=== PATIENT | female | born 1935 | race Caucasian/White ===

== ENCOUNTER 2020-01-27 18:25 | Inpatient (IN) ==
[2020-01-27] MEDS ORDERED: dilTIAZem HCl 5 MG/ML 5 ML VIAL IV STA (20:19)
[2020-01-27] MEDS ORDERED: STAT IV Infusion **Titration per Protocol STA (20:19)
[2020-01-27] MEDS ORDERED: dilTIAZem HCL 125 MG in DEXTROSE 5% 100 ML IV SCH (20:30)
[2020-01-27 20:31] LABS: Basophils # (auto) 0.01 K/uL (0-0.2); Basophils % (auto) 0.1 %; Eosinophils # (auto) 0.02 K/uL (0-0.5); Eosinophils % (auto) 0.2 %; Hematocrit (blood only) 40.7 % (37-47); Hemoglobin 13.1 g/dL (12.0-16.0); Immature Granulocytes # (auto) 0.01 K/uL (0.00-0.02); Immature Granulocytes % (auto) 0.1 %; Lymphocytes # (auto) 1.21 K/uL (1.2-3.4); Mean Corpuscular Hemoglobin 29.3 pg (25-34); Mean Corpuscular Hgb Conc 32.2 g/dL (32-36); Mean Corpuscular Volume 91.1 fL (80-100); Mean Platelet Volume 10.1 fL (7.4-10.4); Monocytes # (auto) 0.87 K/uL (0.11-0.59); Monocytes % (auto) 9.4 %; Neutrophils # (auto) 7.17 K/uL (1.4-6.5); Neutrophils % (auto) 77.2 %; Platelet Count 210 K/uL (130-400); RDW Coefficient of Variation 14.4 % (11.5-14.5); RDW Standard Deviation 47.4 fL (36.4-46.3); Red Blood Count 4.47 M/uL (4.2-5.4); White Blood Count 9.29 K/uL (4.8-10.8)
--- NOTE | 2020-01-27 20:38 | Emergency Department Note ---
History of Present Illness General Chief complaint: Illness Stated complaint: CHF, KIDNEY FAILURE, SOB Time Seen by Provider: 01/27/20 20:10 Source: patient Mode of arrival: ambulatory Limitations: no limitations History of Present Illness Provider complaint: Weakness Zentz to the ED with a chief complaint of generalized weakness. The patient also reports some shortness of breath. Her shortness of breath and symptoms are worse with exertion. She states that her symptoms started on Thursday with some chest pressure as well. She used 2 nitroglycerin sublingual's and this resolved. She saw her doctor this week and had some blood work performed. She was actually in to see her PCP yesterday as well. They told her that she should come in for evaluation to the emergency department. No additional complaints at this time. No recent fever or illness. Home Medications Medication Instructions Recorded Confirmed Type acetaminophen [Tylenol Arthritis 650 mg PO BID PRN 11/17/17 01/27/20 History Pain] albuterol sulfate 2.5 mg INHALATION Q4 PRN 11/17/17 01/27/20 History allopurinol 100 mg PO BID 11/17/17 01/27/20 History atorvastatin 10 mg PO QPM 11/17/17 01/27/20 History glucosamine-chondroitin [Osteo 1 tab PO DAILY 11/17/17 01/27/20 History Bi-Flex] metformin 500 mg PO BID 11/17/17 01/27/20 History nitroglycerin [Nitrostat] 0.4 mg SUBLINGUAL DIRECTED PRN 11/17/17 01/27/20 History Oxygen Home #1 ea 01/04/19 11/21/19 History albuterol sulfate 90 mcg/actuation 90 mcg INHALATION .INHALE 2 PUFFS 01/04/19 01/27/20 History aerosol inhaler EVERY #1 gm amlodipine 2.5 mg tablet 7.5 mg PO QAM #90 tab 08/24/19 01/27/20 Rx glipizide 5 mg tablet 2.5 mg PO BID tab 11/21/19 01/27/20 History sildenafil (pulm.hypertension) 20 See Rx Instructions .ROUTE 01/02/20 01/27/20 Rx mg tablet .COMPLEX #90 tablet aspirin [Aspirin Low Dose] 81 mg PO DAILY 01/27/20 01/27/20 History furosemide 40 mg PO UD 01/27/20 01/27/20 History warfarin [Jantoven] 7.5 mg PO UD 01/27/20 01/27/20 History Allergies Allergy/AdvReac Type Severity Reaction Status Date / Time Sulfa (Sulfonamide Allergy Unknown Unknown Verified 01/27/20 21:43 Antibiotics) Past Med/Surg History Medical History (Updated 01/27/20 @ 22:28 by Manpreet Keating DO) Atrial fibrillation Carotid artery disease S/P ENDARTERECTOMY (R) 8-10YRS AGO Chronic back pain CKD (chronic kidney disease) stage 3, GFR 30-59 ml/min Congestive heart failure DIASTOLIC Diabetes mellitus, type 2 Gout Hyperlipidemia Hypertension Kidney stones On home oxygen therapy 4L DAYTIME 5 L HS NASAL CANNULA JASMIN (obstructive sleep apnea) Osteoarthritis Pulmonary embolism SPONTANEOUS, 7 YRS YRS AGO-ON COUMADIN-NO ISSUES SINCE Pulmonary hypertension SEVERE, COR PULMONALE Respiratory failure SOB (shortness of breath) Surgical History H/O carotid endarterectomy RIGHT H/O colonoscopy H/O cystoscopy 11/2017 History of appendectomy History of cystoscopy STENT INSERTION History of dental surgery Family History Other ESRD (end stage renal disease) Social History Smoking Status: Never smoker Second Hand Exposure: No; Hx Alcohol Use: No Hx Substance Use: No Preferred Language: Slovenian Communication Ability: Effective Visual Impairment: No Limitations Stockroom Helper Required: No Beliefs That Will Affect Care: None marital status: / Current Living Situation: Alone Current Living Situation Comment: FAMILY IN AND OUT Feels Safe at Home: Yes Assistive Devices: Cane, Denture - Upper, Denture - Lower, Glasses and Oxygen - Continuous Review of Systems A total of 10 systems reviewed and were otherwise negative Physical Exam Vital Signs Vital Signs - 24 hr 01/27/20 18:51 01/27/20 18:56 01/27/20 20:40 Temperature 36.5 C Temperature Source Oral Pulse Rate 111 H 150 H Pulse Rate from SpO2 Sensor Respiratory Rate 18 20 Blood Pressure 131/76 Blood Pressure Mean 94 Pulse Oximetry 87 L 93 88 L Oxygen Delivery Method Nasal Cannula Nasal Cannula Nasal Cannula Oxygen Flow Rate 4 6 4 Sepsis Recent Fever Within 48 Hours No Sepsis New/Unexplained Change in Mental Status N/A Sepsis Action Taken by Nursing No Action Required Oxygen Flow Rate - Titration Pulse Oximetry Post Tiitration 01/27/20 20:41 01/27/20 21:00 01/27/20 21:09 Temperature Temperature Source Pulse Rate 104 H 103 H Pulse Rate from SpO2 Sensor 105 H 105 H Respiratory Rate 20 20 Blood Pressure 111/79 Blood Pressure Mean 89 Pulse Oximetry 88 L 94 93 Oxygen Delivery Method Nasal Cannula Oxymask Oxymask Oxygen Flow Rate 4 10 10 Sepsis Recent Fever Within 48 Hours Sepsis New/Unexplained Change in Mental Status Sepsis Action Taken by Nursing Oxygen Flow Rate - Titration 10 Pulse Oximetry Post Tiitration 94 01/27/20 21:15 01/27/20 21:30 01/27/20 21:45 Temperature Temperature Source Pulse Rate 103 H 104 H 109 H Pulse Rate from SpO2 Sensor 109 H 103 H 111 H Respiratory Rate 23 24 21 Blood Pressure 105/74 Blood Pressure Mean 77 Pulse Oximetry 90 93 92 Oxygen Delivery Method Oxymask Oxymask Oxymask Oxygen Flow Rate 10 10 10 Sepsis Recent Fever Within 48 Hours Sepsis New/Unexplained Change in Mental Status Sepsis Action Taken by Nursing Oxygen Flow Rate - Titration Pulse Oximetry Post Tiitration 01/27/20 22:00 01/27/20 22:15 01/27/20 22:30 Temperature Temperature Source Pulse Rate 117 H 112 H 117 H Pulse Rate from SpO2 Sensor 118 H 106 H 122 H Respiratory Rate 18 23 16 Blood Pressure 108/73 Blood Pressure Mean 80 Pulse Oximetry 93 91 92 Oxygen Delivery Method Oxymask Oxymask Oxymask Oxygen Flow Rate 10 10 10 Sepsis Recent Fever Within 48 Hours Sepsis New/Unexplained Change in Mental Status Sepsis Action Taken by Nursing Oxygen Flow Rate - Titration Pulse Oximetry Post Tiitration 01/27/20 22:45 01/27/20 23:04 Temperature Temperature Source Pulse Rate 108 H 110 H Pulse Rate from SpO2 Sensor 114 H Respiratory Rate 23 Blood Pressure Blood Pressure Mean Pulse Oximetry 90 Oxygen Delivery Method Oxymask Oxygen Flow Rate 10 Sepsis Recent Fever Within 48 Hours Sepsis New/Unexplained Change in Mental Status Sepsis Action Taken by Nursing Oxygen Flow Rate - Titration Pulse Oximetry Post Tiitration CONSTITUTIONAL/VITAL SIGNS: Reviewed / noted above. GENERAL: Non-toxic in appearance. INTEGUMENTARY: Warm, dry, and [place]. HEAD: Normocephalic. EYES: without scleral icterus or trauma. ENT/OROPHARYNX: clear and moist. LYMPHADENOPATHY/NECK: Is supple without lymphadenopathy or meningismus. RESPIRATORY: Lungs reveal some basilar crackles. No increased work of breathing. CARDIOVASCULAR: Tachycardic rate and irregular rhythm. GI/ABDOMEN: Soft and nontender. No organomegaly or pulsatile mass. No rebound or guarding. Normal bowel sounds. EXTREMITIES: Warm and well perfused. BACK: No CVA tenderness. NEUROLOGICAL: Intact without focal deficits. PSYCHIATRIC: normal affect. MUSCULOSKELETAL: Normally developed with good muscle tone. TRIAGE NURSING DOCUMENTATION REVIEWED. Course Administered Medications Diltiazem HCl 125 mg/ Dextrose 125 mls @ 10 mls/hr IV .[id number] [facility]; Protocol Stop: 02/26/20 20:29 Last Titration: 01/27/20 22:53 Dose: 15 mg/hr, 15 mls/hr Documented by: [id number] Cosigned by: [id number] Titration: 01/27/20 22:19 Dose: 10 mg/hr, 10 mls/hr Documented by: [id number] Cosigned by: [id number] Admin: 01/27/20 21:22 Dose: 5 mg/hr, 5 mls/hr Documented by: [id number] Cosigned by: [id number] Discontinued Medications Diltiazem HCl (Diltiazem Hcl 5 Mg/Ml 5 Ml Vial) 20 mg IV NOW STA Stop: 01/27/20 20:20 Last Admin: 01/27/20 20:33 Dose: 20 mg Documented by: [id number] Cosigned by: [id number] Digoxin 250 mcg/ Syringe 10 mls @ 2 mls/min IV NOW STA Stop: 01/27/20 22:42 Last Admin: 01/27/20 23:04 Dose: 2 mls/min Documented by: [id number] Miscellaneous (Stat Iv Infusion Titration Per Protocol) 1 ea N/A NOW STA Stop: 01/27/20 20:20 Last Admin: 01/27/20 21:22 Dose: 1 ea Documented by: [id number] Critical Care Time Critical Care Time: Yes Total Critical Care Time: 35 I have personally spent 35 minutes of critical care time in the direct managem ent of this patient. This includes bedside care, interpretation of diagnostic studies, and testing, discussion with consultants, patient, and family members, and other required patient management activities. This 35 minutes is in excess of all separately billable procedures. Medical Decision Making Differential Diagnosis The differential that was considered includes acute myocardial infarction, acute coronary syndrome, myocarditis, pericarditis, pericardial effusions /tamponade, esophageal perforation, thoracic aortic dissection, pulmonary embolism, pneumonia, pneumothorax, pancreatitis, shingles, acute cholecystitis, perforated abdominal viscus. Medical Records Attestation: I reviewed the patient's medical records. Home Medications Current Medication List: was personally reviewed by me Laboratory Data Attestation: I reviewed the patient's lab results. Result diagrams: 01/27/20 20:14 01/27/20 20:14 Lab Results 01/27/20 01/27/20 01/27/20 Range/Units 20:14 20:14 20:14 WBC 9.29 (4.8-10.8) K/uL RBC 4.47 (4.2-5.4) M/uL Hgb 13.1 (12.0-16.0) g/dL Hct 40.7 (37-47) % MCV 91.1 (80-100) fL MCH 29.3 (25-34) pg MCHC 32.2 (32-36) g/dL RDW Std Deviation 47.4 H (36.4-46.3) fL RDW Coeff of Bravo 14.4 (11.5-14.5) % Plt Count 210 (130-400) K/uL MPV 10.1 (7.4-10.4) fL Immature Gran % (Auto) 0.1 % Neut % (Auto) 77.2 % Lymph % (Auto) 13.0 % [place] % (Auto) 9.4 % Eos % (Auto) 0.2 % Baso % (Auto) 0.1 % Neut # (Auto) 7.17 H (1.4-6.5) K/uL Lymph # (Auto) 1.21 (1.2-3.4) K/uL [place] # (Auto) 0.87 H (0.11-0.59) K/uL Eos # (Auto) 0.02 (0-0.5) K/uL Baso # (Auto) 0.01 (0-0.2) K/uL Immature Gran # (Auto) 0.01 (0.00-0.02) K/uL PT 41.8 H (9.0-12.0) Seconds INR 4.3 H (0.9-1.1) APTT 35.1 H (21.0-31.0) Seconds PTT Ratio 1.3 ABG pH (7.35-7.45) ABG pCO2 (35-46) mmHg ABG pO2 (80-95) mmHg ABG HCO3 (19-24) mmol/L ABG O2 Saturation (90-95) % ABG Base Excess (-9-1.8) mEq/L Remy Test (Pos) Barometric Pressure mm/Hg Oxygen Given Sodium 137 (136-145) mmol/L Potassium 5.0 (3.5-5.1) mmol/L Chloride 106 (98-107) mmol/L Carbon Dioxide 24 (21-32) mmol/L Anion Gap 7.0 (3-11) BUN 70 H (7-18) mg/dl Creatinine 2.22 H (0.6-1.2) mg/dl Est Cr Clr Drug Dosing 15.4 ml/min Est GFR ( Amer) 22.4 Est GFR (Non-Af Amer) 19.3 BUN/Creatinine Ratio 31.7 H (10-20) Glucose 157 H (70-99) mg/dl Calcium 9.6 (8.5-10.1) mg/dl Magnesium 2.3 (1.8-2.4) mg/dl Total Bilirubin 0.8 (0.2-1) mg/dl AST 29 (15-37) U/L ALT 23 (12-78) U/L Alkaline Phosphatase 98 (45-117) U/L Total Creatine Kinase 87 (26-192) U/L Troponin I 2.230 H* (0-0.045) ng/ml Total Protein 7.6 (6.4-8.2) gm/dl Albumin 3.6 (3.4-5.0) gm/dl Globulin 4.0 (2.5-4.0) gm/dl Albumin/Globulin Ratio 0.9 (0.9-2) Lipase 283 (73-393) U/L TSH (0.300-4.500) uIu/ml SARS-CoV-2 Ag (Rapid) (Negative) 01/27/20 01/27/20 01/27/20 Range/Units 20:14 22:55 Unknown WBC (4.8-10.8) K/uL RBC (4.2-5.4) M/uL Hgb (12.0-16.0) g/dL Hct (37-47) % MCV (80-100) fL MCH (25-34) pg MCHC (32-36) g/dL RDW Std Deviation (36.4-46.3) fL RDW Coeff of Bravo (11.5-14.5) % Plt Count (130-400) K/uL MPV (7.4-10.4) fL Immature Gran % (Auto) % Neut % (Auto) % Lymph % (Auto) % [place] % (Auto) % Eos % (Auto) % Baso % (Auto) % Neut # (Auto) (1.4-6.5) K/uL Lymph # (Auto) (1.2-3.4) K/uL [place] # (Auto) (0.11-0.59) K/uL Eos # (Auto) (0-0.5) K/uL Baso # (Auto) (0-0.2) K/uL Immature Gran # (Auto) (0.00-0.02) K/uL PT (9.0-12.0) Seconds INR (0.9-1.1) APTT (21.0-31.0) Seconds PTT Ratio ABG pH 7.46 H (7.35-7.45) ABG pCO2 33 L (35-46) mmHg ABG pO2 60 L (80-95) mmHg ABG HCO3 23 (19-24) mmol/L ABG O2 Saturation 90.7 (90-95) % ABG Base Excess -0.4 (-9-1.8) mEq/L Remy Test POS (Pos) Barometric Pressure 742.2 mm/Hg Oxygen Given 10 L Sodium (136-145) mmol/L Potassium (3.5-5.1) mmol/L Chloride (98-107) mmol/L Carbon Dioxide (21-32) mmol/L Anion Gap (3-11) BUN (7-18) mg/dl Creatinine (0.6-1.2) mg/dl Est Cr Clr Drug Dosing ml/min Est GFR ( Amer) Est GFR (Non-Af Amer) BUN/Creatinine Ratio (10-20) Glucose (70-99) mg/dl Calcium (8.5-10.1) mg/dl Magnesium (1.8-2.4) mg/dl Total Bilirubin (0.2-1) mg/dl AST (15-37) U/L ALT (12-78) U/L Alkaline Phosphatase (45-117) U/L Total Creatine Kinase (26-192) U/L Troponin I (0-0.045) ng/ml Total Protein (6.4-8.2) gm/dl Albumin (3.4-5.0) gm/dl Globulin (2.5-4.0) gm/dl Albumin/Globulin Ratio (0.9-2) Lipase (73-393) U/L TSH 8.030 H (0.300-4.500) uIu/ml SARS-CoV-2 Ag (Rapid) Negative (Negative) Imaging Data Radiologist's Impression: SINGLE VIEW CHEST CLINICAL HISTORY: Atypical chest pain. FINDINGS: An AP, portable, upright chest radiograph is compared to study dated 11/30/2017. Correlation is made with chest CT dated 10/21/2011. The heart is markedly enlarged noting atherosclerotic calcification of the thoracic aorta. There is pulmonary vascular congestion. Small pleural effusions are noted with bibasilar atelectasis. Hazy airspace opacities are seen bilaterally. No pneumothorax is seen. The skeletal structures are osteopenic. The bony thorax is grossly intact. IMPRESSION: 1. Cardiomegaly with evidence of congestive failure. 2. Small pleural effusions. 3. Hazy bilateral airspace opacities likely represent interstitial edema. Correlate clinically for evidence of a superimposed infectious/inflammatory pneumonitis. ECG Data Attestation: I personally reviewed and interpreted this ECG as follows: Indication: + SOB/dyspnea Rate (beats per minute): 145 Rhythm: + atrial flutter ECG ST segments: no ST elevation ECG Findings: no PVCs MDM Narrative This is an 85-year-old female who presents to the ED with a chief complaint of some chest pressure, weakness and shortness of breath as detailed above. Patient exam reveals a flutter with RVR with a heart rate of 145. She does have a history of PE and is chronically on Coumadin. She had some blood work yesterday that showed a BUN of 60 and a creatinine of 2.0. The patient's BUN today is 70 and creatinine is 2.2. Glucose is 157. Troponin is elevated at 2.2. Chest x-ray is suggestive of congestive heart failure. The patient's INR is 4.3. The patient was treated with IV Cardizem bolus and drip. She was not given diuretics as her blood pressure was low normal and she needed titration room for the Cardizem drip. I spoke with the hospitalist. He will see the patient for further evaluation and care. The heart rate did improve some during her stay. Impression & Plan Atrial flutter with rapid ventricular response Discharge Plan Visit Data Chief Complaint: Illness Stated Complaint: CHF, KIDNEY FAILURE, SOB ED Provider: Manpreet Keating Discharge Problem: Atrial flutter with rapid ventricular response Patient Disposition: Being Evaluated by Hospitalist Forms Stand Alone Forms: [facility] Prescriptions Prescriptions: No Action amlodipine 2.5 mg tablet 7.5 mg PO QAM Qty: 90 RF: 5 sildenafil (pulm.hypertension) 20 mg tablet See Rx Instructions .ROUTE .COMPLEX Qty: 90 RF: 1 albuterol sulfate 90 mcg/actuation HFA aerosol inhaler 90 mcg inhalation .INHALE 2 PUFFS EVERY Qty: 1 RF: 0 (DME) Oxygen Home Liters Per Minute See Dose Instructions .ROUTE .MEDSUPPLY Qty: 1 RF: 0 glipizide 5 mg tablet 2.5 mg PO BID RF: 0 metformin 500 mg Tablet 500 mg PO BID RF: 0 albuterol sulfate 2.5 mg /3 mL (0.083 %) Solution For Nebulization 2.5 mg INHALATION Q4 PRN (Reason: Shortness Of Breath) RF: 0 atorvastatin 10 mg Tablet 10 mg PO QPM RF: 0 allopurinol 100 mg Tablet 100 mg PO BID RF: 0 acetaminophen [Tylenol Arthritis Pain] 650 mg Tablet Extended Release 650 mg PO BID PRN (Reason: Pain) RF: 0 nitroglycerin [Nitrostat] 0.4 mg Tablet, Sublingual 0.4 mg Sublingual DIRECTED PRN (Reason: Chest Pain) RF: 0 glucosamine-chondroitin [Osteo Bi-Flex] 250-200 mg Tablet 1 tab PO DAILY RF: 0 furosemide 40 mg tablet 40 mg PO UD RF: 0 aspirin [Aspirin Low Dose] 81 mg Tablet,Delayed Release (Dr/Ec) 81 mg PO DAILY RF: 0 warfarin [Jantoven] 7.5 mg tablet 7.5 mg PO UD RF: 0 Referrals Referrals: Peter Lester MD [Primary Care Provider] -
[2020-01-27 20:42] LABS: Albumin Level 3.6 gm/dl (3.4-5.0); BUN Creatinine Ratio 31.7 (10-20); Calcium 9.6 mg/dl (8.5-10.1); Creatinine Clr Calc Pharmacy 15.4 ml/min; Est GFR (African American) 22.4; Est GFR (Non-African American) 19.3
[2020-01-27 20:51] LABS: Albumin Globulin Ratio 0.9 (0.9-2); Bilirubin,Total 0.8 mg/dl (0.2-1); INR 4.3 (0.9-1.1); Partial Thromboplastin Ratio 1.3; Partial Thromboplastin Time 35.1 Seconds (21.0-31.0); Prothrombin Time 41.8 Seconds (9.0-12.0); Total Protein 7.6 gm/dl (6.4-8.2); Troponin I 2.23 ng/ml (0-0.045)
--- NOTE | 2020-01-27 21:11 | XRay Report ---
SINGLE VIEW CHEST CLINICAL HISTORY: Atypical chest pain. FINDINGS: An AP, portable, upright chest radiograph is compared to study dated 11/30/2017. Correlation is made with chest CT dated 10/21/2011. The heart is markedly enlarged noting atherosclerotic calcifi cation of the thoracic aorta. There is pulmonary vascular congestion. Small pleural effusions are not ed with bibasilar atelectasis. Hazy airspace opacities are seen bilaterally. No pneumothorax is seen. The skeletal structures are osteopenic. The bony thorax is grossly intact. IMPRESSION: 1. Cardiomegaly with evidence of congestive failure. 2. Small pleural effusions. 3. Hazy bilateral airspace opacities likely represent interstitial edema. Correlate clinically for ev idence of a superimposed infectious/inflammatory pneumonitis. ACT 112: Negative or not required by law. Electronically signed by: Rohit Olmedo M.D. 01/27/2020 9:09 PM
[2020-01-27] MEDS ORDERED: FUROSEMIDE 40 MG/4 ML VIAL IV STA (22:38)
[2020-01-27] MEDS ORDERED: DIGOXIN 250 MCG in SYRINGE 9 ML IV STA (22:38)
[2020-01-27] MEDS ORDERED: METOPROLOL TARTRATE 50 MG TAB PO STA (22:40)
[2020-01-27] MEDS ORDERED: ALBUMIN 25% 12.5 GM/50 ML VIAL IV STA (22:51)
[2020-01-27 22:54] LABS: Magnesium 2.3 mg/dl (1.8-2.4)
[2020-01-27 23:20] LABS: Allen Test POS (Pos); Base Excess ABG -0.4 mEq/L (-9-1.8); HCO3 ABG 23 mmol/L (19-24); Oxygen Saturation ABG 90.7 % (90-95); PCO2 ABG 33 mmHg (35-46); PO2 ABG 60 mmHg (80-95); pH ABG 7.46 (7.35-7.45)
[2020-01-28] MEDS ORDERED: IPRATROPIUM BROMIDE NEB SOLN 0.02% 2.5 ML VIAL INH SCH (00:06)
[2020-01-28] MEDS ORDERED: LEVALBUTEROL 1.25MG/0.5ML NEB INH SCH (00:06)
[2020-01-28 00:42] LABS: Appearance Urine Clear (Clear); Bacteria Urine Automated 1+ (Negative); Bilirubin Urine Negative (Negative); Blood Urine Negative (Negative); Color Urine Yellow; Epithelial Cell Urine Auto >30 /lpf (0-5); Glucose Urine UA Negative (Negative); Ketones Urine Negative (Negative); Leukocyte Esterase Urine Trace (Negative); Nitrite Urine Negative (Negative); Protein Urine Trace (Negative); RBC Urine Automated 0-4 /hpf (0-4); Specific Gravity Urine 1.022 (1.000-1.030); Urobilinogen Urine Negative (Negative)
--- NOTE | 2020-01-28 00:43 | History & Physical Report ---
Date of Service January 27, 2020 (LATE ENTRY) Assessment & Plan (1) Respiratory failure, acute and chronic: Acute on chronic History of chronic respiratory failure secondary to pulmonary hypertension/nocturnal hypoxemia on home O2 as per records Secondary to decompensated heart failure Multifactorial : NSTEMI Rapid atrial flutter, hx PAF as per records ? Cardiorenal syndrome (ARF on CKD) Hypertension, BP on the lower side hx PE on Coumadin, INR supratherapeutic PVD sp surgery DM 2 on oral meds, well controlled as of recent outpatient hemoglobin A1c of 6.6, September 2019 PCU Supplemental O2 Lasix albumin Follow renal function Initiate beta-jayson Rx for ACS, CHF, atrial flutter, hx AF Wean off Cardizem infusion Trend troponin Continue home aspirin for CAD prevention TTE, Cardiology consult RE ACS, recurrent AF, decompensated CHF Nephrology consult Re: ARF on CKD ISS BG goal 140-180, update hemoglobin A1c DVT prophylaxis. Coumadin INR goal between 2 and 3 Full code Patient's daughters requesting updates from providers. Ms. Ynes Ramon thru [phone]. Ms. Iemlda Kinney thru [phone]. Total critical time was 45 minutes. Text document was generated using [employer] voice recognition software. It may contain grammatical or spelling errors. Kindly contact undersigned for clarification of any documentation item in question. History of Present Illness Chief Complaint: Shortness of breath Primary Care Provider: Peter Lester MD History obtained from patient, family, and records. Medical history significant for chronic respiratory failure secondary to pulmonary hypertension secondary to nocturnal hypoxemia on home O2, chronic diastolic heart failure EF of 65-69% (TTE 2016), PAF, HTN, PVD status post surgery, history PE on Coumadin, DM2 on oral meds, CRI (baseline creatinine 1.3) Last confinement November 2017 for respiratory failure secondary to possible aspiration. Last week, patient noted achy substernal chest heaviness without radiation and shortness of breath at home during exertion. No unusual cough symptoms. Chest discomfort relieved by nitroglycerin intake at home. Patient did not want to go to the ER for evaluation as per family. Worsening shortness of breath on exertion the next few days along with fluid retention as per patient. Minimal abdominal discomfort, patient worried about "silent" kidney stones. Denies OTC NSAID intake or dietary indiscretion. Patient seen at PCP's office yesterday. Blood pressure noted to be low, patient noted to be tachycardic but regular as per outpatient documentation. ER evaluation recommended by PCP due to concerns about possible heart failure. Chest x-ray showed congestion as per PCP note. Outpatient serum creatinine noted to be 2. Patient eventually heeded PCP's advice and family's urging to go to the ER to get evaluated. Patient noted to be in rapid A. fib, cardiac rate 150s at the highest upon arrival at the ER. IV Cardizem infusion initiated at the ER. Medical History as above Surgical History : Carotid endarterectomy, cystoscopy Family History : ESRD Personal/Social history : Non-smoker, no EtOH intake, lives by herself Allergies Allergy/AdvReac Type Severity Reaction Status Date / Time Sulfa (Sulfonamide Allergy Unknown Unknown Verified 01/27/20 21:43 Antibiotics) Home Medications Medication Instructions Recorded Confirmed Type acetaminophen [Tylenol Arthritis 650 mg PO BID PRN 11/17/17 01/27/20 History Pain] albuterol sulfate 2.5 mg INHALATION Q4 PRN 11/17/17 01/27/20 History allopurinol 100 mg PO BID 11/17/17 01/27/20 History atorvastatin 10 mg PO QPM 11/17/17 01/27/20 History glucosamine-chondroitin [Osteo 1 tab PO DAILY 11/17/17 01/27/20 History Bi-Flex] metformin 500 mg PO BID 11/17/17 01/27/20 History nitroglycerin [Nitrostat] 0.4 mg SUBLINGUAL DIRECTED PRN 11/17/17 01/27/20 History Oxygen Home #1 ea 01/04/19 11/21/19 History albuterol sulfate 90 mcg/actuation 90 mcg INHALATION .INHALE 2 PUFFS 01/04/19 01/27/20 History aerosol inhaler EVERY #1 gm amlodipine 2.5 mg tablet 7.5 mg PO QAM #90 tab 08/24/19 01/27/20 Rx glipizide 5 mg tablet 2.5 mg PO BID tab 11/21/19 01/27/20 History sildenafil (pulm.hypertension) 20 See Rx Instructions .ROUTE 01/02/20 01/27/20 Rx mg tablet .COMPLEX #90 tablet aspirin [Aspirin Low Dose] 81 mg PO DAILY 01/27/20 01/27/20 History furosemide 40 mg PO UD 01/27/20 01/27/20 History warfarin [Jantoven] 7.5 mg PO UD 01/27/20 01/27/20 History Past Med/Surg History Medical History (Updated 01/28/20 @ 08:34 by Favian Odom MD) Atrial fibrillation Carotid artery disease S/P ENDARTERECTOMY (R) 8-10YRS AGO Chronic back pain CKD (chronic kidney disease) stage 3, GFR 30-59 ml/min Congestive heart failure DIASTOLIC Diabetes mellitus, type 2 Gout Hyperlipidemia Hypertension Kidney stones On home oxygen therapy 4L DAYTIME 5 L HS NASAL CANNULA JASMIN (obstructive sleep apnea) Osteoarthritis Pulmonary embolism SPONTANEOUS, 7 YRS YRS AGO-ON COUMADIN-NO ISSUES SINCE Pulmonary hypertension SEVERE, COR PULMONALE Respiratory failure SOB (shortness of breath) Surgical History H/O carotid endarterectomy RIGHT H/O colonoscopy H/O cystoscopy 11/2017 History of appendectomy History of cystoscopy STENT INSERTION History of dental surgery Family History Other ESRD (end stage renal disease) Social History Smoking Status: Never smoker Second Hand Exposure: No; Hx Alcohol Use: No Hx Substance Use: No Preferred Language: Bhutanese Communication Ability: Effective Visual Impairment: No Limitations Quantitative Analyst [employer] Required: No Beliefs That Will Affect Care: None marital status: / Current Living Situation: Alone Feels Safe at Home: Yes Assistive Devices: Glasses Review of Systems Review of Systems: As per HPI, all 10 systems reviewed, all other ROS negative Physical Exam Physical Exam: GENERAL: Comfortable, pleasant, minimal respiratory distress SKIN: Normal color , warm HEENT: [place] palpebral conjunctivae, no ptosis, dry buccal mucosa, O2 mask in place NECK : Supple, no tenderness CHEST : Decreased breath sounds, occasional expiratory wheezes, no tenderness HEART : Irregular, tachycardic, no obvious murmurs ABDOMEN: Some distention, nontender EXTREMITIES : Minimal LE swelling, no LE tenderness, no other conspicuous deformities noted NEUROLOGIC : Coherent, no facial asymmetry, mild hearing impairment, no other gross focality Results & Data Results & Data ([facility]) Vital Signs (Past 12 Hours) Vital Signs Temp Pulse Resp BP Pulse Ox 01/27/20 23:04 110 H 01/27/20 22:45 108 H 23 90 01/27/20 22:30 117 H 16 92 01/27/20 22:15 112 H 23 91 01/27/20 22:00 117 H 18 108/73 93 01/27/20 21:45 109 H 21 92 01/27/20 21:30 104 H 24 105/74 93 01/27/20 21:15 103 H 23 90 01/27/20 21:09 103 H 20 93 01/27/20 21:00 104 H 20 111/79 94 01/27/20 20:41 88 L 01/27/20 20:40 150 H 20 88 L 01/27/20 18:56 93 01/27/20 18:51 36.5 C 111 H 18 131/76 87 L Laboratory Results Laboratory Results WBC 9.29 K/uL (4.8-10.8) 01/27/20 20:14 RBC 4.47 M/uL (4.2-5.4) 01/27/20 20:14 Hgb 13.1 g/dL (12.0-16.0) 01/27/20 20:14 Hct 40.7 % (37-47) 01/27/20 20:14 MCV 91.1 fL (80-100) 01/27/20 20:14 MCH 29.3 pg (25-34) 01/27/20 20:14 MCHC 32.2 g/dL (32-36) 01/27/20 20:14 RDW Std Deviation 47.4 fL (36.4-46.3) H 01/27/20 20:14 RDW Coeff of Bravo 14.4 % (11.5-14.5) 01/27/20 20:14 Plt Count 210 K/uL (130-400) 01/27/20 20:14 MPV 10.1 fL (7.4-10.4) 01/27/20 20:14 Immature Gran % (Auto) 0.1 % 01/27/20 20:14 Neut % (Auto) 77.2 % 01/27/20 20:14 Lymph % (Auto) 13.0 % 01/27/20 20:14 [place] % (Auto) 9.4 % 01/27/20 20:14 Eos % (Auto) 0.2 % 01/27/20 20:14 Baso % (Auto) 0.1 % 01/27/20 20:14 Neut # (Auto) 7.17 K/uL (1.4-6.5) H 01/27/20 20:14 Lymph # (Auto) 1.21 K/uL (1.2-3.4) 01/27/20 20:14 [place] # (Auto) 0.87 K/uL (0.11-0.59) H 01/27/20 20:14 Eos # (Auto) 0.02 K/uL (0-0.5) 01/27/20 20:14 Baso # (Auto) 0.01 K/uL (0-0.2) 01/27/20 20:14 Immature Gran # (Auto) 0.01 K/uL (0.00-0.02) 01/27/20 20:14 PT 41.8 Seconds (9.0-12.0) H 01/27/20 20:14 INR 4.3 (0.9-1.1) H 01/27/20 20:14 APTT 35.1 Seconds (21.0-31.0) H 01/27/20 20:14 PTT Ratio 1.3 01/27/20 20:14 ABG pH 7.46 (7.35-7.45) H 01/27/20 22:55 ABG pCO2 33 mmHg (35-46) L 01/27/20 22:55 ABG pO2 60 mmHg (80-95) L 01/27/20 22:55 ABG HCO3 23 mmol/L (19-24) 01/27/20 22:55 ABG O2 Saturation 90.7 % (90-95) 01/27/20 22:55 ABG Base Excess -0.4 mEq/L (-9-1.8) 01/27/20 22:55 Remy Test POS (Pos) 01/27/20 22:55 Barometric Pressure 742.2 mm/Hg 01/27/20 22:55 Oxygen Given 10 L 01/27/20 22:55 Sodium 137 mmol/L (136-145) 01/27/20 20:14 Potassium 5.0 mmol/L (3.5-5.1) 11/20/20 20:14 Chloride 106 mmol/L (98-107) 01/27/20 20:14 Carbon Dioxide 24 mmol/L (21-32) 01/27/20 20:14 Anion Gap 7.0 (3-11) 01/27/20 20:14 BUN 70 mg/dl (7-18) H 01/27/20 20:14 Creatinine 2.22 mg/dl (0.6-1.2) H 01/27/20 20:14 Est Cr Clr Drug Dosing 15.4 ml/min 01/27/20 20:14 Est GFR ( Amer) 22.4 01/27/20 20:14 Est GFR (Non-Af Amer) 19.3 01/27/20 20:14 BUN/Creatinine Ratio 31.7 (10-20) H 01/27/20 20:14 Glucose 157 mg/dl (70-99) H 01/27/20 20:14 Calcium 9.6 mg/dl (8.5-10.1) 01/27/20 20:14 Magnesium 2.3 mg/dl (1.8-2.4) 01/27/20 20:14 Total Bilirubin 0.8 mg/dl (0.2-1) 01/27/20 20:14 AST 29 U/L (15-37) 01/27/20 20:14 ALT 23 U/L (12-78) 01/27/20 20:14 Alkaline Phosphatase 98 U/L (45-117) 01/27/20 20:14 Total Creatine Kinase 87 U/L (26-192) 01/27/20 20:14 Troponin I 2.230 ng/ml (0-0.045) H* 01/27/20 20:14 Total Protein 7.6 gm/dl (6.4-8.2) 01/27/20 20:14 Albumin 3.6 gm/dl (3.4-5.0) 01/27/20 20:14 Globulin 4.0 gm/dl (2.5-4.0) 01/27/20 20:14 Albumin/Globulin Ratio 0.9 (0.9-2) 01/27/20 20:14 Lipase 283 U/L (73-393) 01/27/20 20:14 TSH 8.030 uIu/ml (0.300-4.500) H 01/27/20 20:14 SARS-CoV-2 Ag (Rapid) Negative (Negative) 01/27/20 Unknown Diagnostic Findings Chest x-ray : 1. Cardiomegaly with evidence of congestive failure. 2. Small pleural effusions. 3. Hazy bilateral airspace opacities likely represent interstitial edema. Correlate clinically for evidence of a superimposed infectious/inflammatory pneumonitis. EKG as per my interpretation : Rate 145, atrial flutter, RAD, LP FB, anteroseptal infarct T wave abnormalities inferior leads, ST depression lateral leads Code Status & VTE Plan VTE Prophylaxis Plan VTE Prophylaxis will be ordered: Yes
[2020-01-28] MEDS ORDERED: XOPENEX/ATROVENT 1.25mg/0.5MG NEB COMBO NEB STA ×2 (01:07→06:18)
[2020-01-28] MEDS ORDERED: ACETAMINOPHEN 325 MG TAB PO PRN (01:07)
[2020-01-28] MEDS ORDERED: PROMETHAZINE HCL 6.25 MG in SODIUM CHLORIDE 0.9% 50 ML IV PRN (01:07)
[2020-01-28] MEDS ORDERED: GLUCOSE 40% GEL 15 GM TUBE PO PRN (01:07)
[2020-01-28] MEDS ORDERED: DEXTROSE 50% 50 ML SYRINGE IV PRN (01:07)
[2020-01-28] MEDS ORDERED: traMADol HCL 50 MG TABLET PO PRN (01:07)
[2020-01-28] MEDS ORDERED: NITROGLYCERIN SL 0.4 MG/TAB TAB SL PRN (01:07)
[2020-01-28] MEDS ORDERED: GLUCOSE 10 TABS/TUBE PO PRN (01:07)
[2020-01-28] MEDS ORDERED: GLUCAGON FOR INJ 1 MG VIAL SQ PRN (01:07)
[2020-01-28] MEDS ORDERED: CARBOHYDRATES FOR HYPOGLYCEMIA PO PRN (01:07)
[2020-01-28] MEDS ORDERED: IPRATROPIUM BROMIDE NEB SOLN 0.02% 2.5 ML VIAL INH STA ×2 (01:25→06:24)
[2020-01-28] MEDS ORDERED: LEVALBUTEROL 1.25MG/0.5ML NEB INH STA ×2 (01:25→06:24)
[2020-01-28] MEDS ORDERED: ALBUMIN 25% 12.5 GM/50 ML VIAL IV STA (01:37)
[2020-01-28] MEDS ORDERED: METOPROLOL TARTRATE 25 MG TAB PO STA (01:53)
[2020-01-28] MEDS: INSULIN ASPART 100 UNITS/ML 3 ML PEN SC SCH ×5 (02:14→20:34)
[2020-01-28 04:12] LABS: Basophils # (auto) 0.01 K/uL (0-0.2); Basophils % (auto) 0.1 %; Eosinophils # (auto) 0.03 K/uL (0-0.5); Eosinophils % (auto) 0.4 %; Hematocrit (blood only) 37.2 % (37-47); Hemoglobin 11.9 g/dL (12.0-16.0); Immature Granulocytes # (auto) 0.02 K/uL (0.00-0.02); Immature Granulocytes % (auto) 0.2 %; Lymphocytes # (auto) 1.09 K/uL (1.2-3.4); Lymphocytes % (auto) 13.4 %; Mean Corpuscular Hemoglobin 29.1 pg (25-34); Mean Platelet Volume 9.6 fL (7.4-10.4); Monocytes # (auto) 0.55 K/uL (0.11-0.59); Monocytes % (auto) 6.7 %; Neutrophils # (auto) 6.46 K/uL (1.4-6.5); Neutrophils % (auto) 79.2 %; Platelet Count 177 K/uL (130-400); RDW Coefficient of Variation 14.3 % (11.5-14.5); Red Blood Count 4.09 M/uL (4.2-5.4); White Blood Count 8.16 K/uL (4.8-10.8)
[2020-01-28 04:30] LABS: INR 4.2 (0.9-1.1)
[2020-01-28 04:32] LABS: Calcium 8.9 mg/dl (8.5-10.1); Creatinine Clr Calc Pharmacy 18.9 ml/min; Est GFR (African American) 25.4; Est GFR (Non-African American) 21.9; Potassium 4.2 mmol/L (3.5-5.1)
[2020-01-28 04:38] LABS: Troponin I 2.54 ng/ml (0-0.045)
[2020-01-28] MEDS: dilTIAZem HCL 125 MG in DEXTROSE 5% 100 ML IV SCH ×4 (05:36→22:09)
[2020-01-28] MEDS ORDERED: ALBUMIN 25% 12.5 GM/50 ML VIAL IV SCH ×2 (06:20→09:00)
[2020-01-28] MEDS ORDERED: FUROSEMIDE 40 MG/4 ML VIAL IV SCH ×2 (06:30→09:00)
[2020-01-28] MEDS: allopurinoL 100 MG TAB PO SCH ×2 (07:54→20:42)
[2020-01-28] MEDS: ASPIRIN 81 MG ECTAB PO SCH (07:54)
[2020-01-28] MEDS: METOPROLOL TARTRATE 25 MG TAB PO SCH ×2 (07:55→20:44)
--- NOTE | 2020-01-28 08:52 | CT Scan Report ---
CT SCAN OF THE ABDOMEN AND PELVIS WITHOUT CONTRAST CLINICAL HISTORY: Abdominal pain, history of a kidney stone. Renal failure. COMPARISON STUDY: 11/17/2017 TECHNIQUE: CT scan of the abdomen and pelvis was performed from the lung bases to the proximal femurs . Images are reviewed in the axial, sagittal, and coronal planes. IV contrast was not administered fo r this examination. A dose lowering technique was utilized adhering to the principles of ALARA. CT DOSE: 896.89 mGycm FINDINGS: Lower chest: The heart is enlarged. There is a small pericardial effusion. There are small bilateral pleural effusions. There are dependent basilar opacities, likely atelectatic although an infectious/i nflammatory processes could appear similar. There is a small hiatal hernia Liver: The unenhanced liver is normal in size, contour, and attenuation. There is no intrahepatic marlyn iary ductal dilatation. Gallbladder: Cholelithiasis Spleen: Normal in size and attenuation. Pancreas: Unremarkable. Adrenal glands: There is mild bilateral adrenal gland thickening. Kidneys: There is bilateral renal atrophy. There is a 13 mm left renal cyst. No ureteral or bladder c alculi are visualized. Bowel: There are no transition zones indicate bowel obstruction. There is colonic diverticulosis. The re is no evidence of acute diverticulitis. There is mild nonspecific duodenal wall thickening. There is minimal cecal wall thickening. By history the patient is status post a prior appendectomy. Peritoneum: There is trace fluid within the paracolic gutters. There is no free intraperitoneal air. There is suspected anasarca. Vasculature: There is no evidence of abdominal aortic aneurysm. There are atherosclerotic arterial ca lcifications. Adenopathy: Para-aortic lymph nodes are the upper limits of normal in size. Pelvic viscera: There are no pathologic adnexal masses. There is mild presacral edema. This remain si milar to the prior study. Skeletal structures: There is generalized body wall edema. IMPRESSION: 1. No evidence of bowel obstruction. No evidence of free air 2. Cholelithiasis 3. Diverticulosis. No evidence of acute diverticulitis 4. Nonspecific duodenal wall thickening, and borderline cecal wall thickening 5. Small bilateral pleural effusions and basilar opacity statistically atelectatic 6. Anasarca. ACT 112: Negative or not required by law. Electronically signed by: Garrett Epstein M.D. 01/28/2020 8:51 AM
[2020-01-28] MEDS ORDERED: amLODIPine BESYLATE 5 MG TAB PO SCH (09:00)
[2020-01-28 09:32] LABS: Estimated Average Glucose 140 mg/dl; Hemoglobin A1C 6.5 % (4.5-5.6)
--- NOTE | 2020-01-28 10:57 | XRay Report ---
XR chest 1V portable HISTORY: Hypoxia. Follow-up. COMPARISON: Chest 01/27/2020. FINDINGS: No pneumothorax. Trace bilateral pleural effusions, perihilar interstitial thickening, and perihilar hazy airspace opacities have improved. The heart remains enlarged. This favors resolving pu lmonary edema. IMPRESSION: Slight improvement in the perihilar hazy airspace opacities and trace bilateral pleural effusions. Th is favors resolving pulmonary edema. ACT 112: Negative or not required by law. Electronically signed by: Yogi Kahn M.D. 01/28/2020 10:56 AM
--- NOTE | 2020-01-28 14:50 | Cardiology Consultation ---
Date of Consultation January 28, 2020 Assessment & Plan (1) Respiratory failure, acute and chronic: (2) Atrial fibrillation: Patient with longstanding history of multifactorial lung disease including COPD, and cor pulmonale physiology presumed to be due to remote motor embolism. INR is 4 and therefore Coumadin is on hold. Creatinine is 2, compared to prior baseline in the range of 1.4-1.7. Troponin I presentation was 2.23, and 2.54, and most recently 2.47. Newly recognized atrial fibrillation with rapid ventricular response is present, the patient was documented to have an episode of narrow complex tachycardia felt to be due to either SVT or atrial flutter in 2018. Her proBNP screen is elevated at 32,287. Echocardiogram reveals right ventricular pressure/volume overload pattern, relatively unchanged compared to 2017. Patient is likely had a non-ST segment elevation myocardial infarction, perhaps due to underlying coronary heart disease, or just due to supply demand mismatch in the setting of worsening respiratory failure and atrial fibrillation with rapid ventricular response. Continue supportive care with oxygen. Hold anticoagulation given INR of [address] of the abdomen and pelvis and the chest x-ray results this admission, interstitial edema has been present, and I agree with the plan to proceed with diuretic therapy. Continue diltiazem for rate control. No plans for emergent cardiac catheterization at present. History of Present Illness Attending Physician: Srinath Gregory MD History of Present Illness Kim Awad is an 85-year-old female seen in cardiology consultation per the request of Dr. Odom for the evaluation of respiratory insufficiency, elevated troponin, and new onset atrial fibrillation with rapid ventricular response. The patient typically follows with Dr. Perez of our practice as an outpatient, and she follows with [facility] pulmonary medicine. Review of her chart reveals longstanding history of past pulmonary emboli, described in outpatient notes as being "saddle pulmonary embolism "for which she is on chronic Coumadin. Cor pulmonale physiology is described in her outpatient notes with an echocardiogram having been performed in 2017 revealing severe right ventricular chamber size and systolic dysfunction with right ventricular pressure/volume overload physiology noted at that time. She is on chronic supplementary oxygen 24 hours a day, and has a history of diastolic dysfunction. Her recent symptoms include chest discomfort that occurred briefly last week, and then worsening shortness of breath. On presentation, she was found to have atrial fibrillation with rapid ventricular response, with presenting EKG revealing ventricular rate of 145 bpm last evening. Age-indeterminate inferior and anterior infarct pattern noted on EKG, as well as incomplete right bundle branch block. EKG performed as an outpatient 01/26/2020 at 1303 revealed atrial fibrillation with rapid ventricular response in the 140s, and right bundle branch block morphology. Prior outpatient EKG dated 09/28/2018 revealed normal sinus rhythm with inferior and lateral T wave inversions. The patient has had a [id number] COVID-19 screen which was negative. She is received high flow oxygen and is currently on BiPAP, with improvement in her respiratory status. Intravenous diltiazem has been initiated with improvement in her ventricular rate down to 90 bpm. She denies any current chest discomfort. And she looks very comfortable. Allergies Allergy/AdvReac Type Severity Reaction Status Date / Time Sulfa (Sulfonamide Allergy Unknown Unknown Verified 01/27/20 21:43 Antibiotics) Home Medications Medication Instructions Recorded Confirmed Type acetaminophen [Tylenol Arthritis 650 mg PO BID PRN 11/17/17 01/27/20 History Pain] albuterol sulfate 2.5 mg INHALATION Q4 PRN 11/17/17 01/27/20 History allopurinol 100 mg PO BID 11/17/17 01/27/20 History atorvastatin 10 mg PO QPM 11/17/17 01/27/20 History glucosamine-chondroitin [Osteo 1 tab PO DAILY 11/17/17 01/27/20 History Bi-Flex] metformin 500 mg PO BID 11/17/17 01/27/20 History nitroglycerin [Nitrostat] 0.4 mg SUBLINGUAL DIRECTED PRN 11/17/17 01/27/20 History Oxygen Home #1 ea 01/04/19 11/21/19 History albuterol sulfate 90 mcg/actuation 90 mcg INHALATION .INHALE 2 PUFFS 01/04/19 01/27/20 History aerosol inhaler EVERY #1 gm amlodipine 2.5 mg tablet 7.5 mg PO QAM #90 tab 08/24/19 01/27/20 Rx glipizide 5 mg tablet 2.5 mg PO BID tab 11/21/19 01/27/20 History sildenafil (pulm.hypertension) 20 See Rx Instructions .ROUTE 01/02/20 01/27/20 Rx mg tablet .COMPLEX #90 tablet aspirin [Aspirin Low Dose] 81 mg PO DAILY 01/27/20 01/27/20 History furosemide 40 mg PO UD 01/27/20 01/27/20 History warfarin [Jantoven] 7.5 mg PO UD 01/27/20 01/27/20 History Patient History Medical History (Updated 01/28/20 @ 08:34 by Favian Odom MD) Atrial fibrillation Carotid artery disease S/P ENDARTERECTOMY (R) 8-10YRS AGO Chronic back pain CKD (chronic kidney disease) stage 3, GFR 30-59 ml/min Congestive heart failure DIASTOLIC Diabetes mellitus, type 2 Gout Hyperlipidemia Hypertension Kidney stones On home oxygen therapy 4L DAYTIME 5 L HS NASAL CANNULA JASMIN (obstructive sleep apnea) Osteoarthritis Pulmonary embolism SPONTANEOUS, 7 YRS YRS AGO-ON COUMADIN-NO ISSUES SINCE Pulmonary hypertension SEVERE, COR PULMONALE Respiratory failure SOB (shortness of breath) Surgical History H/O carotid endarterectomy RIGHT H/O colonoscopy H/O cystoscopy 11/2017 History of appendectomy History of cystoscopy STENT INSERTION History of dental surgery Family History Other ESRD (end stage renal disease) Social History Smoking Status: Never smoker Second Hand Exposure: No; Hx Alcohol Use: No Hx Substance Use: No Preferred Language: Romansh Communication Ability: Effective Visual Impairment: No Limitations Rug Hooker Required: No Beliefs That Will Affect Care: None marital status: / Current Living Situation: Alone Feels Safe at Home: Yes Assistive Devices: BiPap Review of Systems Review of Systems: All systems reviewed & are unremarkable except as noted in HPI & below Physical Exam Physical Exam: Temp Pulse Resp BP Pulse Ox 36.6 C 90 17 112/72 91 01/28/20 11:31 01/28/20 11:56 01/28/20 11:44 01/28/20 11:31 01/28/20 11:56 Constitutional: WD/WN, vitals as above Respiratory: Coarse breath sounds bilaterally at the bases and midlung garcia Cardiovascular: Rate/Rhythm: + tachycardic and + irregularly irregular Heart Sounds: no murmur Gastrointestinal (Abdomen): normal bowel sounds, soft, nontender, no hepatosplenomegaly Neurologic: PERRL, EOMI, accommodation nl, no face palsy, no dysarthria Results & Data ([facility]) Vital Signs (Past 12 Hours) Vital Signs Temp Pulse Pulse Resp BP BP Pulse Ox 01/28/20 11:56 90 01/28/20 11:44 99 H 17 94 01/28/20 11:31 36.6 C 91 H 26 H 112/72 87 L 01/28/20 11:00 01/28/20 09:00 110 H 23 90 01/28/20 08:23 102 H 27 H 113/67 90 01/28/20 08:00 102 H 20 92 01/28/20 07:23 102 H 16 119/68 87 L 01/28/20 07:00 102 H 19 88 L 01/28/20 06:45 101 H 18 87 L 01/28/20 06:23 101 H 18 108/67 86 L 01/28/20 06:00 101 H 101 H 20 88 L 01/28/20 05:23 101 H 19 122/72 88 L 01/28/20 05:00 101 H 19 88 L 01/28/20 04:23 101 H 21 106/75 89 L 01/28/20 04:00 36.6 C 101 H 19 90 01/28/20 03:23 102 H 18 115/75 90 01/28/20 03:00 102 H 17 90 Pulse Ox Pulse Ox 01/28/20 11:56 91 01/28/20 11:44 01/28/20 11:31 01/28/20 11:00 78 L 93 01/28/20 09:00 01/28/20 08:23 01/28/20 08:00 01/28/20 07:23 01/28/20 07:00 01/28/20 06:45 01/28/20 06:23 01/28/20 06:00 01/28/20 05:23 01/28/20 05:00 01/28/20 04:23 01/28/20 04:00 01/28/20 03:23 01/28/20 03:00 Laboratory Results Cardiac Enzymes 01/27/20 01/28/20 01/28/20 Range/Units 20:14 04:06 08:02 AST 29 (15-37) U/L Troponin I 2.230 H* 2.540 H* 2.470 H* (0-0.045) ng/ml Coagulation 01/27/20 01/28/20 Range/Units 20:14 04:06 PT 41.8 H 41.0 H (9.0-12.0) Seconds APTT 35.1 H (21.0-31.0) Seconds CBC 01/27/20 01/28/20 Range/Units 20:14 04:06 WBC 9.29 8.16 (4.8-10.8) K/uL RBC 4.47 4.09 L (4.2-5.4) M/uL Hgb 13.1 11.9 L (12.0-16.0) g/dL Hct 40.7 37.2 (37-47) % Plt Count 210 177 (130-400) K/uL Neut # (Auto) 7.17 H 6.46 (1.4-6.5) K/uL Lymph # (Auto) 1.21 1.09 L (1.2-3.4) K/uL [place] # (Auto) 0.87 H 0.55 (0.11-0.59) K/uL Eos # (Auto) 0.02 0.03 (0-0.5) K/uL Baso # (Auto) 0.01 0.01 (0-0.2) K/uL Comprehensive Metabolic Panel 01/27/20 01/28/20 Range/Units 20:14 04:06 Sodium 137 139 (136-145) mmol/L Potassium 5.0 4.2 D (3.5-5.1) mmol/L Chloride 106 108 H (98-107) mmol/L Carbon Dioxide 24 25 (21-32) mmol/L BUN 70 H 70 H (7-18) mg/dl Creatinine 2.22 H 2.00 H (0.6-1.2) mg/dl Glucose 157 H 154 H (70-99) mg/dl Calcium 9.6 8.9 (8.5-10.1) mg/dl AST 29 (15-37) U/L ALT 23 (12-78) U/L Alkaline Phosphatase 98 (45-117) U/L Total Protein 7.6 (6.4-8.2) gm/dl Albumin 3.6 (3.4-5.0) gm/dl Intake and Output 01/27/20 01/28/20 01/28/20 22:59 06:59 14:59 Intake Total 10.417 / 153.917 143.5 / 153.917 789.000 / 789.000 Output Total 1000 / 1000 Balance 10.417 / -846.083 143.5 / -846.083 -211.000 / -211.000 Intake: IV 10.417 / 153.917 143.5 / 153.917 149.000 / 149.000 ALBUMIN 25% 12.5 gm In 50 ml @ 100 / 100 44.167 / 44.167 50 mls/hr IV BID SALLY Rx#: [id number] Cardizem 125 mg In D5 100 ml @ 10.417 / 53.917 43.5 / 53.917 104.833 / 104.833 10 MG/HR 10 mls/hr IV .[id number] SALLY Rx#:[id number] Oral 640 / 640 Output: Urine Amount (Catheter) 1000 / 1000 Lopez/Indwelling 1000 / 1000 # Bowel Movements 0 / 0 Other: Weight 65 kg 68.7 kg Weight Measurement Method Estimated by Patient Built in [facility]
[2020-01-28] MEDS ORDERED: metOLazone 5 MG TABLET PO ONE (16:37)
--- NOTE | 2020-01-28 17:05 | Communication Note ---
Date of Service: January 28, 2020 Given COVID-19 visitation restrictions, I attempted to reach patient's daughter , Imelda Marino by phone , but could not reach her. I was able to reach her second contact, her daughter, Ynes, and provided updates by phone.
--- NOTE | 2020-01-28 17:45 | Hospitalist Progress Note ---
Date of Service January 28, 2020 Assessment & Plan (1) Respiratory failure, acute and chronic: Acute on chronic hypoxic respiratory failure Acute exacerbation of chronic right ventricular failure Pulmonary hypertension --Echocardiogram noted, revealing severely dilated right ventricle, severely reduced function of the right ventricla --Started on BiPAP --Farm Management Teacher consulted Lasix increased to 80 mg every 8 hours Monitor renal function with diuresis --Fancy Wire Drawer also consulted Manager Of Merchandising consulted Possible NSTEMI Type II demand ischemia --Troponin levels 2.2, 2.5, 2.4 Rapid atrial flutter, hx PAF as per records --Continue Cardizem drip Acute renal failure on CKD stage IV Stable cardiorenal syndrome --Creatinine 1.5 now 2.0 --Continue to monitor while on Lasix Hypertension, BP on the lower side --Hold amlodipine hx PE on Coumadin --INR 4.2 Hold Coumadin PVD sp surgery DM 2 on oral meds, well controlled as of recent outpatient hemoglobin A1c of 6.6, September 2019 DVT prophylaxis. Coumadin INR goal between 2 and 3 Full code Disposition Pending Admission and Anticipated Discharge Date Admission Date: January 27, 2020 Subjective Follow-up for acute on chronic hypoxic respiratory failure, CHF exacerbation, pulmonary hypertension Seen resting in bed, on 15 L of nonrebreather, saturating 87%, occasionally 82% States that her breathing is slightly worse compared to yesterday Speaks in sentences, with mild tachypnea, mild accessory muscle use Denies chest pain, palpitations, dizziness No abdominal pain, nausea vomiting, fevers or chills No other symptoms Review of Systems Review of Systems: All systems reviewed & are unremarkable except as noted in Subjective Physical Exam Physical Exam: General- oriented x 3, not in distress, speaks in sentences with minimal effort and accessory muscle use Head- atraumatic Eyes- PERRL, EOMI, anicteric ENT- oropharynx clear Neck- supple, positive JVD, no adenopathy, no thyromegaly; carotids +2/2, no bruits appreciated Lungs-positive crackles bilateral mid to base No wheezing, good air entry bilaterally Heart-mild tachycardia, irregularly irregular rhythm; no murmur, no gallop, no rub appreciated Abdomen- normal bowel sounds, nondistended, soft, nontender, no masses or hepatosplenomegaly Extremities-mild lower leg edema, no calf tenderness; peripheral pulses intact Neuro- alert, oriented x 3; CN 2-12 grossly intact; motor 5/5 bilaterally;sensation 100% on all extremities; no other gross focal neurologic deficits Skin- warm & dry Results & Data Results & Data ([facility]) Vital Signs (Past 12 Hours) Vital Signs Temp Pulse Pulse Resp BP BP Pulse Ox 01/28/20 16:30 94 H 01/28/20 16:00 01/28/20 15:52 36.9 C 102 H 18 110/73 92 01/28/20 15:21 102 H 20 93 01/28/20 11:56 90 01/28/20 11:44 99 H 17 94 01/28/20 11:31 36.6 C 91 H 26 H 112/72 87 L 01/28/20 11:00 01/28/20 09:00 110 H 23 90 01/28/20 08:23 102 H 27 H 113/67 90 01/28/20 08:00 102 H 20 92 01/28/20 07:23 102 H 16 119/68 87 L 01/28/20 07:00 102 H 19 88 L 01/28/20 06:45 101 H 18 87 L 01/28/20 06:23 101 H 18 108/67 86 L 01/28/20 06:00 101 H 101 H 20 88 L Pulse Ox Pulse Ox 01/28/20 16:30 01/28/20 16:00 90 01/28/20 15:52 01/28/20 15:21 01/28/20 11:56 91 01/28/20 11:44 01/28/20 11:31 01/28/20 11:00 78 L 93 01/28/20 09:00 01/28/20 08:23 01/28/20 08:00 01/28/20 07:23 01/28/20 07:00 01/28/20 06:45 01/28/20 06:23 01/28/20 06:00
[2020-01-28] MEDS: FUROSEMIDE 80 MG in SYRINGE 0 ML IV SCH (17:51)
--- NOTE | 2020-01-28 17:56 | Consultation Report ---
DATE OF CONSULTATION: 01/28/2020 NEPHROLOGY CONSULTATION NOTE REASON FOR CONSULT: Acute renal failure on background CKD. HISTORY OF PRESENT ILLNESS: The patient is an 85-year-old female who has chronic history of respiratory failure secondary to pulmonary hypertension secondary to nocturnal hypoxemia -- on home O2, chronic diastolic congestive heart failure with preserved ejection fraction, atrial fibrillation, hypertension, peripheral vascular disease, history of PE -- on Coumadin, diabetes -- on oral medication, chronic kidney disease with a baseline creatinine of around 1.3, presented to the hospital with worsening shortness of breath as well as chest heaviness. She was found to have acute AK with AFib with rapid ventricular response. Her blood pressure was also noted to be low initially with significant tachycardia. At this time, she also has acute renal failure with a creatinine, which is higher than baseline at 2.0. She appears to be in congestive heart failure. She has received Lasix 60 mg IV twice daily, but her urine output has not been very brisk, in fact she has only had 1000 mL of urine so far. She has a Lopez catheter. The patient was able to give me a detailed account of her problem and in fact she recognizes me from our prior visit in the clinic. PAST MEDICAL HISTORY: As detailed in the HPI. PAST SURGICAL HISTORY: Carotid endarterectomy, cystoscopy. FAMILY HISTORY: Significant for ESRD. PERSONAL AND SOCIAL HISTORY: Nonsmoker, no alcohol. Lives by herself. ALLERGIES: Reviewed. HOME MEDICATIONS: List was reviewed in detail and is as per the reconciliation list. She does take Lasix, furosemide daily as well as multiple other medications. SOCIAL HISTORY: No smoking. She is a , lives alone. She has good support from her daughter. REVIEW OF SYSTEMS: As detailed in HPI. Positive review of system includes shortness of breath, feeling of fluid retention, chest heaviness, palpitation, poor appetite. Otherwise, 12 systems reviewed and negative. PHYSICAL EXAMINATION: GENERAL: Elderly white female who appears to be in [id number] respiratory distress. She was able to speak softly half sentences. She was awake, alert and oriented and even recognized me from our prior visits in the clinic. She is on BiPAP currently. HEENT: Mucous membranes moist. NECK: Supple. No jugular venous distention appreciated because of positioning. CHEST: Decreased breath sounds, basal crackles. CARDIOVASCULAR: Irregular, tachycardic, soft systolic murmur heard. ABDOMEN: Soft, nontender. EXTREMITIES: Show trace edema. NEUROLOGIC: Awake, alert, oriented, moving all 4 extremities. LABORATORY TESTS: Very elevated BNP of 32,000. BUN 70, creatinine 2. Sodium 139, potassium 4.2. Troponin is clearly positive at 2.54. Hemoglobin 11.9. CT abdomen and pelvis showed no evidence of bowel obstruction. Kidneys showed bilateral renal atrophy with a large renal cyst, bilateral pleural effusion, anasarca. Chest x-ray shows bilateral pleural effusion as well as pulmonary edema. ASSESSMENT AND PLAN: An 85-year-old female with significant comorbid disease including cardiac as well as pulmonary and now admitted with acute myocardial infarction and respiratory failure and was found to have acute renal failure on background chronic kidney disease. Acute renal failure: This is in the setting of significant illnesses at this time with respiratory failure, acute myocardial infarction. She is in congestive heart failure and needs to be diuresed as much as possible. Her current dose of Lasix is not causing enough diuresis. Given this, I do want to increase the dose to 80 IV q.8. It is totally possible and acceptable to have some rise in creatinine given the current situation of respiratory failure and acute myocardial infarction. Also add metolazone 5 mg now. Her renal prognosis is tied to her overall situation. No further workup is needed for acute renal failure. Obstructive uropathy has already been ruled out. Continue to monitor input and output and avoid nephrotoxic agents. MTDD
--- NOTE | 2020-01-28 19:54 | Pulmonary Consultation ---
Date of Consultation January 28, 2020 Assessment & Plan (1) Atrial flutter with rapid ventricular response: (2) Acute and chronic respiratory failure with hypoxia: Chest x-ray 01/28/2020 personally reviewed: Increased cardiac silhouette, bilateral hilar vascular congestion. Slight improvement compared to x-ray done before. --Acute on chronic hypoxic respiratory failure Multifactorial Patient has underlying pulmonary hypertension unsure if it is primary pulmonary hypertension or secondary Patient also came in with A. fib and RVR, chest x-ray shows bilateral haziness which is improved compared to presentation after diuresis Recommend continuing aggressive diuresis to keep negative balance. Continue with O2 supplementation to keep saturation 88-92% BiPAP nightly and as needed shortness of breath --Pulmonary hypertension Severe on the recent echo with right heart strain This has been going on since 2017 Patient never had a cardiac cath done to look at the right-sided pressures She says she is taking 2 heart medications. Medication list from home does show sildenafil 20 mg 3 times daily Plan: Continue with diuresis as tolerated to keep her negative balance. If the patient was taking sildenafil at home would continue with the dose. Although I am unsure if sildenafil is helping her pulmonary hypertension and that is usually used in type I and I am unsure of the type case. Please note the above document was generated using voice recognition software. It may contain grammatical, syntax or spelling errors.Any formal questions or concerns about the content, text or information contained within the body of this dictation should be directly addressed to the provider for clarification. (3) Pulmonary hypertension: History of Present Illness Attending Physician: Srinath Gregory MD History of Present Illness 85-year-old female past medical history of severe pulmonary hypertension on sildenafil 20 mg 3 times daily started by outpatient wink cutter operator. Patient does not have any cath done prior to starting her on sildenafil. Chronic hypoxic respiratory failure on 4-5 L at home. Pulmonary were consulted because of hypoxia. At the time of examination patient was on BiPAP 12/6 50% FiO2 saturating 93%. Not in any acute distress Patient did complain of high pressure went down to IPAP of 10. Patient states that she feels better on BiPAP. Shortness of breath is improved. She is urinating well. Denies any dizziness, no headache, no nausea, no vomiting, no chest pain. No dysuria, no diarrhea. Patient never smoked in her life Allergies Allergy/AdvReac Type Severity Reaction Status Date / Time Sulfa (Sulfonamide Allergy Unknown Unknown Verified 01/27/20 21:43 Antibiotics) Home Medications Medication Instructions Recorded Confirmed Type acetaminophen [Tylenol Arthritis 650 mg PO BID PRN 11/17/17 01/27/20 History Pain] albuterol sulfate 2.5 mg INHALATION Q4 PRN 11/17/17 01/27/20 History allopurinol 100 mg PO BID 11/17/17 01/27/20 History atorvastatin 10 mg PO QPM 11/17/17 01/27/20 History glucosamine-chondroitin [Osteo 1 tab PO DAILY 11/17/17 01/27/20 History Bi-Flex] metformin 500 mg PO BID 11/17/17 01/27/20 History nitroglycerin [Nitrostat] 0.4 mg SUBLINGUAL DIRECTED PRN 11/17/17 01/27/20 History Oxygen Home #1 ea 01/04/19 11/21/19 History albuterol sulfate 90 mcg/actuation 90 mcg INHALATION .INHALE 2 PUFFS 01/04/19 01/27/20 History aerosol inhaler EVERY #1 gm amlodipine 2.5 mg tablet 7.5 mg PO QAM #90 tab 08/24/19 01/27/20 Rx glipizide 5 mg tablet 2.5 mg PO BID tab 11/21/19 01/27/20 History sildenafil (pulm.hypertension) 20 See Rx Instructions .ROUTE 01/02/20 01/27/20 Rx mg tablet .COMPLEX #90 tablet aspirin [Aspirin Low Dose] 81 mg PO DAILY 01/27/20 01/27/20 History furosemide 40 mg PO UD 01/27/20 01/27/20 History warfarin [Jantoven] 7.5 mg PO UD 01/27/20 01/27/20 History Patient History Medical History (Updated 01/28/20 @ 19:49 by Keesha Phipps MD) Atrial fibrillation Carotid artery disease S/P ENDARTERECTOMY (R) 8-10YRS AGO Chronic back pain CKD (chronic kidney disease) stage 3, GFR 30-59 ml/min Congestive heart failure DIASTOLIC Diabetes mellitus, type 2 Gout Hyperlipidemia Hypertension Kidney stones On home oxygen therapy 4L DAYTIME 5 L HS NASAL CANNULA JASMIN (obstructive sleep apnea) Osteoarthritis Pulmonary embolism SPONTANEOUS, 7 YRS YRS AGO-ON COUMADIN-NO ISSUES SINCE Pulmonary hypertension SEVERE, COR PULMONALE Respiratory failure SOB (shortness of breath) Surgical History H/O carotid endarterectomy RIGHT H/O colonoscopy H/O cystoscopy 11/2017 History of appendectomy History of cystoscopy STENT INSERTION History of dental surgery Family History Other ESRD (end stage renal disease) Social History Smoking Status: Never smoker Second Hand Exposure: No; Hx Alcohol Use: No Hx Substance Use: No Preferred Language: Nigerien Communication Ability: Effective Visual Impairment: No Limitations Supervisor Waterworks Required: No Beliefs That Will Affect Care: None marital status: / Current Living Situation: Alone Feels Safe at Home: Yes Assistive Devices: Glasses and Oxygen - Continuous Review of Systems Review of Systems: All systems reviewed & are unremarkable except as noted in HPI & below Physical Exam Physical Exam: Constitutional: No acute distress HEENT: EOMI, PERRLA Respiratory system: Decreased air entry bilaterally, positive crackles bilateral lower lobes, no wheeze, no rhonchi CVS: S1-S2 positive, no murmurs or gallops, accentuated P2 Abdomen: Soft, nontender, nondistended, positive bowel sounds x4 Extremities: +2 pulses bilaterally radialis/ dorsalis pedis, no cyanosis, no edema Neuro: Awake alert oriented x3 Psych: Normal mood and affect G/U: Positive Lopez Skin: no rashes, warm and dry Lymphatic: no cervical or axillary lymphadenopathy Results & Data Results & Data ([facility]) Vital Signs (Past 12 Hours) Vital Signs Temp Pulse Pulse Resp BP BP Pulse Ox 01/28/20 16:30 94 H 01/28/20 16:00 01/28/20 15:52 36.9 C 102 H 18 110/73 92 01/28/20 15:21 102 H 20 93 01/28/20 11:56 90 01/28/20 11:44 99 H 17 94 01/28/20 11:31 36.6 C 91 H 26 H 112/72 87 L 01/28/20 11:00 01/28/20 09:00 110 H 23 90 01/28/20 08:23 102 H 27 H 113/67 90 01/28/20 08:00 102 H 20 92 Pulse Ox Pulse Ox 01/28/20 16:30 01/28/20 16:00 90 01/28/20 15:52 01/28/20 15:21 01/28/20 11:56 91 01/28/20 11:44 01/28/20 11:31 01/28/20 11:00 78 L 93 01/28/20 09:00 01/28/20 08:23 01/28/20 08:00 Laboratory Tests 01/28/20 08:02 NT-Pro-B Natriuret Pep [id number] H 01/28/20 04:06 PG Care Time/CCT Total # of Minutes Spent Total Time Spent with Patient: Total time spent is greater than 50% in coordination of care (as documented) at patient's floor/unit and/or counseling patient: Coding Level of Care Code 86377 Initial Inpt Care Lvl 3 Diagnoses Atrial flutter with rapid ventricular response I48.92 Acute and chronic respiratory failure with hypoxia J96.21 Pulmonary hypertension I27.20
[2020-01-28] MEDS: ATORVASTATIN 10 MG TAB PO SCH (20:43)
[2020-01-29] MEDS: FUROSEMIDE 80 MG in SYRINGE 0 ML IV SCH ×3 (01:14→17:09)
[2020-01-29 06:19] LABS: Basophils # (auto) 0.01 K/uL (0-0.2); Basophils % (auto) 0.1 %; Eosinophils # (auto) 0.07 K/uL (0-0.5); Eosinophils % (auto) 0.8 %; Hematocrit (blood only) 39.8 % (37-47); Hemoglobin 12.9 g/dL (12.0-16.0); Immature Granulocytes # (auto) 0.02 K/uL (0.00-0.02); Immature Granulocytes % (auto) 0.2 %; Lymphocytes # (auto) 1.04 K/uL (1.2-3.4); Lymphocytes % (auto) 12.1 %; Mean Corpuscular Hemoglobin 29.5 pg (25-34); Mean Corpuscular Hgb Conc 32.4 g/dL (32-36); Mean Corpuscular Volume 91.1 fL (80-100); Mean Platelet Volume 9.7 fL (7.4-10.4); Monocytes # (auto) 0.61 K/uL (0.11-0.59); Monocytes % (auto) 7.1 %; Neutrophils # (auto) 6.82 K/uL (1.4-6.5); Neutrophils % (auto) 79.7 %; Platelet Count 193 K/uL (130-400); RDW Coefficient of Variation 14.1 % (11.5-14.5); RDW Standard Deviation 46.6 fL (36.4-46.3); Red Blood Count 4.37 M/uL (4.2-5.4); White Blood Count 8.57 K/uL (4.8-10.8)
--- NOTE | 2020-01-29 06:22 | Electrocardiogram Report ---
Test Reason : Blood Pressure : / mmHG Vent. Rate : 145 BPM Atrial Rate : 208 BPM P-R Int : 000 ms QRS Dur : 098 ms QT Int : 300 ms P-R-T Axes : 000 133 -24 degrees QTc Int : 466 ms Atrial fibrillation with rapid ventricular response Low voltage QRS Left posterior fascicular block Possible Inferior infarct , age undetermined Cannot rule out Anterior infarct (cited on or before 18-NOV-2017) Abnormal ECG When compared with ECG of 19-NOV-2017 06:56, Atrial fibrillation has replaced Supraventricular tachycardia Questionable change in initial forces of Anteroseptal leads ST no longer depressed in Lateral leads Confirmed by Beck Flood ([id number]) on 01/29/2020 6:21:56 AM Referred By: REFERRED SELF Confirmed By:Beck Flood
[2020-01-29 06:42] LABS: INR 4.4 (0.9-1.1)
[2020-01-29 06:52] LABS: BUN Creatinine Ratio 32.2 (10-20); Calcium 9.3 mg/dl (8.5-10.1); Est GFR (African American) 23.9; Est GFR (Non-African American) 20.6; Potassium 3.6 mmol/L (3.5-5.1)
[2020-01-29] MEDS: dilTIAZem HCL 125 MG in DEXTROSE 5% 100 ML IV SCH ×3 (07:05→23:56)
[2020-01-29] MEDS: INSULIN ASPART 100 UNITS/ML 3 ML PEN SC SCH ×4 (07:46→20:56)
[2020-01-29] MEDS: allopurinoL 100 MG TAB PO SCH ×2 (08:16→21:09)
[2020-01-29] MEDS: METOPROLOL TARTRATE 25 MG TAB PO SCH ×2 (08:16→21:10)
[2020-01-29] MEDS: ASPIRIN 81 MG ECTAB PO SCH (08:16)
[2020-01-29] MEDS ORDERED: CONSULT PHARMACY PRN (08:49)
[2020-01-29] MEDS ORDERED: CEFEPIME 1,000 MG in SYRINGE 0 ML IV STA (08:51)
--- NOTE | 2020-01-29 12:59 | Pulmonology Progress Note ---
Date of Service January 29, 2020 Assessment & Plan (1) Atrial flutter with rapid ventricular response: (2) Acute and chronic respiratory failure with hypoxia: Chest x-ray 01/28/2020 personally reviewed: Increased cardiac silhouette, bilateral hilar vascular congestion. Slight improvement compared to x-ray done before. --Acute on chronic hypoxic respiratory failure Multifactorial Patient has underlying pulmonary hypertension unsure if it is primary pulmonary hypertension or secondary Patient also came in with A. fib and RVR, chest x-ray shows bilateral haziness which is improved compared to presentation after diuresis Recommend continuing aggressive diuresis to keep negative balance. Continue with O2 supplementation to keep saturation 88-92% BiPAP nightly and as needed shortness of breath --Pulmonary hypertension Severe on the recent echo with right heart strain This has been going on since 2017 Patient never had a cardiac cath done to look at the right-sided pressures She says she is taking 2 heart medications. Medication list from home does show sildenafil 20 mg 3 times daily Plan: In/out: -1.7 L, urine output 3450 Continue with diuresis as tolerated to keep her negative balance. If the patient was taking sildenafil at home would continue with the dose. Although I am unsure if sildenafil is helping her pulmonary hypertension and that is usually used in type I and I am unsure of the type case. Patient is on Nitropaste as a as needed medication. Usually PDE-5 inhibitor should not be used with nitrates. If there is no indication to use nitrates. I would recommend to restart sildenafil to see if there is any benefit as she was already taking it at home. Importance of using BiPAP when she is in respiratory distress explained to the patient. Please note the above document was generated using voice recognition software. It may contain grammatical, syntax or spelling errors.Any formal questions or concerns about the content, text or information contained within the body of this dictation should be directly addressed to the provider for clarification. (3) Pulmonary hypertension: Admission and Anticipated Discharge Date Admission Date: January 27, 2020 Subjective Patient seen and examined at bedside. Patient was on facemask 13 L at the time of examination Saturating 90%. Not in acute distress. Patient stated that she woke up startled and confused given she was on BiPAP. She denies any headache. States that her shortness of breath is improved. She is worried skeptical skeptical regarding using BiPAP again. Importance of using BiPAP explained to the patient and that it would be a bridge to intubation if she gets worse. Review of Systems Review of Systems: All systems reviewed & are unremarkable except as noted in Subjective Physical Exam Physical Exam: Constitutional: No acute distress HEENT: EOMI, PERRLA Respiratory system: Decreased air entry bilaterally, positive crackles bilateral lower lobes, no wheeze, no rhonchi CVS: S1-S2 positive, no murmurs or gallops, accentuated P2 Abdomen: Soft, nontender, nondistended, positive bowel sounds x4 Extremities: +2 pulses bilaterally radialis/ dorsalis pedis, no cyanosis, no dominick ma Neuro: Awake alert oriented x3 Psych: Normal mood and affect G/U: Positive Lopez Skin: no rashes, warm and dry Lymphatic: no cervical or axillary lymphadenopathy Results & Data Results & Data ([facility]) Vital Signs (Past 12 Hours) Vital Signs Temp Pulse Pulse Resp BP Pulse Ox 01/29/20 11:56 36.8 C 98 H 19 107/66 90 01/29/20 08:09 36.8 C 101 H 18 116/69 90 01/29/20 08:00 100 H 01/29/20 03:10 101 H 19 93 01/29/20 02:44 36.4 C L 102 H 16 118/69 93 Laboratory Tests 01/28/20 08:02 NT-Pro-B Natriuret Pep [id number] H 01/29/20 06:05 01/29/20 06:05 PG Care Time/CCT Total # of Minutes Spent Total Time Spent with Patient: Total time spent is greater than 50% in coordination of care (as documented) at patient's floor/unit and/or counseling patient: Coding Level of Care Code 90466 Subseq Hosp Care Lvl 3 Diagnoses Atrial flutter with rapid ventricular response I48.92 Acute and chronic respiratory failure with hypoxia J96.21 Pulmonary hypertension I27.20
--- NOTE | 2020-01-29 14:04 | Hospitalist Progress Note ---
Date of Service January 29, 2020 Assessment & Plan (1) Respiratory failure, acute and chronic: Acute on chronic hypoxic respiratory failure Acute exacerbation of chronic right ventricular failure Pulmonary hypertension --Echocardiogram noted, revealing severely dilated right ventricle, severely reduced function of the right ventricla --placed on Bipap--> transitioned to Oxymask 5 L --Gelatin Plant Supervisor consulted Lasix increased to 80 mg every 8 hours--> diuresed well, negative 1.7 L so far creatinine stable at 2.1 --Waiter/Waitress Economy Class also consulted Mail Agent consulted Possible NSTEMI Type II demand ischemia --Troponin levels 2.2, 2.5, 2.4 Rapid atrial flutter, hx PAF as per records --rate controlled Continue Cardizem drip Acute renal failure on CKD stage IV Stable cardiorenal syndrome --Creatinine 1.5 now 2.0--> 2.1 --Continue to monitor while on Lasix Hypertension, BP on the lower side --Hold amlodipine hx PE on Coumadin --INR 4.4 Hold Coumadin PVD sp surgery DM 2 on oral meds, well controlled as of recent outpatient hemoglobin A1c of 6.6, September 2019 DVT prophylaxis. INR 4.4 Full code Disposition lives at home will need PT/OT Admission and Anticipated Discharge Date Admission Date: January 27, 2020 Subjective ff up for acute on chronic respiratory failure, acute on chronic CHF exacerbation, pulmonary HTN, etc seen resting in bed, comfortable, sitting up on 5 L oxymask 89% via pulse oximetry states breathing has improved compared to yesterday denies chest pain, palpitations, dizziness no abdominal pain, nausea/vomiting, fever/chills no other symptoms Review of Systems Review of Systems: All systems reviewed & are unremarkable except as noted in Subjective Physical Exam Physical Exam: General- oriented x 3, not in distress, speaks in sentences with no effort or accessory muscle use Eyes- anicteric Neck- no JVD Lungs- mild crackles at the bases, no wheezing Heart- normal rate, irregularly irregular rhythm; no murmurs Abdomen- normal bowel sounds, nondistended, soft, nontender Extremities- trace pretibial edema, no calf tenderness Neuro- alert, oriented x 3; no gross focal neurologic deficits Skin- warm & dry Results & Data Results & Data ([facility]) Vital Signs (Past 12 Hours) Vital Signs Temp Pulse Pulse Resp BP Pulse Ox 01/29/20 11:56 36.8 C 98 H 19 107/66 90 01/29/20 08:09 36.8 C 101 H 18 116/69 90 01/29/20 08:00 100 H 01/29/20 03:10 101 H 19 93 01/29/20 02:44 36.4 C L 102 H 16 118/69 93
--- NOTE | 2020-01-29 14:56 | Cardiology Progress Note ---
Date of Service January 29, 2020 Assessment & Plan (1) Acute and chronic respiratory failure with hypoxia: (2) Atrial fibrillation: (3) Pulmonary hypertension: Patient with longstanding cor pulmonale physiology, baseline COPD on supplementary oxygen, remote saddle pulmonary embolism, RV pressure/volume overload pattern noted on echocardiogram this admission, 01/28/2020, as well as on prior echo dating back to 2017. New onset atrial fibrillation with rapid ventricular response noted. Increase metoprolol from 12.5 mg twice daily to 25 mg twice daily. Continue high-dose IV diltiazem for now. Chronic Coumadin on hold for INR 4.4. Troponin 01/28/2020 2.4, creatinine today 2.1. Continue diuretics. Nephrology input appreciated, furosemide 80 mg every 8 hours. Agree with cefepime. Admission and Anticipated Discharge Date Admission Date: January 27, 2020 Subjective Patient seen in follow-up. She is still requiring high flow supplemental oxygen, 15 L/min by oxime mask, as compared to BiPAP yesterday, but she appears much more comfortable. Telemetry reveals ongoing atrial fibrillation, rate currently 99 bpm, on diltiazem 15 mg/h. Physical Exam Physical Exam: Temp Pulse Resp BP Pulse Ox 36.8 C 98 H 19 107/66 90 01/29/20 11:56 01/29/20 11:56 01/29/20 11:56 01/29/20 11:56 01/29/20 11:56 Constitutional: Frail, chronically ill in appearance, without acute distress Respiratory: Mildly decreased breath sounds bilaterally at the bases Cardiovascular: Rate/Rhythm: + tachycardic and + irregularly irregular Heart Sounds: + murmur (1/6 systolic murmur) Gastrointestinal (Abdomen): normal bowel sounds, soft, nontender, no hepatosplenomegaly Neurologic: PERRL, EOMI, accommodation nl, no face palsy, no dysarthria Results & Data ([facility]) Vital Signs (Past 12 Hours) Vital Signs Temp Pulse Pulse Resp BP Pulse Ox 01/29/20 11:56 36.8 C 98 H 19 107/66 90 01/29/20 08:09 36.8 C 101 H 18 116/69 90 01/29/20 08:00 100 H 01/29/20 03:10 101 H 19 93 Laboratory Results Coagulation 01/29/20 Range/Units 06:05 PT 43.0 H (9.0-12.0) Seconds Lipids 01/29/20 Range/Units 06:05 Triglycerides 81 (0-150) mg/dl Cholesterol 113 (0-200) mg/dl HDL Cholesterol 42 mg/dl Cholesterol/HDL Ratio 3 CBC 01/29/20 Range/Units 06:05 WBC 8.57 (4.8-10.8) K/uL RBC 4.37 (4.2-5.4) M/uL Hgb 12.9 (12.0-16.0) g/dL Hct 39.8 (37-47) % Plt Count 193 (130-400) K/uL Neut # (Auto) 6.82 H (1.4-6.5) K/uL Lymph # (Auto) 1.04 L (1.2-3.4) K/uL [place] # (Auto) 0.61 H (0.11-0.59) K/uL Eos # (Auto) 0.07 (0-0.5) K/uL Baso # (Auto) 0.01 (0-0.2) K/uL Comprehensive Metabolic Panel 01/29/20 Range/Units 06:05 Sodium 139 (136-145) mmol/L Potassium 3.6 (3.5-5.1) mmol/L Chloride 104 (98-107) mmol/L Carbon Dioxide 26 (21-32) mmol/L BUN 68 H (7-18) mg/dl Creatinine 2.10 H (0.6-1.2) mg/dl Glucose 164 H (70-99) mg/dl Calcium 9.3 (8.5-10.1) mg/dl Intake and Output 01/28/20 01/29/20 01/29/20 22:59 06:59 14:59 Intake Total 214.50 / 1228.500 225 / 0929.512 4902 / 1275 Output Total 2650 / 3650 800 / 800 Balance 214.50 / -2421.500 -2425 / -2421.500 475 / 475 Intake: IV 214.50 / 488.500 125 / 488.500 Cardizem 125 mg In D5 100 ml @ 214.50 / 373.25 125 / 373.25 15 MG/HR 15 mls/hr IV .[id number] [facility] Rx#:[id number] Oral 100 / 740 1275 / 1275 Output: Urine Amount (Catheter) 2650 / 3650 800 / 800 Lopez/Indwelling 2650 / 3650 800 / 800 Other: Other Intake Source Patient has taken sips of water. Weight 68.1 kg Weight Measurement Method Built in [facility]
--- NOTE | 2020-01-29 16:02 | Progress Notes ---
DATE: 01/29/2020 NEPHROLOGY PROGRESS NOTE SUBJECTIVE: Overnight, the patient feels better than yesterday. She does seem to be stronger and is speaking more forcefully. Labs are stable. She is making lots of urine. OBJECTIVE: VITAL SIGNS: Blood pressure 107/66, pulse rate 98, respiratory rate 19, temperature 36.8, on OxyMask 15 liters per minute. CHEST: Bilateral decreased breath sounds, occasional crackles. CARDIOVASCULAR: S1, S2, regular. Soft systolic murmur heard. ABDOMEN: Soft, nontender. EXTREMITIES: Show edema 1+. LABORATORY TESTS: Sodium 139, potassium 3.6, BUN 68, creatinine 2.10. Creatinine has been stable for the last 2 days now. Hemoglobin 12.9. ASSESSMENT: An 85-year-old female with significant comorbidities including cardiac as well as pulmonary and now admitted with acute myocardial infarction and respiratory failure and was found to have acute renal failure on background chronic kidney disease. Acute renal failure: This is in the setting of significant illness at this time with respiratory failure, acute myocardial infarction with background chronic kidney disease stage III. Her more recent baseline creatinine was around 1.3-1.5. PLAN AND RECOMMENDATIONS: 1. Continue Lasix 80 IV q.8. She is making good bit of urine with this. 2. Daily labs. 3. I did explain to the patient that it will take some time before her renal function is stabilized to her previous level. There is also a chance that it may never get back to the previous baseline and she will continue to have a higher baseline creatinine from now on.
[2020-01-29] MEDS: ATORVASTATIN 10 MG TAB PO SCH (21:10)
[2020-01-30] MEDS: FUROSEMIDE 80 MG in SYRINGE 0 ML IV SCH ×3 (02:50→17:12)
[2020-01-30 06:54] LABS: Basophils # (auto) 0.01 K/uL (0-0.2); Basophils % (auto) 0.1 %; Eosinophils # (auto) 0.05 K/uL (0-0.5); Eosinophils % (auto) 0.7 %; Hematocrit (blood only) 40.5 % (37-47); Hemoglobin 13.1 g/dL (12.0-16.0); Immature Granulocytes # (auto) 0.01 K/uL (0.00-0.02); Immature Granulocytes % (auto) 0.1 %; Lymphocytes # (auto) 1.03 K/uL (1.2-3.4); Lymphocytes % (auto) 14.9 %; Mean Corpuscular Hemoglobin 29.5 pg (25-34); Mean Corpuscular Hgb Conc 32.3 g/dL (32-36); Mean Corpuscular Volume 91.2 fL (80-100); Mean Platelet Volume 9.5 fL (7.4-10.4); Monocytes # (auto) 0.52 K/uL (0.11-0.59); Monocytes % (auto) 7.5 %; Neutrophils # (auto) 5.31 K/uL (1.4-6.5); Neutrophils % (auto) 76.7 %; Platelet Count 211 K/uL (130-400); RDW Coefficient of Variation 14.1 % (11.5-14.5); Red Blood Count 4.44 M/uL (4.2-5.4); White Blood Count 6.93 K/uL (4.8-10.8)
[2020-01-30 07:24] LABS: INR 4.6 (0.9-1.1); Prothrombin Time 44.7 Seconds (9.0-12.0)
[2020-01-30 07:33] LABS: BUN Creatinine Ratio 28.5 (10-20); Calcium 9.5 mg/dl (8.5-10.1); Creatinine Clr Calc Pharmacy 14.9 ml/min; Est GFR (African American) 19.3; Est GFR (Non-African American) 16.6; Potassium 2.8 mmol/L (3.5-5.1)
[2020-01-30] MEDS: INSULIN ASPART 100 UNITS/ML 3 ML PEN SC SCH ×4 (07:52→21:25)
[2020-01-30] MEDS: METOPROLOL TARTRATE 25 MG TAB PO SCH ×2 (08:18→19:42)
[2020-01-30] MEDS: ASPIRIN 81 MG ECTAB PO SCH (08:18)
[2020-01-30] MEDS: allopurinoL 100 MG TAB PO SCH ×2 (08:19→19:42)
[2020-01-30] MEDS ORDERED: CEFEPIME 500 MG in SYRINGE 0 ML IV SCH (09:00)
[2020-01-30] MEDS: dilTIAZem HCL 125 MG in DEXTROSE 5% 100 ML IV SCH (09:18)
[2020-01-30] MEDS ORDERED: POTASSIUM CHLORIDE CRTAB 20 MEQ TABCR PO STA ×3 (10:18→21:14)
[2020-01-30] MEDS ORDERED: ERTAPENEM CONSULT ACTIVE PRN (10:47)
--- NOTE | 2020-01-30 11:57 | Pulmonology Progress Note ---
Date of Service January 30, 2020 Assessment & Plan (1) Acute and chronic respiratory failure with hypoxia: Impression: 85-year-old female with history of pulmonary hypertension incompletely defined on sildenafil as an outpatient now admitted with atrial fibrillation with rapid ventricular response and associated acute on chronic hypoxemic respiratory failure. Recommendations: 1. Hypoxemia: Unclear etiology. This appears to be acting like shunt physiology and is certainly possible the patient may have a PFO or ASD with right to left shunting contributing to her hypoxemia. Could consider repeating her echocardiogram with bubble study although I doubt it would international exchange coordinator in the long-term. She appears to be responding favorably for now and would continue current interventions including diuresis as tolerated by kidney function. Would attempt to wean off of BiPAP as tolerated 2. Pulmonary hypertension: Suspect this is WHO class II and III disease. Unclear indication for sildenafil in the outpatient setting but apparently this has been continued. We will discontinue her nitrates and when she has been free of those for over 24 hours can consider restarting sildenafil. If her right ventricular function continues to be problematic and causes cardiorenal syndrome, could consider more aggressive vasodilators although these would likely require the patient being transferred to a tertiary care center. Agree with diuresis as tolerated by kidney function 3. Remote history of PE: Continue anticoagulation. We will continue to follow. (2) Pulmonary hypertension: (3) Atrial flutter with rapid ventricular response: Admission and Anticipated Discharge Date Admission Date: January 27, 2020 Subjective Patient seen and examined. EMR reviewed. Discussed with my colleague. The patient remains on BiPAP 02/11 with an FiO2 of about 70%. Her oxygen saturations are about 94% on this. She is not complaining of any significant respiratory compromise or shortness of breath. Review of Systems Review of Systems: All systems reviewed & are unremarkable except as noted in HPI & below Physical Exam Physical Exam: General- oriented x 3, not in distress, speaks in sentences with no effort or accessory muscle use Eyes- anicteric Neck- no JVD Lungs- mild crackles at the bases, no wheezing Heart- normal rate, irregularly irregular rhythm; no murmurs Abdomen- normal bowel sounds, nondistended, soft, nontender Extremities- trace pretibial edema, no calf tenderness Neuro- alert, oriented x 3; no gross focal neurologic deficits Skin- warm & dry Results & Data Results & Data ([facility]) Vital Signs (Past 12 Hours) Vital Signs Temp Pulse Pulse Resp BP Pulse Ox Pulse Ox 01/30/20 08:11 36.5 C 95 H 19 117/65 89 L 01/30/20 08:00 95 H 01/30/20 03:55 36.7 C 95 H 24 113/68 89 L 01/30/20 00:00 95 H 93 I/O: -400 mL Laboratory Results 01/30/20 06:44 01/30/20 06:44 Medications Administered Chest x-ray from 01/27 was independently reviewed with trace bilateral pleural effusions and some perihilar opacities with significant cardiomegaly PG Care Time/CCT Total # of Minutes Spent Total Time Spent with Patient: Total time spent is greater than 50% in coor dination of care (as documented) at patient's floor/unit and/or counseling patient: Coding Level of Care Code 42523 Subseq Hosp Care Lvl 3 Diagnoses Acute and chronic respiratory failure with hypoxia J96.21 Pulmonary hypertension I27.20 Atrial flutter with rapid ventricular response I48.92
[2020-01-30] MEDS: ERTAPENEM SODIUM 500 MG in SODIUM CHLORIDE 0.9% 50 ML IV SCH (12:37)
--- NOTE | 2020-01-30 13:08 | Cardiology Progress Note ---
Date of Service January 30, 2020 Assessment & Plan (1) Acute and chronic respiratory failure with hypoxia: (2) Atrial flutter with rapid ventricular response: (3) Acute on chronic right heart failure: (4) Pulmonary hypertension: (5) UTI (urinary tract infection): (6) Acute kidney injury superimposed on chronic kidney disease: 85-year-old patient remains in atrial flutter with fair rate control. Add oral diltiazem 30 mg 3 times daily and wean intravenous Cardizem infusion as vanessa ated. Continue metoprolol as previously ordered. INR remains supratherapeutic today. Hold Coumadin. Repeat INR in a.m. Creatinine trending upward. Reduce Lasix to 80 mg twice daily. Follow daily weight, fluid balance, GFR, and electrolytes. Replace potassium today as indicated. Supplemental oxygen, BiPAP, antibiotics as per internal medicine/pulmonary service. Admission and Anticipated Discharge Date Admission Date: January 27, 2020 Subjective Patient seen and examined at the bedside. Denies chest pain, palpitations, or shortness of breath at rest. Intravenous diltiazem infusing at 15 mg/h. Metoprolol titrated to 25 mg twice daily on admission. Telemetry reveals probable atrial flutter with a ventricular rate of 90 to 95 bpm. Fluid balance -285 cc overnight. Remains on high-dose furosemide per recommendations of nephrology with creatinine trending upward today. Urine culture positive for E. coli, ESBL. Review of Systems Review of Systems: All systems reviewed & are unremarkable except as noted in HPI & below Physical Exam Constitutional: + ill appearing and + thin Respiratory: no respiratory distress, no labored breathing and no retractions Auscultation: + diminished lung sounds (Bilateral) and + crackles (Left base); no rhonchi and no wheezes Cardiovascular: Rate/Rhythm: regular rate Heart Sounds: normal S1 and normal S2; no murmur Vessels: radial pulses present; no JVD Extremities: no edema Gastrointestinal (Abdomen): Inspection/Auscultation: abdomen normal to inspection and normal bowel sounds; abdomen not distended Percussion/Palpation: abdomen soft; abdomen nontender, no guarding and abdomen not rigid Skin: no rashes, warm and dry Neurologic: moves all extremities Motor/Sensory: no tremor Psychiatric: A+Ox3, euthymic affect Results & Data ([facility]) Vital Signs (Past 12 Hours) Vital Signs Temp Pulse Pulse Resp BP Pulse Ox 11/23/20 11:58 36.8 C 92 H 20 110/69 91 01/30/20 08:11 36.5 C 95 H 19 117/65 89 L 01/30/20 08:00 95 H 01/30/20 03:55 36.7 C 95 H 24 113/68 89 L
[2020-01-30] MEDS: dilTIAZem HCL 30 MG TAB PO SCH ×2 (14:13→19:42)
[2020-01-30 17:22] LABS: BUN Creatinine Ratio 27.8 (10-20); Calcium 9.3 mg/dl (8.5-10.1); Creatinine Clr Calc Pharmacy 14.4 ml/min; Est GFR (African American) 18.5; Est GFR (Non-African American) 15.9; Potassium 3.4 mmol/L (3.5-5.1)
[2020-01-30] MEDS: ATORVASTATIN 10 MG TAB PO SCH (19:42)
--- NOTE | 2020-01-30 21:04 | Hospitalist Progress Note ---
Date of Service January 30, 2020 Assessment & Plan (1) Respiratory failure, acute and chronic: Acute on chronic hypoxic respiratory failure Acute exacerbation of chronic right ventricular failure Pulmonary hypertension --Echocardiogram noted, revealing severely dilated right ventricle, severely reduced function of the right ventricla --placed on Bipap --Seal Delivery Vehicle Team Technician consulted Lasix increased to 80 mg every 8 hours--> diuresed well --Placed back on BiPAP Creatinine elevated at 2.6 --Reduce Lasix to 80 mg every 12 hours will likely resume sildenafil tomorrow --Roll Edge Machine Operator also consulted Physician Asst consulted --Monitor creatinine ESBL E. coli UTI --Transition to ertapenem day #1 Continue to monitor Possible NSTEMI Type II demand ischemia --Troponin levels 2.2, 2.5, 2.4 Rapid atrial flutter, hx PAF as per records --rate controlled P.o. Cardizem ordered, wean off Cardizem drip Acute renal failure on CKD stage IV Stable cardiorenal syndrome --Creatinine 1.5 now 2.0--> 2.1--> 2.6 --Continue to monitor while on Lasix Hypertension, BP on the lower side --Hold amlodipine hx PE on Coumadin --INR 4.6 Hold Coumadin PVD sp surgery DM 2 on oral meds, well controlled as of recent outpatient hemoglobin A1c of 6.6, September 2019 DVT prophylaxis. INR 4.4 Full code Disposition lives at home will need PT/OT Admission and Anticipated Discharge Date Admission Date: January 27, 2020 Subjective Follow-up for acute on chronic hypoxic respiratory failure, acute CHF exacerbation, pulmonary hypertension Seen resting in bed, sitting up, on BiPAP Patient is awake and alert, oriented x3 Not in distress, speaks in sentences, conversant States her breathing continues to improve Denies cough, fevers or chills, sputum production No chest pain, palpitations, dizziness, nausea No other symptoms Review of Systems Review of Systems: All systems reviewed & are unremarkable except as noted in Subjective Physical Exam Physical Exam: General- oriented x 3, not in distress, speaks in sentences with no effort or accessory muscle use Eyes- anicteric Neck- no JVD Lungs-minimal rales at the bases, no wheezing Heart- normal rate, irregularly irregular rhythm; no murmurs Abdomen- normal bowel sounds, nondistended, soft, nontender Extremities- no pretibial edema, no calf tenderness Neuro- alert, oriented x 3; no gross focal neurologic deficits Skin- warm & dry Results & Data Results & Data ([facility]) Vital Signs (Past 12 Hours) Vital Signs Temp Pulse Pulse Resp BP Pulse Ox 01/30/20 19:19 95 H 17 92 01/30/20 19:00 36.6 C 96 H 18 106/67 91 01/30/20 15:31 84 23 90 01/30/20 15:00 36.7 C 94 H 20 93/40 L 92 01/30/20 11:58 36.8 C 92 H 20 110/69 91 Laboratory Results Laboratory Results - last 24 hr 01/30/20 01/30/20 01/30/20 06:44 06:44 06:44 WBC 6.93 RBC 4.44 Hgb 13.1 Hct 40.5 MCV 91.2 MCH 29.5 MCHC 32.3 RDW Std Deviation 47.0 H RDW Coeff of Bravo 14.1 Plt Count 211 MPV 9.5 Immature Gran % (Auto) 0.1 Neut % (Auto) 76.7 Lymph % (Auto) 14.9 [place] % (Auto) 7.5 Eos % (Auto) 0.7 Baso % (Auto) 0.1 Neut # (Auto) 5.31 Lymph # (Auto) 1.03 L [place] # (Auto) 0.52 Eos # (Auto) 0.05 Baso # (Auto) 0.01 Immature Gran # (Auto) 0.01 PT 44.7 H INR 4.6 H Sodium 137 Potassium 2.8 L D Chloride 99 Carbon Dioxide 29 Anion Gap 9.0 BUN 72 H Creatinine 2.51 H D Est Cr Clr Drug Dosing 14.9 Est GFR ( Amer) 19.3 Est GFR (Non-Af Amer) 16.6 BUN/Creatinine Ratio 28.5 H Glucose 177 H POC Glucose Calcium 9.5 01/30/20 01/30/20 01/30/20 07:45 11:40 16:13 WBC RBC Hgb Hct MCV MCH MCHC RDW Std Deviation RDW Coeff of Bravo Plt Count MPV Immature Gran % (Auto) Neut % (Auto) Lymph % (Auto) [place] % (Auto) Eos % (Auto) Baso % (Auto) Neut # (Auto) Lymph # (Auto) [place] # (Auto) Eos # (Auto) Baso # (Auto) Immature Gran # (Auto) PT INR Sodium Potassium Chloride Carbon Dioxide Anion Gap BUN Creatinine Est Cr Clr Drug Dosing Est GFR ( Amer) Est GFR (Non-Af Amer) BUN/Creatinine Ratio Glucose POC Glucose 167 H 209 H 248 H Calcium 01/30/20 01/30/20 16:43 19:40 WBC RBC Hgb Hct MCV MCH MCHC RDW Std Deviation RDW Coeff of Bravo Plt Count MPV Immature Gran % (Auto) Neut % (Auto) Lymph % (Auto) [place] % (Auto) Eos % (Auto) Baso % (Auto) Neut # (Auto) Lymph # (Auto) [place] # (Auto) Eos # (Auto) Baso # (Auto) Immature Gran # (Auto) PT INR Sodium 136 Potassium 3.4 L D Chloride 100 Carbon Dioxide 27 Anion Gap 9.0 BUN 72 H Creatinine 2.60 H Est Cr Clr Drug Dosing 14.4 Est GFR ( Amer) 18.5 Est GFR (Non-Af Amer) 15.9 BUN/Creatinine Ratio 27.8 H Glucose 268 H POC Glucose 273 H Calcium 9.3
[2020-01-30] MEDS ORDERED: PHARMACY GLYCEMIC MGMT CONSULT PRN (21:25)
[2020-01-30] MEDS ORDERED: INSULIN GLARGINE SOLOSTAR 100 UNITS/ML 3 ML PEN SC STA (21:33)
--- NOTE | 2020-01-30 21:42 | Nephrology Progress Note ---
Date of Service January 30, 2020 Assessment & Plan (1) Acute kidney injury superimposed on chronic kidney disease: baseline 1.7 creat and uptending today from 2.1 yesterday to 2.6 this am -agree w/ lower lasix dosing -gave more K and rechecked labs as above >>note that hospitalist has already given more K and will recheck in am -daily bmp Present on Admission?: Yes (2) Respiratory failure, acute and chronic: on bipap or oxymask; cont to monitor; 2.4L negative on admission so far Present on Admission?: Yes Admission and Anticipated Discharge Date Admission Date: January 27, 2020 Subjective seen on rounds today at 1610; sleeping soundly; wakens briefly but does not really interact w/ me; about 90 min earlier I'd observed her awake and manipula ting buttons on bedside med equipment; K repleted; cardiology lowered lasix frequency dose Review of Systems Review of Systems: Unobtainable due to cognitive status Physical Exam Constitutional: well developed and + frail appearing; no acute distress on bipap Eyes: EOM intact bilaterally ENMT: Ears: no external ear abnormality Nose: no external nose abnormality Mouth: + dry oral mucous membranes Neck: no nuchal rigidity Respiratory: normal respiratory effort Auscultation: + diminished lung sounds Cardiovascular: Rate/Rhythm: regular rhythm and + tachycardic Extremities: no edema Gastrointestinal (Abdomen): Inspection/Auscultation: normal bowel sounds Percussion/Palpation: abdomen soft; abdomen nontender Musculoskeletal: Extremities: strength 5/5 throughout Skin: no rashes, warm and dry Neurologic: pearson, wakens briefly then drifts to sleep again Genitourinary: villalobos w/ ample yellow urine Results & Data ([facility]) Vital Signs (Past 12 Hours) Vital Signs Temp Pulse Pulse Resp BP Pulse Ox 01/30/20 19:19 95 H 17 92 01/30/20 19:00 36.6 C 96 H 18 106/67 91 01/30/20 15:31 84 23 90 01/30/20 15:00 36.7 C 94 H 20 93/40 L 92 01/30/20 11:58 36.8 C 92 H 20 110/69 91 Laboratory Results 01/30/20 06:44 01/30/20 16:43
--- NOTE | 2020-01-31 06:17 | Electrocardiogram Report ---
Test Reason : Blood Pressure : / mmHG Vent. Rate : 093 BPM Atrial Rate : 093 BPM P-R Int : 272 ms QRS Dur : 118 ms QT Int : 408 ms P-R-T Axes : 086 110 008 degrees QTc Int : 507 ms Sinus rhythm with 1st degree A-V block Right axis deviation Minimal voltage criteria for LVH, may be normal variant Cannot rule out Anterior infarct (cited on or before 18-NOV-2017) T wave abnormality, consider inferolateral ischemia Prolonged QT Abnormal ECG When compared with ECG of 27-JAN-2020 20:11, Sinus rhythm has replaced Atrial fibrillation Vent. rate has decreased BY 52 BPM QRS duration has increased Nonspecific T wave abnormality, worse in Lateral leads Confirmed by Beck Flood ([id number] on 01/31/2020 6:16:59 AM Referred By: REFERRED SELF Confirmed By:Beck Flood
[2020-01-31 07:23] LABS: Basophils # (auto) 0.02 K/uL (0-0.2); Basophils % (auto) 0.3 %; Eosinophils # (auto) 0.18 K/uL (0-0.5); Eosinophils % (auto) 2.5 %; Hematocrit (blood only) 41.3 % (37-47); Hemoglobin 13.1 g/dL (12.0-16.0); Immature Granulocytes # (auto) 0.01 K/uL (0.00-0.02); Immature Granulocytes % (auto) 0.1 %; Lymphocytes # (auto) 1.29 K/uL (1.2-3.4); Lymphocytes % (auto) 17.8 %; Mean Corpuscular Hgb Conc 31.7 g/dL (32-36); Mean Corpuscular Volume 91.6 fL (80-100); Mean Platelet Volume 9.8 fL (7.4-10.4); Monocytes % (auto) 8.3 %; Neutrophils # (auto) 5.15 K/uL (1.4-6.5); Platelet Count 224 K/uL (130-400); RDW Coefficient of Variation 13.9 % (11.5-14.5); RDW Standard Deviation 46.5 fL (36.4-46.3); Red Blood Count 4.51 M/uL (4.2-5.4); White Blood Count 7.25 K/uL (4.8-10.8)
[2020-01-31 07:49] LABS: INR 4.1 (0.9-1.1); Prothrombin Time 40.3 Seconds (9.0-12.0)
[2020-01-31 07:55] LABS: BUN Creatinine Ratio 30.5 (10-20); Calcium 9.3 mg/dl (8.5-10.1); Creatinine Clr Calc Pharmacy 15.6 ml/min; Est GFR (African American) 20.4; Est GFR (Non-African American) 17.6; Potassium 2.9 mmol/L (3.5-5.1)
--- NOTE | 2020-01-31 09:09 | Pharmacy Report ---
Pharmacy Glycemic Short Note 2 - Date of Service January 31, 2020 - Glycemic Short BSG Results (Last 24 hours): 01/30/20 01/30/20 01/30/20 11:40 16:13 16:43 Glucose 268 H POC Glucose 209 H 248 H 01/30/20 01/31/20 01/31/20 19:40 07:01 07:57 Glucose 117 H POC Glucose 273 H 122 H OUTPATIENT ANTIDIABETIC REGIMEN: * Metformin 500 mg PO BIDM * Glipizide 2.5 mg PO BID * HbA1c: 6.5% (01/27/20) ASSESSMENT: * BH is an 85 year old female admitted on 01/27 for acute respiratory failure * This is acute on chronic secondary to pulmonary hypertension/decompensated heart failure * BSGs have been uncontrolled during this admission, yesterday's BSGs of 167, 209, 248, and 273 mg/dL * Pharmacy was consulted for glycemic management last evening (01/29) for BSG of 273 mg/dL * At this time patient ordered Lantus 12 units SC HS and Novolog parameters were tightened * Fasting BSG of 122 mg/dL this morning * Patient also found to have ESBL E.coli UTI - currently receiving ertapenem * Pre-lunch BSG of 290 mg/dL (of note: this was obtained ~1.5 hr after AM Novolog was given) PLAN FOR INPATIENT GLYCEMIC CONTROL: * Hold outpatient oral diabetes medications (metformin and glipizide) * Basal insulin * Lantus 12 units SQ daily (~0.2 unit/kg) - moved up to lunchtime given high BSG * Lantus scale to provide up to 5 additional units SC HS (see EHR for details) * Bolus insulin * NovoLog per scale ACHS or Q6hrs while NPO * Goal Range: Low 110 mg/dL - High 140 mg/dL * Correction Factor: 25 mg/dL/unit * Nutritional / Prandial insulin per carb ratio of 1 unit per 7 grams CHO consumed * Please note that the plan above was derived based on current level of insulin resistance and hospital stress. These recommendations are appropriate for inpatient admission only. Plan of care upon discharge will need to be reassessed to avoid potential outpatient hypo/hyperglycemia. Thank you.
[2020-01-31] MEDS ORDERED: POTASSIUM CHLORIDE CRTAB 20 MEQ TABCR PO STA (09:14)
[2020-01-31] MEDS: dilTIAZem HCL 125 MG in DEXTROSE 5% 100 ML IV SCH ×5 (09:35→13:59)
[2020-01-31] MEDS: INSULIN ASPART 100 UNITS/ML 3 ML PEN SC SCH ×4 (09:47→20:21)
[2020-01-31] MEDS: METOPROLOL TARTRATE 25 MG TAB PO SCH ×2 (09:52→20:25)
[2020-01-31] MEDS: ASPIRIN 81 MG ECTAB PO SCH (09:52)
[2020-01-31] MEDS: dilTIAZem HCL 30 MG TAB PO SCH ×3 (09:53→17:23)
[2020-01-31] MEDS: allopurinoL 100 MG TAB PO SCH ×2 (09:53→20:24)
--- NOTE | 2020-01-31 10:35 | Cardiology Progress Note ---
Date of Service January 31, 2020 Assessment & Plan (1) Acute and chronic respiratory failure with hypoxia: (2) Atrial flutter with rapid ventricular response: (3) Acute on chronic right heart failure: (4) Pulmonary hypertension: (5) UTI (urinary tract infection): (6) Acute kidney injury superimposed on chronic kidney disease: Increase oral diltiazem to 30 mg every 6 hours. Transition to Cardizem CD 120mg daily prior to discharge. Continue metoprolol 25 mg twice daily. INR is therapeutic. Lasix on hold. Patient appears compensated/euvolemic. Repeat BMP in a.m. Supplemental oxygen, BiPAP, antibiotics as per internal medicine/pulmonary service. Admission and Anticipated Discharge Date Admission Date: January 27, 2020 Subjective Patient seen and examined at the bedside. Heart rate unchanged on telemetry. ECG confirms atrial flutter with ventricular response of 93 bpm. Diuretics discontinued. Creatinine trending downward. Patient oxygen saturation stable on high flow nasal cannula oxygen. No edema, orthopnea, or PND. Denies chest pain or discomfort. Review of Systems Review of Systems: All systems reviewed & are unremarkable except as noted in HPI & below Physical Exam Constitutional: + ill appearing and + thin Respiratory: no respiratory distress, no labored breathing and no retractions Auscultation: + diminished lung sounds (Bilateral) and + crackles (Left base); no rhonchi and no wheezes Cardiovascular: Rate/Rhythm: regular rate Heart Sounds: normal S1 and normal S2; no murmur Vessels: radial pulses present; no JVD Extremities: no edema Gastrointestinal (Abdomen): Inspection/Auscultation: abdomen normal to inspection and normal bowel sounds; abdomen not distended Percussion/Palpation: abdomen soft; abdomen nontender, no guarding and abdomen not rigid Skin: no rashes, warm and dry Neurologic: moves all extremities Motor/Sensory: no tremor Psychiatric: A+Ox3, euthymic affect Results & Data ([facility]) Vital Signs (Past 12 Hours) Vital Signs Temp Pulse Pulse Resp BP Pulse Ox 01/31/20 08:00 36.5 C 94 H 18 124/82 93 01/31/20 07:22 94 H 18 92 01/31/20 04:00 36.6 C 94 H 18 124/76 92 01/31/20 02:27 87 16 95 01/31/20 00:07 36.5 C 95 H 16 115/72 95 01/30/20 23:42 76 01/30/20 23:09 94 H 18 90
[2020-01-31] MEDS ORDERED: INSULIN GLARGINE SOLOSTAR 100 UNITS/ML 3 ML PEN SC ONE ×2 (11:30→21:00)
[2020-01-31] MEDS: ERTAPENEM SODIUM 500 MG in SODIUM CHLORIDE 0.9% 50 ML IV SCH (12:18)
[2020-01-31 14:22] LABS: Calcium 9.1 mg/dl (8.5-10.1); Creatinine Clr Calc Pharmacy 15.3 ml/min; Est GFR (Non-African American) 17.2; Potassium 3.2 mmol/L (3.5-5.1)
--- NOTE | 2020-01-31 15:27 | Nephrology Progress Note ---
Date of Service January 31, 2020 Assessment & Plan (1) Acute kidney injury superimposed on chronic kidney disease: baseline 1.7 creat and plateau'd today at 2.4 from peak value this admission 2.6 yesterday, up at that time from 2.1 on01/29; baseline creatinine 1.7 though lowest creat this admission is 2.0 on 01/27 ->aggressive lasix dose held this am and pt now negative as below; takes 40 mg q48 hr as OP >would resume lasix at lower dose 10 mg IV bid17 and follow -gave 60 mEq K x 1 and ordered recheck >> still low; started K 40 mEq po bid STANDING >> LOW THRESHOLD TO MODIFY DOSE -daily bmp care coordinated w/ dr dunham (2) Respiratory failure, acute and chronic: on bipap or hi flow 02; cont to monitor; 3.5L negative on admission so far but lasix now on hold -resume low dose lasix >>>low threshold to repeat CXR >>follow pulm recs to resume sildafenil for plm HTN Admission and Anticipated Discharge Date Admission Date: January 27, 2020 Subjective eating better, more awake today; no interval events; feels breathing stab le/slightly improved lasix held this am; remaisn on hi flow 02 Review of Systems Review of Systems: All systems reviewed & are unremarkable except as noted in HPI & below Physical Exam Constitutional: well developed and + frail appearing; no acute distress Eyes: EOM intact bilaterally ENMT: Ears: no external ear abnormality Nose: no external nose abnormality Mouth: + dry oral mucous membranes Neck: no nuchal rigidity Respiratory: normal respiratory effort (on high flow 02) Auscultation: + diminished lung sounds and + crackles (L base) Cardiovascular: Rate/Rhythm: regular rhythm and + tachycardic Extremities: no edema Gastrointestinal (Abdomen): Inspection/Auscultation: normal bowel sounds Percussion/Palpation: abdomen soft; abdomen nontender Musculoskeletal: Extremities: strength 5/5 throughout Skin: no rashes, warm and dry Neurologic: pearson, fluent speech, slight tremor Psychiatric: Orientation: alert, oriented to person and oriented to place Affect: euthymic affect Insight: + limited insight Genitourinary: villalobos +ample yellow clear urine Results & Data ([facility]) Vital Signs (Past 12 Hours) Vital Signs Temp Pulse Pulse Pulse Resp BP Pulse Ox 01/31/20 11:45 36.5 C 95 H 20 103/66 89 L 01/31/20 11:29 95 H 19 91 01/31/20 08:00 36.5 C 93 H 94 H 18 124/82 93 01/31/20 07:22 94 H 18 92 01/31/20 04:00 36.6 C 94 H 18 124/76 92 Laboratory Results 01/31/20 07:01 01/31/20 13:53
--- NOTE | 2020-01-31 15:32 | Pulmonology Progress Note ---
Date of Service January 31, 2020 Assessment & Plan (1) Acute and chronic respiratory failure with hypoxia: Impression: 85-year-old female with history of pulmonary hypertension incompletely defined on sildenafil as an outpatient now admitted with atrial fibrillation with rapid ventricular response and associated acute on chronic hypoxemic respiratory failure. Recommendations: 1. Hypoxemia: Unclear etiology. This appears to be acting like shunt physiology and is certainly possible the patient may have a PFO or ASD with right to left shunting contributing to her hypoxemia. 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 She appears to be responding favorably for now and would continue current interventions including diuresis as tolerated by kidney function. Do not think the patient requires noninvasive positive pressure ventilation and we will try her on high flow oxygen rather than CPAP or BiPAP. 2. Pulmonary hypertension: Suspect this is WHO class II and III disease. Unclear indication for sildenafil in the outpatient setting but apparently this has been continued. Nitrates are now off so we will restart sildenafil and see how she does. If her right ventricular function continues to be problematic and causes cardiorenal syndrome, could consider more aggressive vasodilators although these would likely require the patient being transferred to a tertiary care center. Agree with diuresis as tolerated by kidney function 3. Remote history of PE: Continue anticoagulation. We will continue to follow. Patient needs to be out of bed to chair and ambulatory with aggressive incentive spirometry. (2) Pulmonary hypertension: (3) Atrial flutter with rapid ventricular response: Admission and Anticipated Discharge Date Admission Date: January 27, 2020 Subjective Patient seen and examined. She is awake and alert in no distress. She was talking on the phone. Her oxygen saturations were in the mid to high 80% range but she was clearly not dyspneic, tachypneic, or in any respiratory distress whatsoever. She denies cough or sputum production. No chest pain or palpitations. She does not like being on noninvasive positive pressure ventilation. Review of Systems Review of Systems: Unchanged from prior Physical Exam Physical Exam: General- oriented x 3, not in distress, speaks in sentences with no effort or accessory muscle use Eyes- anicteric Neck- no JVD Lungs- mild crackles at the bases, no wheezing Heart- normal rate, irregularly irregular rhythm; no murmurs Abdomen- normal bowel sounds, nondistended, soft, nontender Extremities- trace pretibial edema, no calf tenderness Neuro- alert, oriented x 3; no gross focal neurologic deficits Skin- warm & dry Results & Data Results & Data ([facility]) Vital Signs (Past 12 Hours) Vital Signs Temp Pulse Pulse Pulse Resp BP Pulse Ox 01/31/20 15:25 95 H 20 90 01/31/20 11:45 36.5 C 95 H 20 103/66 89 L 01/31/20 11:29 95 H 19 91 01/31/20 08:00 36.5 C 93 H 94 H 18 124/82 93 01/31/20 07:22 94 H 18 92 01/31/20 04:00 36.6 C 94 H 18 124/76 92 Laboratory Results 01/31/20 07:01 01/31/20 13:53 Diagnostic Findings No new imaging PG Care Time/CCT Total # of Minutes Spent Total Time Spent with Patient: Total time spent is greater than 50% in coordination of care (as documented) at patient's floor/unit and/or counseling patient: Coding Level of Care Code 69393 Subseq Hosp Care Lvl 3 Diagnoses Acute and chronic respiratory failure with hypoxia J96.21 Pulmonary hypertension I27.20 Atrial flutter with rapid ventricular response I48.92 Time Spent (min) 35
[2020-01-31] MEDS: FUROSEMIDE 10 MG in SYRINGE 0 ML IV SCH (16:28)
[2020-01-31] MEDS: ATORVASTATIN 10 MG TAB PO SCH (20:24)
[2020-01-31] MEDS: POTASSIUM CHLORIDE CRTAB 20 MEQ TABCR PO SCH (20:25)
[2020-01-31] MEDS: SILDENAFIL CITRATE 20 MG TABLET PO SCH (20:27)
--- NOTE | 2020-01-31 20:42 | Hospitalist Progress Note ---
Date of Service January 31, 2020 Assessment & Plan (1) Respiratory failure, acute and chronic: Acute on chronic hypoxic respiratory failure Acute exacerbation of chronic right ventricular failure Pulmonary hypertension --Echocardiogram noted: revealing severely dilated right ventricle, severely reduced function of the right ventricla --placed on Bipap --Freelance Director consulted Lasix increased to 80 mg every 8 hours--> diuresed well --volume overload improving Lasix held for increasing creatinine--> slightly improving Nephro recommending Lasix 10mg IV BID to start 01/31 -- Pulm recommended to transition from Bipap to High Flow Oxygen usual Sildenafil resumed --Assembler Corncob Pipes also consulted Possible NSTEMI Type II demand ischemia --Troponin levels 2.2, 2.5, 2.4 Rapid atrial flutter, hx PAF as per records --rate controlled P.o. Cardizem ordered, wean off Cardizem drip Acute renal failure on CKD stage IV possible cardiorenal syndrome --Creatinine 1.5 now 2.0--> 2.1--> 2.6--> 2.4 --Continue to monitor while on Lasix ESBL E. coli UTI --Transitioned to ertapenem day # 2 Continue to monitor Hypertension, BP on the lower side --Hold amlodipine hx PE on Coumadin --INR 4.1 Hold Coumadin resume accordingly PVD sp surgery DM 2 on oral meds, well controlled as of recent outpatient hemoglobin A1c of 6.6, September 2019 DVT prophylaxis. INR 4.4 Full code Disposition lives at home will need PT/OT Admission and Anticipated Discharge Date Admission Date: January 27, 2020 Subjective Follow-up for acute on chronic respiratory failure, CHF exacerbation, pulmonary hypertension seen resting in bed ,on oxymask--> being transitioned from Bipap to High Flow Oxygen alert, oriented x 3, conversant, talkative, in good spirits continues to feel improved breathing continues to improve denies chest pain, palpitations, nausea, dizziness no other symptoms Review of Systems Review of Systems: All systems reviewed & are unremarkable except as noted in Subjective Physical Exam Physical Exam: General- oriented x 3, not in distress, speaks in sentences with no effort or accessory muscle use Eyes- anicteric Neck- no JVD Lungs- mild rales at the bases, no wheezing good air entry bilaterally Heart- normal rate, irregularly irregular rhythm; no murmurs Abdomen- normal bowel sounds, nondistended, soft, nontender Extremities- no pretibial edema, no calf tenderness Neuro- alert, oriented x 3; no gross focal neurologic deficits Skin- warm & dry Results & Data Results & Data ([facility]) Vital Signs (Past 12 Hours) Vital Signs Temp Pulse Resp BP Pulse Ox 01/31/20 20:19 37.1 C 99 H 24 113/73 90 01/31/20 15:25 95 H 20 90 01/31/20 15:00 37.1 C 96 H 20 103/66 89 L 01/31/20 11:45 36.5 C 95 H 20 103/66 89 L 01/31/20 11:29 95 H 19 91 Laboratory Results noted and reviewed
[2020-02-01] MEDS: dilTIAZem HCL 30 MG TAB PO SCH ×4 (00:15→17:13)
[2020-02-01 06:22] LABS: Basophils # (auto) 0.01 K/uL (0-0.2); Basophils % (auto) 0.1 %; Eosinophils # (auto) 0.18 K/uL (0-0.5); Eosinophils % (auto) 2.5 %; Hematocrit (blood only) 38.6 % (37-47); Hemoglobin 12.6 g/dL (12.0-16.0); Immature Granulocytes # (auto) 0.02 K/uL (0.00-0.02); Immature Granulocytes % (auto) 0.3 %; Lymphocytes # (auto) 1.19 K/uL (1.2-3.4); Lymphocytes % (auto) 16.4 %; Mean Corpuscular Hgb Conc 32.6 g/dL (32-36); Mean Corpuscular Volume 91.9 fL (80-100); Mean Platelet Volume 9.5 fL (7.4-10.4); Monocytes % (auto) 9.6 %; Neutrophils # (auto) 5.17 K/uL (1.4-6.5); Neutrophils % (auto) 71.1 %; Platelet Count 218 K/uL (130-400); RDW Coefficient of Variation 13.9 % (11.5-14.5); White Blood Count 7.27 K/uL (4.8-10.8)
[2020-02-01 06:30] LABS: INR 2.8 (0.9-1.1); Prothrombin Time 27.8 Seconds (9.0-12.0)
[2020-02-01 06:56] LABS: BUN Creatinine Ratio 34.6 (10-20); Calcium 8.7 mg/dl (8.5-10.1); Creatinine Clr Calc Pharmacy 16.6 ml/min; Potassium 3.6 mmol/L (3.5-5.1)
[2020-02-01] MEDS: ASPIRIN 81 MG ECTAB PO SCH (08:16)
[2020-02-01] MEDS: METOPROLOL TARTRATE 25 MG TAB PO SCH ×2 (08:16→20:21)
[2020-02-01] MEDS: FUROSEMIDE 10 MG in SYRINGE 0 ML IV SCH ×2 (08:21→17:13)
[2020-02-01] MEDS: SILDENAFIL CITRATE 20 MG TABLET PO SCH ×2 (08:21→20:21)
[2020-02-01] MEDS: allopurinoL 100 MG TAB PO SCH ×2 (08:22→20:21)
[2020-02-01] MEDS: POTASSIUM CHLORIDE CRTAB 20 MEQ TABCR PO SCH ×2 (08:23→20:21)
--- NOTE | 2020-02-01 08:33 | Pharmacy Report ---
Pharmacy Glycemic Short Note 2 - Date of Service February 01, 2020 - Glycemic Short BSG Results (Last 24 hours): 01/31/20 01/31/20 01/31/20 11:10 11:11 13:53 Glucose 237 H POC Glucose 313 H* 290 H 01/31/20 01/31/20 02/01/20 16:22 20:19 05:57 Glucose 76 POC Glucose 96 75 02/01/20 08:14 Glucose POC Glucose 80 OUTPATIENT ANTIDIABETIC REGIMEN: * Metformin 500 mg PO BIDM * Glipizide 2.5 mg PO BID * HbA1c: 6.5% (01/27/20) ASSESSMENT: * BH is an 85 year old female admitted on 01/27 for acute respiratory failure * This is acute on chronic secondary to pulmonary hypertension/decompensated heart failure * BSGs yesterday, 122, 290, 96, 75 mg/dL * Plan to loosen Novolog parameters given downward trend throughout the day * Fasting BSG of 80 mg/dL this morning - will plan to decrease Lantus today * Patient also found to have ESBL E.coli UTI - currently receiving ertapenem * Pre-lunch BSG of 290 mg/dL (of note: this was obtained ~1.5 hr after AM Novolog was given) PLAN FOR INPATIENT GLYCEMIC CONTROL: * Hold outpatient oral diabetes medications (metformin and glipizide) * Basal insulin - decrease * Lantus 6 units SC daily * Lantus scale this evening to provide up to an additional 3 units of Lantus (see EHR for details) * Bolus insulin - loosen * NovoLog per scale ACHS or Q6hrs while NPO * Goal Range: Low 110 mg/dL - High 160 mg/dL * Correction Factor: 30 mg/dL/unit * Nutritional / Prandial insulin per carb ratio of 1 unit per 10 grams CHO consumed * Please note that the plan above was derived based on current level of insulin resistance and hospital stress. These recommendations are appropriate for inpatient admission only. Plan of care upon discharge will need to be reassessed to avoid potential outpatient hypo/hyperglycemia. Thank you.
[2020-02-01] MEDS ORDERED: INSULIN GLARGINE SOLOSTAR 100 UNITS/ML 3 ML PEN SC ONE (09:00)
[2020-02-01] MEDS: INSULIN GLARGINE SOLOSTAR 100 UNITS/ML 3 ML PEN SC SCH (09:23)
[2020-02-01] MEDS: INSULIN ASPART 100 UNITS/ML 3 ML PEN SC SCH ×4 (09:23→21:45)
--- NOTE | 2020-02-01 10:12 | Nephrology Progress Note ---
Date of Service February 01, 2020 Assessment & Plan (1) Acute kidney injury superimposed on chronic kidney disease: baseline 1.7 creat and plateau'd today at 2.25 from peak value this admission 2.6, up at that time from 2.1 on01/29; baseline creatinine 1.7 though lowest creat this admission is 2.0 on 01/27 -Continue lasix at lower dose 10 mg IV bid17 and follow -Continue K 40 mEq po bid STANDING >> LOW THRESHOLD TO MODIFY DOSE -daily bmp (2) Respiratory failure, acute and chronic: on bipap or hi flow 02; cont to monitor; 3.5L negative on admission so far but lasix now on hold -resume low dose lasix >>>low threshold to repeat CXR >>follow pulm recs to resume sildafenil for plm HTN Admission and Anticipated Discharge Date Admission Date: January 27, 2020 Subjective Seen in follow-up for RONY and respiratory failure. She complains of chronic shortness of breath. She is on high flow oxygen. Review of Systems Review of Systems: All systems reviewed & are unremarkable except as noted in HPI & below Physical Exam Physical Exam: General exam: Appears comfortable, no acute distress, on high flow oxygen HEENT: Pupils are equal and reactive to light Neck: No JVD, neck is supple trachea is midline Respiratory system: Crackles bilaterally. Gastrointestinal: Abdomen is soft, non distended, non tender, bowel sounds are present CVS: Regular rate and rhythm. No murmurs, rubs or gallops Musculoskeletal: No joint or muscle tenderness Extremities: Non tender, no edema, peripheral pulses are present Neuro: Oriented, no tremors, no focal neurological deficits Skin: No rashes Results & Data ([facility]) Vital Signs (Past 12 Hours) Vital Signs Temp Pulse Pulse Resp BP Pulse Ox 02/01/20 07:20 96 H 18 90 02/01/20 07:00 37.0 C 96 H 107/68 88 L 02/01/20 03:48 96 H 20 91 02/01/20 03:27 37.0 C 96 H 19 106/68 91 02/01/20 01:14 36.9 C 98 H 20 109/70 89 L 01/31/20 22:45 96 H 20 90 Laboratory Results 02/01/20 05:57 02/01/20 05:57 WBC 7.27 RBC 4.20 MCV 91.9 MCH 30.0 MCHC 32.6 RDW Std Deviation 47.0 H RDW Coeff of Bravo 13.9 Plt Count 218 MPV 9.5
--- NOTE | 2020-02-01 11:22 | Cardiology Progress Note ---
Date of Service February 01, 2020 Assessment & Plan (1) Cor pulmonale, chronic: (2) Atrial flutter with rapid ventricular response: (3) Acute and chronic respiratory failure with hypoxia: (4) Pulmonary hypertension: (5) UTI (urinary tract infection): (6) Acute kidney injury superimposed on chronic kidney disease: Continue oral diltiazem to 30 mg every 6 hours. Transition to Cardizem CD 120mg daily in AM 02/01. Continue metoprolol 25 mg twice daily. INR is therapeutic. Lasix on hold. Patient appears compensated/euvolemic. Repeat BMP in a.m. Patient will likely require maintenance diuretic therapy in the outpatient setting. Dose to be determined as clinical course unfolds, likely Lasix 40 to 80 mg daily. Supplemental oxygen, BiPAP, antibiotics as per internal medicine/pulmonary service. Admission and Anticipated Discharge Date Admission Date: January 27, 2020 Subjective Patient seen and examined the bedside. No changes overnight. Telemetry demonstrates atrial flutter with a ventricular rate of 93 bpm. Patient denies palpitations or lightheadedness. No chest discomfort. Fluid balance -695 cc. Diuretics on hold. Creatinine trending downward. Review of Systems Review of Systems: All systems reviewed & are unremarkable except as noted in HPI & below Physical Exam Constitutional: + ill appearing and + thin Respiratory: no respiratory distress, no labored breathing and no retractions Auscultation: + diminished lung sounds (Bilateral) and + crackles (Left base); no rhonchi and no wheezes Cardiovascular: Rate/Rhythm: regular rate Heart Sounds: normal S1 and normal S2; no murmur Vessels: radial pulses present; no JVD Extremities: no edema Gastrointestinal (Abdomen): Inspection/Auscultation: abdomen normal to inspection and normal bowel sounds; abdomen not distended Percussion/Palpation: abdomen soft; abdomen nontender, no guarding and abdomen not rigid Skin: no rashes, warm and dry Neurologic: moves all extremities Motor/Sensory: no tremor Psychiatric: A+Ox3, euthymic affect Results & Data ([facility]) Vital Signs (Past 12 Hours) Vital Signs Temp Pulse Pulse Resp BP Pulse Ox 02/01/20 11:15 89 18 90 02/01/20 07:20 96 H 18 90 02/01/20 07:00 37.0 C 96 H 107/68 88 L 02/01/20 03:48 96 H 20 91 11/25/20 03:27 37.0 C 96 H 19 106/68 91 02/01/20 01:14 36.9 C 98 H 20 109/70 89 L
[2020-02-01] MEDS: ERTAPENEM SODIUM 500 MG in SODIUM CHLORIDE 0.9% 50 ML IV SCH (11:23)
--- NOTE | 2020-02-01 13:47 | XRay Report ---
XR chest 1V portable CLINICAL HISTORY: Hypoxemia COMPARISON STUDY: Chest radiograph January 28, 2020. FINDINGS: Interstitial thickening and perihilar opacities have increased since prior examination. The re are small bilateral pleural effusions. No pneumothorax is noted. Cardiomegaly is unchanged. IMPRESSION: Interval progression of pulmonary edema and small bilateral pleural effusions. ACT 112: Negative or not required by law. Electronically signed by: Jeffery Solares M.D. 02/01/2020 1:46 PM
--- NOTE | 2020-02-01 14:35 | Pulmonology Progress Note ---
Date of Service February 01, 2020 Assessment & Plan (1) Acute and chronic respiratory failure with hypoxia: Impression: 85-year-old female with history of pulmonary hypertension incompletely defined on sildenafil as an outpatient now admitted with atrial fibrillation with rapid ventricular response and associated acute on chronic hypoxemic respiratory failure. Her chest x-ray shows progressive fluid overload Recommendations: 1. Hypoxemia: Likely multifactorial although chest x-ray appears to show increasing fluid and her diuretics were held. There is concerned about her renal function. I think she needs more aggressive diuresis but will defer to nephrology and cardiology as there is a risk of progressing to renal failure. This appears to be acting like shunt physiology and is certainly possible the patient may have a PFO or ASD with right to left shunting contributing to her hypoxemia. 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 She appears to be responding favorably for now and would continue current interventions including diuresis as tolerated by kidney function. Continue high flow titrated to keep saturations 85 to 88%. 2. Pulmonary hypertension: Suspect this is WHO class II and III disease. Unclear indication for sildenafil in the outpatient setting but apparently this has been continued. She is back on sildenafil and appears hemodynamically stable 3. Remote history of PE: Continue anticoagulation. We will continue to follow. I would favor very aggressive diuresis at this point in time although that may result in renal failure. Options were not great at this point time given her underlying kidney disease (2) Pulmonary hypertension: (3) Atrial flutter with rapid ventricular response: Admission and Anticipated Discharge Date Admission Date: January 27, 2020 Subjective Patient seen and examined. She remains on high flow and apparently desaturates relatively quickly. A follow-up chest x-ray was performed which reveals progressive fluid overload despite diuresis. Review of Systems Review of Systems: Unchanged from prior Physical Exam Physical Exam: General- oriented x 3, not in distress, speaks in sentences with no effort or accessory muscle use Eyes- anicteric Neck- no JVD Lungs- mild crackles at the bases, no wheezing Heart- normal rate, irregularly irregular rhythm; no murmurs Abdomen- normal bowel sounds, nondistended, soft, nontender Extremities- trace pretibial edema, no calf tenderness Neuro- alert, oriented x 3; no gross focal neurologic deficits Skin- warm & dry Results & Data Results & Data ([facility]) Vital Signs (Past 12 Hours) Vital Signs Temp Pulse Pulse Resp BP Pulse Ox 02/01/20 11:15 89 18 90 02/01/20 11:00 36.6 C 96 H 17 100/64 90 02/01/20 07:20 96 H 18 90 02/01/20 07:00 37.0 C 96 H 107/68 88 L 02/01/20 03:48 96 H 20 91 02/01/20 03:27 37.0 C 96 H 19 106/68 91 Laboratory Results 02/01/20 05:57 02/01/20 05:57 Diagnostic Findings Chest x-ray independently reviewed with what appears to be progressive fluid overload with small bilateral effusions and increased pulmonary vascularity PG Care Time/CCT Total # of Minutes Spent Total Time Spent with Patient: Total time spent is greater than 50% in coordination of care (as documented) at patient's floor/unit and/or counseling patient: Coding Level of Care Code 44915 Subseq Hosp Care Lvl 3 Diagnoses Acute and chronic respiratory failure with hypoxia J96.21 Pulmonary hypertension I27.20 Atrial flutter with rapid ventricular response I48.92
--- NOTE | 2020-02-01 15:58 | Hospitalist Progress Note ---
Date of Service February 01, 2020 Assessment & Plan (1) Respiratory failure, acute and chronic: Acute on chronic hypoxic respiratory failure Acute exacerbation of chronic right ventricular failure Pulmonary hypertension Possible NSTEMI Type II demand ischemia Troponin levels 2.2, 2.5, 2.4 Echocardiogram noted: severely dilated right ventricle, severely reduced function of the right ventricle Promotional Marketing Analyst recommendations noted Currently on low dose Lasix at 10 mg IV twice daily Inspector Wire Rope recommendations noted Continue high flow nasal oxygen right now and wean as tolerated Continue sildenafil Atrial flutter Hx PAF as per records Rate controlled Currently on diltiazem 30 mg every 6 with possible transition to 120 mg daily from tomorrow INR is therapeutic today Acute renal failure on CKD stage IV possible cardiorenal syndrome Creatinine 1.5 now 2.0--> 2.1--> 2.6--> 2.4-->2.25 Continue to monitor while on Lasix Document Improvement Specialist recommendations noted ESBL E. coli UTI Continue ertapenem day 3 Hypertension BP on the lower side Continue to hold amlodipine hx PE on Coumadin Supratherapeutic INR INR down to 2.8 Takes warfarin 3.75mg MWF and 7.5mg on other days Will resume at 3.75mg daily for now and monitor INR PVD s/p surgery DM 2 On oral meds Well controlled as of recent outpatient hemoglobin A1c of 6.6, September 2019 A1c this admission 6.5 Hold oral meds Continue insulin sliding scale per protocol while inpatient DVT prophylaxis. Resume warfarin as above Full code Disposition lives at home Get PT/OT Admission and Anticipated Discharge Date Admission Date: January 27, 2020 Subjective Patient seen and examined. Still requiring high flow nasal oxygen Desaturates easily with activity Denies any complaints at this point Denies any shortness of breath, chest pain, cough, Denies any fevers, nausea vomiting Denies any abdominal pain, diarrhea Physical Exam Constitutional: + well hydrated; no acute distress Elderly woman Eyes: PERRL, conjunctivae normal, anicteric sclerae ENMT: On high flow nasal cannula. Small skin abrasion on the bridge of the nose. Patient ascribed this to the previous BiPAP mask Respiratory: On high flow nasal cannula, not in respiratory distress, mild basilar crackles Cardiovascular: Rate/Rhythm: + irregularly irregular S1-S2 Gastrointestinal (Abdomen): normal bowel sounds, soft, nontender, no hepatosplenomegaly Musculoskeletal: Trace pedal edema Neurologic: PERRL, EOMI, accommodation nl, no face palsy, no dysarthria Psychiatric: A+Ox3, euthymic affect Results & Data Results & Data ([facility]) Vital Signs (Past 12 Hours) Vital Signs Temp Pulse Pulse Resp BP Pulse Ox 02/01/20 15:50 36.6 C 98 H 95/56 L 97 02/01/20 15:16 98 H 18 97 02/01/20 11:15 89 18 90 02/01/20 11:00 36.6 C 96 H 17 100/64 90 02/01/20 07:20 96 H 18 90 02/01/20 07:00 37.0 C 96 H 107/68 88 L Laboratory Results Laboratory Results - last 24 hr 01/31/20 01/31/20 02/01/20 16:22 20:19 05:57 WBC 7.27 RBC 4.20 Hgb 12.6 Hct 38.6 MCV 91.9 MCH 30.0 MCHC 32.6 RDW Std Deviation 47.0 H RDW Coeff of Bravo 13.9 Plt Count 218 MPV 9.5 Immature Gran % (Auto) 0.3 Neut % (Auto) 71.1 Lymph % (Auto) 16.4 [place] % (Auto) 9.6 Eos % (Auto) 2.5 Baso % (Auto) 0.1 Neut # (Auto) 5.17 Lymph # (Auto) 1.19 L [place] # (Auto) 0.70 H Eos # (Auto) 0.18 Baso # (Auto) 0.01 Immature Gran # (Auto) 0.02 PT INR Sodium Potassium Chloride Carbon Dioxide Anion Gap BUN Creatinine Est Cr Clr Drug Dosing Est GFR ( Amer) Est GFR (Non-Af Amer) BUN/Creatinine Ratio Glucose POC Glucose 96 75 Calcium 02/01/20 02/01/20 02/01/20 05:57 05:57 08:14 WBC RBC Hgb Hct MCV MCH MCHC RDW Std Deviation RDW Coeff of Bravo Plt Count MPV Immature Gran % (Auto) Neut % (Auto) Lymph % (Auto) [place] % (Auto) Eos % (Auto) Baso % (Auto) Neut # (Auto) Lymph # (Auto) [place] # (Auto) Eos # (Auto) Baso # (Auto) Immature Gran # (Auto) PT 27.8 H INR 2.8 H Sodium 138 Potassium 3.6 Chloride 102 Carbon Dioxide 31 Anion Gap 5.0 BUN 78 H Creatinine 2.25 H Est Cr Clr Drug Dosing 16.6 Est GFR ( Amer) 22.0 Est GFR (Non-Af Amer) 19.0 BUN/Creatinine Ratio 34.6 H Glucose 76 POC Glucose 80 Calcium 8.7 02/01/20 02/01/20 11:19 15:48 WBC RBC Hgb Hct MCV MCH MCHC RDW Std Deviation RDW Coeff of Bravo Plt Count MPV Immature Gran % (Auto) Neut % (Auto) Lymph % (Auto) [place] % (Auto) Eos % (Auto) Baso % (Auto) Neut # (Auto) Lymph # (Auto) [place] # (Auto) Eos # (Auto) Baso # (Auto) Immature Gran # (Auto) PT INR Sodium Potassium Chloride Carbon Dioxide Anion Gap BUN Creatinine Est Cr Clr Drug Dosing Est GFR ( Amer) Est GFR (Non-Af Amer) BUN/Creatinine Ratio Glucose POC Glucose 115 H 167 H Calcium
[2020-02-01] MEDS ORDERED: WARFARIN SOD 1.25 MG TAB PO SCH (16:45)
[2020-02-01] MEDS: ATORVASTATIN 10 MG TAB PO SCH (20:22)
[2020-02-01] MEDS ORDERED: INSULIN GLARGINE SOLOSTAR 100 UNITS/ML 3 ML PEN SC SCH (21:00)
[2020-02-02] MEDS: dilTIAZem HCL 30 MG TAB PO SCH ×2 (05:50)
[2020-02-02 07:05] LABS: Basophils # (auto) 0.02 K/uL (0-0.2); Basophils % (auto) 0.3 %; Eosinophils # (auto) 0.17 K/uL (0-0.5); Eosinophils % (auto) 2.5 %; Hematocrit (blood only) 39.9 % (37-47); Hemoglobin 12.6 g/dL (12.0-16.0); Immature Granulocytes # (auto) 0.01 K/uL (0.00-0.02); Immature Granulocytes % (auto) 0.1 %; Lymphocytes # (auto) 1.34 K/uL (1.2-3.4); Lymphocytes % (auto) 19.9 %; Mean Corpuscular Hgb Conc 31.6 g/dL (32-36); Mean Corpuscular Volume 91.9 fL (80-100); Mean Platelet Volume 9.9 fL (7.4-10.4); Monocytes # (auto) 0.62 K/uL (0.11-0.59); Monocytes % (auto) 9.2 %; Neutrophils # (auto) 4.59 K/uL (1.4-6.5); Platelet Count 225 K/uL (130-400); RDW Standard Deviation 47.2 fL (36.4-46.3); Red Blood Count 4.34 M/uL (4.2-5.4); White Blood Count 6.75 K/uL (4.8-10.8)
[2020-02-02 07:16] LABS: INR 1.6 (0.9-1.1); Prothrombin Time 16.1 Seconds (9.0-12.0)
[2020-02-02 07:32] LABS: BUN Creatinine Ratio 38.6 (10-20); Calcium 8.8 mg/dl (8.5-10.1); Creatinine Clr Calc Pharmacy 18.2 ml/min; Est GFR (African American) 24.6; Est GFR (Non-African American) 21.3; Potassium 3.9 mmol/L (3.5-5.1)
[2020-02-02] MEDS: ASPIRIN 81 MG ECTAB PO SCH (08:41)
[2020-02-02] MEDS: POTASSIUM CHLORIDE CRTAB 20 MEQ TABCR PO SCH ×2 (08:41→21:39)
[2020-02-02] MEDS: METOPROLOL TARTRATE 25 MG TAB PO SCH ×2 (08:41→20:51)
[2020-02-02] MEDS: allopurinoL 100 MG TAB PO SCH ×2 (08:41→20:51)
[2020-02-02] MEDS: SILDENAFIL CITRATE 20 MG TABLET PO SCH ×2 (08:41→21:41)
[2020-02-02] MEDS: FUROSEMIDE 10 MG in SYRINGE 0 ML IV SCH (08:42)
[2020-02-02] MEDS: INSULIN ASPART 100 UNITS/ML 3 ML PEN SC SCH ×4 (09:12→20:41)
[2020-02-02] MEDS: INSULIN GLARGINE SOLOSTAR 100 UNITS/ML 3 ML PEN SC SCH (09:30)
--- NOTE | 2020-02-02 10:13 | Nephrology Progress Note ---
Date of Service February 02, 2020 Assessment & Plan (1) Acute kidney injury superimposed on chronic kidney disease: baseline 1.7 creat and plateau'd today at 2 from 2.25 yesterday. peak value this admission 2.6, up at that time from 2.1 on01/29; baseline creatinine 1.7 though lowest creat this admission is 2.0 on 01/27 -Increase lasix to 20 mg IV bid17 and follow -Continue K 40 mEq po bid STANDING >> LOW THRESHOLD TO MODIFY DOSE -daily bmp (2) Respiratory failure, acute and chronic: on bipap or hi flow 02; cont to monitor; -Continue Lasix as above. >>>low threshold to repeat CXR >>follow pulm recs to resume sildafenil for plm HTN Admission and Anticipated Discharge Date Admission Date: January 27, 2020 Subjective Seen in follow-up for acute kidney injury and volume overload. She is still on high flow oxygen but breathing is stable. No leg swelling. She was net -0.9 L yesterday Review of Systems Review of Systems: All systems reviewed & are unremarkable except as noted in HPI & below Physical Exam Physical Exam: General exam: Appears comfortable, no acute distress HEENT: Pupils are equal and reactive to light Neck: No JVD, neck is supple trachea is midline Respiratory system: Crackles bilaterally. Gastrointestinal: Abdomen is soft, non distended, non tender, bowel sounds are present CVS: Regular rate and rhythm. No murmurs, rubs or gallops Musculoskeletal: No joint or muscle tenderness Extremities: Non tender, no edema, peripheral pulses are present Neuro: Oriented, no tremors, no focal neurological deficits Skin: No rashes Results & Data ([facility]) Vital Signs (Past 12 Hours) Vital Signs Temp Pulse Pulse Resp BP Pulse Ox 02/02/20 07:56 36.9 C 95 H 18 123/79 93 02/02/20 07:45 95 H 20 92 02/02/20 02:50 95 H 18 89 L 02/02/20 00:00 36.9 C 95 H 20 112/72 89 L 02/01/20 23:51 36.8 C 95 H 19 111/71 92 02/01/20 23:10 94 H 20 91 Laboratory Results 02/02/20 06:25 02/02/20 06:25 WBC 6.75 RBC 4.34 MCV 91.9 MCH 29.0 MCHC 31.6 L RDW Std Deviation 47.2 H RDW Coeff of Bravo 14.0 Plt Count 225 MPV 9.9
--- NOTE | 2020-02-02 10:55 | Cardiology Progress Note ---
Date of Service February 02, 2020 Assessment & Plan (1) Cor pulmonale, chronic: (2) Atrial flutter with rapid ventricular response: (3) Acute and chronic respiratory failure with hypoxia: (4) Pulmonary hypertension: (5) UTI (urinary tract infection): (6) Acute kidney injury superimposed on chronic kidney disease: Transition to Cardizem CD 120mg daily. Continue metoprolol 25 mg twice daily. INR is subtherapeutic today. Dose Coumadin for goal INR of 2.0-3.0. Continue IV Lasix. Repeat BMP in a.m. Supplemental oxygen, BiPAP, antibiotics as per internal medicine/pulmonary service. Admission and Anticipated Discharge Date Admission Date: January 27, 2020 Subjective Patient seen and examined the bedside. Repeat chest x-ray performed 01/31 demonstrates progression of pulmonary vascular congestion. Intravenous diuretic therapy restarted by nephrology. Patient respiratory status improved. She is comfortable without tachypnea on high flow oxygen. No orthopnea, PND, or edema. Creatinine trending downward. Telemetry demonstrates atrial flutter with a heart rate of 93 bpm. Review of Systems Review of Systems: All systems reviewed & are unremarkable except as noted in HPI & below Physical Exam Constitutional: + ill appearing and + thin Respiratory: no respiratory distress, no labored breathing and no retractions Auscultation: + diminished lung sounds (Bilateral) and + crackles (Left base); no rhonchi and no wheezes Cardiovascular: Rate/Rhythm: regular rate Heart Sounds: normal S1 and normal S2; no murmur Vessels: radial pulses present; no JVD Extremities: no edema Gastrointestinal (Abdomen): Inspection/Auscultation: abdomen normal to inspection and normal bowel sounds; abdomen not distended Percussi on/Palpation: abdomen soft; abdomen nontender, no guarding and abdomen not rigid Skin: no rashes, warm and dry Neurologic: moves all extremities Motor/Sensory: no tremor Psychiatric: A+Ox3, euthymic affect Results & Data ([facility]) Vital Signs (Past 12 Hours) Vital Signs Temp Pulse Pulse Resp BP Pulse Ox 02/02/20 07:56 36.9 C 95 H 18 123/79 93 02/02/20 07:45 95 H 20 92 02/02/20 02:50 95 H 18 89 L 02/02/20 00:00 36.9 C 95 H 20 112/72 89 L 02/01/20 23:51 36.8 C 95 H 19 111/71 92 02/01/20 23:10 94 H 20 91
--- NOTE | 2020-02-02 12:27 | Pulmonology Progress Note ---
Date of Service February 02, 2020 Assessment & Plan (1) Acute on chronic right heart failure: Impression: 85-year-old female with history of pulmonary hypertension incompletely defined on sildenafil as an outpatient now admitted with atrial fibrillation with rapid ventricular response and associated acute on chronic hypoxemic respiratory failure. Her chest x-ray shows progressive fluid overload Recommendations: 1. Hypoxemia: Recommend continuing diuresis as x-ray appears consistent with fluid overload. This appears to be acting like shunt physiology and is certainly possible the patient may have a PFO or ASD with right to left shunting contributing to her hypoxemia. Could consider repeating her echocardiogram with bubble study although I doubt it would oil changer in the long-term. She appears to be responding favorably for now and would continue current interve ntions including diuresis as tolerated by kidney function. Continue high flow titrated to keep saturations 85 to 88%. 2. Pulmonary hypertension: Suspect this is WHO class II and III disease. Uncle ar indication for sildenafil in the outpatient setting but apparently this has been continued. She is back on sildenafil and appears hemodynamically stable 3. Remote history of PE: Continue anticoagulation. We will continue to follow. I would favor very aggressive diuresis at this point in time although that may result in renal failure. Options were not great at this point time given her underlying kidney disease (2) Acute and chronic respiratory failure with hypoxia: Admission and Anticipated Discharge Date Admission Date: January 27, 2020 Subjective Patient is seen and examined. She is sitting up in a chair. She does not appear to be any more dyspneic than usual. She remains on high flow. She is tolerating a diet. She denies chest pain palpitations or lower extremity edema. Review of Systems Review of Systems: All systems reviewed & are unremarkable except as noted in HPI & below Physical Exam Constitutional: WD/WN, vitals as above Neck: trachea midline, no thyromegaly Respiratory: normal respiratory effort Few basilar crackles Cardiovascular: Rate/Rhythm: regular rate Heart Sounds: normal S1 and normal S2 Extremities: no edema Gastrointestinal (Abdomen): normal bowel sounds, soft, nontender, no hepatosplenomegaly Musculoskeletal: Extremities: extremities normal to inspection Skin: no rashes, warm and dry Neurologic: Nonfocal exam Lymphatic: no cervical lymphadenopathy Results & Data Results & Data ([facility]) Vital Signs (Past 12 Hours) Vital Signs Temp Pulse Pulse Pulse Resp BP Pulse Ox 02/02/20 11:29 36.9 C 96 H 18 115/67 98 02/02/20 10:50 91 02/02/20 08:00 88 02/02/20 07:56 36.9 C 95 H 18 123/79 93 02/02/20 07:45 95 H 20 92 02/02/20 02:50 95 H 18 89 L Laboratory Results 02/02/20 06:25 02/02/20 06:25 Diagnostic Findings Chest x-ray from yesterday demonstrated what appears to be fluid overload with bilateral pleural effusions and increased vascular markings PG Care Time/CCT Total # of Minutes Spent Total Time Spent with Patient: Total time spent is greater than 50% in coordination of care (as documented) at patient's floor/unit and/or counseling patient: Coding Level of Care Code 35779 Subseq Hosp Care Lvl 2 Diagnoses Acute on chronic right heart failure I50.813 Acute and chronic respiratory failure with hypoxia J96.21
[2020-02-02] MEDS: FUROSEMIDE 20 MG in SYRINGE 0 ML IV SCH ×2 (12:35→17:29)
[2020-02-02] MEDS: ERTAPENEM SODIUM 500 MG in SODIUM CHLORIDE 0.9% 50 ML IV SCH (12:42)
[2020-02-02] MEDS: dilTIAZem HCL 120 MG CAPCR PO SCH (12:42)
--- NOTE | 2020-02-02 13:33 | Hospitalist Progress Note ---
Date of Service February 02, 2020 Assessment & Plan (1) Respiratory failure, acute and chronic: Acute on chronic hypoxic respiratory failure Acute exacerbation of chronic right ventricular failure Pulmonary hypertension Possible NSTEMI Type II demand ischemia Troponin levels 2.2, 2.5, 2.4 Echocardiogram noted: severely dilated right ventricle, severely reduced function of the right ventricle Credit Products Officer recommendations noted Combat Systems Engineer recommendations noted Lasix increased to 20mg bid Continue to wean down high flow nasal oxygen as tolerated Continue sildenafil Atrial flutter Hx PAF as per records Rate controlled Transitioned to diltiazem CD 120mg this morning INR is subtherapeutic today. Warfarin resumed yesterday Monitor INR Acute renal failure on CKD stage IV possible cardiorenal syndrome Creatinine 1.5 now 2.0--> 2.1--> 2.6--> 2.4-->2.25 Continue to monitor while on Lasix Computer Aided Design Designer recommendations noted ESBL E. coli UTI Continue ertapenem day 3 Hypertension BP on the lower side Continue to hold amlodipine hx PE on Coumadin Supratherapeutic INR INR was 4.3 on admission. Warfarin was initially held Was resumed yesterday Takes warfarin 3.75mg MWF and 7.5mg on other days PVD s/p surgery DM 2 On oral meds Well controlled as of recent outpatient hemoglobin A1c of 6.6, September 2019 A1c this admission 6.5 Hold oral meds Continue insulin sliding scale per protocol while inpatient DVT prophylaxis. Resume warfarin as above Full code Disposition lives at home Get PT/OT Admission and Anticipated Discharge Date Admission Date: January 27, 2020 Subjective Patient seen and examined Patient has no new complaints Still on high flow nasal oxygen. Being weaned down. Currently on 65%, 25LPM. Denies any shortness of breath, chest pain, cough, Physical Exam Constitutional: + well hydrated; no acute distress Eyes: PERRL, conjunctivae normal, anicteric sclerae ENMT: On high flow Cardiovascular: Rate/Rhythm: + irregularly irregular S1 S2 Gastrointestinal (Abdomen): normal bowel sounds, soft, nontender, no hepatosplenomegaly Musculoskeletal: No pedal edema Neurologic: PERRL, EOMI, accommodation nl, no face palsy, no dysarthria Psychiatric: A+Ox3, euthymic affect Results & Data Results & Data ([facility]) Vital Signs (Past 12 Hours) Vital Signs Temp Pulse Pulse Pulse Resp BP Pulse Ox 11/26/20 12:34 97 H 18 97 02/02/20 11:29 36.9 C 96 H 18 115/67 98 02/02/20 10:50 91 02/02/20 08:00 88 02/02/20 07:56 36.9 C 95 H 18 123/79 93 02/02/20 07:45 95 H 20 92 02/02/20 02:50 95 H 18 89 L Laboratory Results Laboratory Results - last 24 hr 02/01/20 02/01/20 02/02/20 15:48 20:01 06:25 WBC 6.75 RBC 4.34 Hgb 12.6 Hct 39.9 MCV 91.9 MCH 29.0 MCHC 31.6 L RDW Std Deviation 47.2 H RDW Coeff of Bravo 14.0 Plt Count 225 MPV 9.9 Immature Gran % (Auto) 0.1 Neut % (Auto) 68.0 Lymph % (Auto) 19.9 [place] % (Auto) 9.2 Eos % (Auto) 2.5 Baso % (Auto) 0.3 Neut # (Auto) 4.59 Lymph # (Auto) 1.34 [place] # (Auto) 0.62 H Eos # (Auto) 0.17 Baso # (Auto) 0.02 Immature Gran # (Auto) 0.01 PT INR Sodium Potassium Chloride Carbon Dioxide Anion Gap BUN Creatinine Est Cr Clr Drug Dosing Est GFR ( Amer) Est GFR (Non-Af Amer) BUN/Creatinine Ratio Glucose POC Glucose 167 H 159 H Calcium Magnesium 02/02/20 02/02/20 02/02/20 06:25 06:25 07:54 WBC RBC Hgb Hct MCV MCH MCHC RDW Std Deviation RDW Coeff of Bravo Plt Count MPV Immature Gran % (Auto) Neut % (Auto) Lymph % (Auto) [place] % (Auto) Eos % (Auto) Baso % (Auto) Neut # (Auto) Lymph # (Auto) [place] # (Auto) Eos # (Auto) Baso # (Auto) Immature Gran # (Auto) PT 16.1 H INR 1.6 H Sodium 138 Potassium 3.9 Chloride 103 Carbon Dioxide 29 Anion Gap 6.0 BUN 79 H Creatinine 2.05 H Est Cr Clr Drug Dosing 18.2 Est GFR ( Amer) 24.6 Est GFR (Non-Af Amer) 21.3 BUN/Creatinine Ratio 38.6 H Glucose 95 POC Glucose 105 H Calcium 8.8 Magnesium 2.0 02/02/20 11:32 WBC RBC Hgb Hct MCV MCH MCHC RDW Std Deviation RDW Coeff of Bravo Plt Count MPV Immature Gran % (Auto) Neut % (Auto) Lymph % (Auto) [place] % (Auto) Eos % (Auto) Baso % (Auto) Neut # (Auto) Lymph # (Auto) [place] # (Auto) Eos # (Auto) Baso # (Auto) Immature Gran # (Auto) PT INR Sodium Potassium Chloride Carbon Dioxide Anion Gap BUN Creatinine Est Cr Clr Drug Dosing Est GFR ( Amer) Est GFR (Non-Af Amer) BUN/Creatinine Ratio Glucose POC Glucose 231 H Calcium Magnesium
[2020-02-02] MEDS: WARFARIN SOD 7.5 MG TAB PO SCH (17:58)
[2020-02-02] MEDS: ATORVASTATIN 10 MG TAB PO SCH (21:40)
[2020-02-03] MEDS: FUROSEMIDE 20 MG in SYRINGE 0 ML IV SCH ×2 (07:58→17:37)
[2020-02-03] MEDS: POTASSIUM CHLORIDE CRTAB 20 MEQ TABCR PO SCH ×2 (07:59→20:46)
[2020-02-03] MEDS: dilTIAZem HCL 120 MG CAPCR PO SCH (07:59)
[2020-02-03] MEDS: allopurinoL 100 MG TAB PO SCH ×2 (07:59→20:46)
[2020-02-03] MEDS: METOPROLOL TARTRATE 25 MG TAB PO SCH ×2 (07:59→20:46)
[2020-02-03] MEDS: SILDENAFIL CITRATE 20 MG TABLET PO SCH ×2 (07:59→20:46)
[2020-02-03] MEDS: ASPIRIN 81 MG ECTAB PO SCH (07:59)
[2020-02-03] MEDS: INSULIN GLARGINE SOLOSTAR 100 UNITS/ML 3 ML PEN SC SCH ×2 (08:10→08:12)
[2020-02-03] MEDS: INSULIN ASPART 100 UNITS/ML 3 ML PEN SC SCH ×4 (08:11→20:47)
--- NOTE | 2020-02-03 09:30 | Pharmacy Report ---
Pharmacy Glycemic Short Note 2 - Date of Service February 03, 2020 - Glycemic Short BSG Results (Last 24 hours): 02/02/20 02/02/20 02/02/20 11:32 16:21 20:16 POC Glucose 231 H 154 H 158 H 02/03/20 07:21 POC Glucose 137 H OUTPATIENT ANTIDIABETIC REGIMEN: * Metformin 500 mg PO BIDM * Glipizide 2.5 mg PO BID * HbA1c: 6.5% (01/27/20) ASSESSMENT: 02/02: 02/02: * Pt has received 26 units of SQ insulin over the past 24hrs * 9 units of basal insulin with Lantus * 17 units of bolus insulin with NovoLog * BSGs [phone] mg/dl * BSGs adequately controlled over the past 24hrs with current orders. * No changes needed sq basal bolus insulin regimen 02/01/20: * BH is an 85 year old female admitted on 01/27 for acute respiratory failure * This is acute on chronic secondary to pulmonary hypertension/decompensated heart failure * BSGs yesterday, 122, 290, 96, 75 mg/dL * Plan to loosen Novolog parameters given downward trend throughout the day * Fasting BSG of 80 mg/dL this morning - will plan to decrease Lantus today * Patient also found to have ESBL E.coli UTI - currently receiving ertapenem * Pre-lunch BSG of 290 mg/dL (of note: this was obtained ~1.5 hr after AM Novolog was given) PLAN FOR INPATIENT GLYCEMIC CONTROL: * Hold outpatient oral diabetes medications (metformin and glipizide). Utilizing SQ basal bolus insulin regimen for inpatient use. * Basal insulin * Lantus 9 units SQ daily * Bolus insulin - * NovoLog per scale ACHS or Q6hrs while NPO * Goal Range: Low 110 mg/dL - High 160 mg/dL * Correction Factor: 30 mg/dL/unit * Nutritional / Prandial insulin per carb ratio of 1 unit per 10 grams CHO consumed * Please note that the plan above was derived based on current level of insulin resistance and hospital stress. These recommendations are appropriate for inpatient admission only. Plan of care upon discharge will need to be reassessed to avoid potential outpatient hypo/hyperglycemia. Thank you.
--- NOTE | 2020-02-03 09:44 | Nephrology Progress Note ---
Date of Service February 03, 2020 Assessment & Plan (1) Acute kidney injury superimposed on chronic kidney disease: baseline 1.7 creat and plateau'd today at 2 from 2.25 yesterday. peak value this admission 2.6, up at that time from 2.1 on01/29; baseline creatinine 1.7 though lowest creat this admission is 2.0 on 01/27 -Continue lasix to 20 mg IV bid17 and follow -Continue K 40 mEq po bid STANDING >> LOW THRESHOLD TO MODIFY DOSE -daily bmp (2) Respiratory failure, acute and chronic: on bipap or hi flow 02; cont to monitor; -Continue Lasix as above. -Titrate FiO2 to maintain sats above 90 Admission and Anticipated Discharge Date Admission Date: January 27, 2020 Subjective Seen in follow-up for acute kidney injury and volume overload. Breathing is stable. FiO2 requirement is reducing. No leg swelling. She was net -1.4 L Review of Systems Review of Systems: All systems reviewed & are unremarkable except as noted in HPI & below Physical Exam Physical Exam: General exam: Appears comfortable, no acute distress, on high flow oxygen HEENT: Pupils are equal and reactive to light Neck: No JVD, neck is supple trachea is midline Respiratory system: Crackles bilaterally. Gastrointestinal: Abdomen is soft, non distended, non tender, bowel sounds are present CVS: Regular rate and rhythm. No murmurs, rubs or gallops Musculoskeletal: No joint or muscle tenderness Extremities: Non tender, no edema, peripheral pulses are present Neuro: Oriented, no tremors, no focal neurological deficits Skin: No rashes Results & Data ([facility]) Vital Signs (Past 12 Hours) Vital Signs Temp Pulse Pulse Pulse Resp BP Pulse Ox 02/03/20 07:35 94 H 18 90 02/03/20 07:22 36.9 C 101 H 22 121/75 92 02/03/20 05:18 36.8 C 94 H 20 115/75 89 L 02/03/20 02:53 96 H 18 89 L 02/03/20 00:08 94 H 18 92 02/03/20 00:00 97 H 02/02/20 23:28 37.2 C 93 H 18 110/66 95
[2020-02-03 09:59] LABS: BUN Creatinine Ratio 41.1 (10-20); BUN Creatinine Ratio 42.2 (10-20); Calcium 9.1 mg/dl (8.5-10.1); Creatinine Clr Calc Pharmacy 19.2 ml/min; Est GFR (African American) 25.8; Est GFR (African American) 26.2; Est GFR (Non-African American) 22.3; Est GFR (Non-African American) 22.6; Potassium 3.8 mmol/L (3.5-5.1)
[2020-02-03 10:00] LABS: INR 1.4 (0.9-1.1); Prothrombin Time 14.1 Seconds (9.0-12.0)
[2020-02-03] MEDS: ERTAPENEM SODIUM 500 MG in SODIUM CHLORIDE 0.9% 50 ML IV SCH (10:47)
--- NOTE | 2020-02-03 11:22 | Hospitalist Progress Note ---
Date of Service February 03, 2020 Assessment & Plan (1) Respiratory failure, acute and chronic: Acute on chronic hypoxic respiratory failure Acute exacerbation of chronic right ventricular failure Pulmonary hypertension Possible NSTEMI Type II demand ischemia Troponin levels 2.2, 2.5, 2.4 Echocardiogram noted: severely dilated right ventricle, severely reduced function of the right ventricle Director Life recommendations noted Dry Cleaner recommendations noted Continue Lasix 20 mg twice daily Continue to wean down high flow nasal oxygen as tolerated with goal of possibly weaning to nasal cannula today Continue sildenafil Atrial flutter Hx PAF as per records Rate controlled Transitioned to diltiazem CD 120mg this morning INR still subtherapeutic today. Warfarin resumed 2 days ago Will give 5mg today and continue home dose Monitor INR Acute renal failure on CKD stage IV possible cardiorenal syndrome Creatinine 1.5 now 2.0--> 2.1--> 2.6--> 2.4-->2.25-->1.95 Continue to monitor while on Lasix Senior Infrastructure Architect recommendations noted ESBL E. coli UTI Continue ertapenem day 5 today Hypertension BP on the lower side Continue to hold amlodipine hx PE on Coumadin Supratherapeutic INR INR was 4.3 on admission. Warfarin was initially held Was resumed 2 day Still subtherapeutic Will give 5mg warfarin today and continue home dose Monitor INR Takes warfarin 3.75mg MWF and 7.5mg on other days PVD s/p surgery DM 2 On oral meds Well controlled as of recent outpatient hemoglobin A1c of 6.6, September 2019 A1c this admission 6.5 Hold oral meds Continue insulin sliding scale per protocol while inpatient Miralax for constipation DVT prophylaxis. Resume warfarin as above Full code Disposition lives at home Get PT/OT Admission and Anticipated Discharge Date Admission Date: January 27, 2020 Subjective Patient seen and examined. Patient has no new complaint except for constipation Still on high flow nasal cannula 25 L/min to 50% Physical Exam Constitutional: + well hydrated; no acute distress Eyes: PERRL, conjunctivae normal, anicteric sclerae Respiratory: normal respiratory effort; no respiratory distress on high flow nasal cannula. Basal crackles Cardiovascular: Rate/Rhythm: + irregularly irregular S1 S2 Gastrointestinal (Abdomen): normal bowel sounds, soft, nontender, no hepatosplenomegaly Musculoskeletal: No pedal edema Neurologic: PERRL, EOMI, accommodation nl, no face palsy, no dysarthria Psychiatric: A+Ox3, euthymic affect Results & Data Results & Data ([facility]) Vital Signs (Past 12 Hours) Vital Signs Temp Pulse Pulse Pulse Resp BP Pulse Ox 02/03/20 07:35 94 H 18 90 02/03/20 07:22 36.9 C 101 H 22 121/75 92 02/03/20 05:18 36.8 C 94 H 20 115/75 89 L 02/03/20 02:53 96 H 18 89 L 02/03/20 00:08 94 H 18 92 02/03/20 00:00 97 H 02/02/20 23:28 37.2 C 93 H 18 110/66 95 Laboratory Results Laboratory Results - last 24 hr 02/02/20 02/02/20 02/03/20 16:21 20:16 07:21 PT INR Sodium Potassium Chloride Carbon Dioxide Anion Gap BUN Creatinine Est Cr Clr Drug Dosing Est GFR ( Amer) Est GFR (Non-Af Amer) BUN/Creatinine Ratio Glucose POC Glucose 154 H 158 H 137 H Calcium 02/03/20 02/03/20 02/03/20 09:24 09:24 09:24 PT 14.1 H INR 1.4 H Sodium 138 139 Potassium 3.8 3.8 Chloride 105 105 Carbon Dioxide 30 31 Anion Gap 3.0 3.0 BUN 81 H 82 H Creatinine 1.97 H 1.95 H Est Cr Clr Drug Dosing 19.0 19.2 Est GFR ( Amer) 25.8 26.2 Est GFR (Non-Af Amer) 22.3 22.6 BUN/Creatinine Ratio 41.1 H 42.2 H Glucose 123 H 126 H POC Glucose Calcium 9.1 9.0 02/03/20 11:23 PT INR Sodium Potassium Chloride Carbon Dioxide Anion Gap BUN Creatinine Est Cr Clr Drug Dosing Est GFR ( Amer) Est GFR (Non-Af Amer) BUN/Creatinine Ratio Glucose POC Glucose 177 H Calcium
--- NOTE | 2020-02-03 11:37 | Cardiology Progress Note ---
Date of Service February 03, 2020 Assessment & Plan (1) Cor pulmonale, chronic: (2) Atrial flutter with rapid ventricular response: (3) Acute and chronic respiratory failure with hypoxia: (4) Pulmonary hypertension: (5) UTI (urinary tract infection): (6) Acute kidney injury superimposed on chronic kidney disease: Continue Cardizem CD 120mg daily and metoprolol 25 mg twice daily. INR is subtherapeutic today. Dose Coumadin for goal INR of 2.0-3.0. Continue IV Lasix per direction of nephrology. Repeat BMP in a.m. Transition to oral furosemide at discharge. Supplemental oxygen, BiPAP, antibiotics as per internal medicine/pulmonary service. Admission and Anticipated Discharge Date Admission Date: January 27, 2020 Subjective Patient seen and examined at the bedside. Denies chest pain or shortness of breath. Oxygen saturation improved with high flow nasal cannula. Fluid balance -1.4 L. Review of Systems Review of Systems: All systems reviewed & are unremarkable except as noted in HPI & below Physical Exam Constitutional: + ill appearing and + thin Respiratory: no respiratory distress, no labored breathing and no retractions Auscultation: + diminished lung sounds (Bilateral); no crackles, no rales, no rhonchi and no wheezes Cardiovascular: Rate/Rhythm: regular rate Heart Sounds: normal S1 and normal S2; no murmur Vessels: radial pulses present; no JVD Extremities: no edema Gastrointestinal (Abdomen): Inspection/Auscultation: abdomen normal to inspection and normal bowel sounds; abdomen not distended Percussion/Palpation: abdomen soft; abdomen nontender, no guarding and abdomen not rigid Skin: no rashes, warm and dry Neurologic: moves all extremities Motor/Sensory: no tremor Psychiatric: A+Ox3, euthymic affect Results & Data ([facility]) Vital Signs (Past 12 Hours) Vital Signs Temp Pulse Pulse Pulse Resp BP Pulse Ox 02/03/20 11:25 36.8 C 96 H 18 105/70 94 02/03/20 07:35 94 H 18 90 02/03/20 07:22 36.9 C 101 H 22 121/75 92 02/03/20 05:18 36.8 C 94 H 20 115/75 89 L 02/03/20 02:53 96 H 18 89 L 02/03/20 00:08 94 H 18 92 02/03/20 00:00 97 H
--- NOTE | 2020-02-03 11:47 | Pulmonology Progress Note ---
Date of Service February 03, 2020 Assessment & Plan (1) Acute on chronic right heart failure: Impression: 85-year-old female with history of pulmonary hypertension incompletely defined on sildenafil as an outpatient now admitted with atrial fibrillation with rapid ventricular response and associated acute on chronic hypoxemic respiratory failure. Her chest x-ray shows progressive fluid overload Recommendations: 1. Hypoxemia: Improved with diuresis and pulmonary toilet. Would continue to diurese as long as it is tolerated by kidney function. Discussed with respiratory therapy transition to conventional oxygen at this point time. Continue to wean as tolerated to try and keep oxygen saturations at or above 88% 2. Pulmonary hypertension: Suspect this is WHO class II and III disease. Unclear indication for sildenafil in the outpatient setting but apparently this has been continued. She is back on sildenafil and appears hemodynamically stable 3. Remote history of PE: Continue anticoagulation. Appears significantly improved at this point time. Will sign off. Feel free to contact us if we can be of additional assistance. She should follow-up with ANA Moeller in the outpatient pulmonary setting Admission and Anticipated Discharge Date Admission Date: January 27, 2020 Subjective Patient without any new complaints. Her oxygen requirement has weaned significantly. She continues to diurese with stable serum creatinine. Review of Systems Review of Systems: All systems reviewed & are unremarkable except as noted in HPI & below Physical Exam Constitutional: + frail appearing No obvious distress Neck: trachea midline, no thyromegaly Respiratory: normal respiratory effort Basilar crackles Cardiovascular: RRR, no murmur, no edema Gastrointestinal (Abdomen): normal bowel sounds, soft, nontender, no hepatosplenomegaly Musculoskeletal: Extremities: extremities normal to inspection Skin: no rashes, warm and dry Neurologic: Nonfocal exam Lymphatic: no cervical lymphadenopathy Results & Data Results & Data ([facility]) Vital Signs (Past 12 Hours) Vital Signs Temp Pulse Pulse Pulse Resp BP Pulse Ox 02/03/20 11:25 36.8 C 96 H 18 105/70 94 02/03/20 07:35 94 H 18 90 02/03/20 07:22 36.9 C 101 H 22 121/75 92 02/03/20 05:18 36.8 C 94 H 20 115/75 89 L 02/03/20 02:53 96 H 18 89 L 02/03/20 00:08 94 H 18 92 02/03/20 00:00 97 H Laboratory Results 02/02/20 06:25 02/03/20 09:24 Diagnostic Findings No new films PG Care Time/CCT Total # of Minutes Spent Total Time Spent with Patient: Total time spent is greater than 50% in coordination of care (as documented) at patient's floor/unit and/or counseling patient: Coding Level of Care Code 01572 Subseq Hosp Care Lvl 2 Diagnoses Acute on chronic right heart failure I50.813
[2020-02-03] MEDS ORDERED: WARFARIN SOD 1.25 MG TAB PO ONE (16:00)
[2020-02-03] MEDS ORDERED: WARFARIN SOD 1.25 MG TAB PO SCH (16:00)
[2020-02-03] MEDS: POLYETHYLENE (MIRALAX) 17 GM PACK PO SCH (17:36)
[2020-02-03] MEDS: ATORVASTATIN 10 MG TAB PO SCH (20:46)
[2020-02-04] MEDS: INSULIN ASPART 100 UNITS/ML 3 ML PEN SC SCH ×4 (08:00→20:54)
[2020-02-04 08:02] LABS: Hemoglobin 12.5 g/dL (12.0-16.0); Mean Corpuscular Hemoglobin 29.6 pg (25-34); Mean Corpuscular Hgb Conc 32.1 g/dL (32-36); Mean Corpuscular Volume 92.4 fL (80-100); Mean Platelet Volume 9.8 fL (7.4-10.4); Platelet Count 215 K/uL (130-400); RDW Coefficient of Variation 14.2 % (11.5-14.5); RDW Standard Deviation 48.1 fL (36.4-46.3); Red Blood Count 4.22 M/uL (4.2-5.4); White Blood Count 6.21 K/uL (4.8-10.8)
[2020-02-04] MEDS: METOPROLOL TARTRATE 25 MG TAB PO SCH ×2 (08:02→20:49)
[2020-02-04] MEDS: ASPIRIN 81 MG ECTAB PO SCH (08:03)
[2020-02-04] MEDS: SILDENAFIL CITRATE 20 MG TABLET PO SCH ×2 (08:03→20:51)
[2020-02-04] MEDS: INSULIN GLARGINE SOLOSTAR 100 UNITS/ML 3 ML PEN SC SCH (08:04)
[2020-02-04] MEDS: POTASSIUM CHLORIDE CRTAB 20 MEQ TABCR PO SCH ×2 (08:04→20:50)
[2020-02-04] MEDS: FUROSEMIDE 20 MG in SYRINGE 0 ML IV SCH ×2 (08:09→16:16)
[2020-02-04] MEDS: dilTIAZem HCL 120 MG CAPCR PO SCH (08:10)
[2020-02-04 08:11] LABS: INR 1.4 (0.9-1.1); Prothrombin Time 14.7 Seconds (9.0-12.0)
[2020-02-04] MEDS: allopurinoL 100 MG TAB PO SCH ×2 (08:11→20:52)
[2020-02-04] MEDS: POLYETHYLENE (MIRALAX) 17 GM PACK PO SCH (08:18)
[2020-02-04 08:28] LABS: BUN Creatinine Ratio 43.5 (10-20); Calcium 9.3 mg/dl (8.5-10.1); Est GFR (African American) 27.5; Est GFR (Non-African American) 23.7
[2020-02-04] MEDS ORDERED: bisacodyL 10 MG SUPP PR STA (10:50)
--- NOTE | 2020-02-04 10:59 | Hospitalist Progress Note ---
Date of Service February 04, 2020 Assessment & Plan (1) Respiratory failure, acute and chronic: Acute on chronic hypoxic respiratory failure Acute exacerbation of chronic right ventricular failure Pulmonary hypertension Possible NSTEMI Type II demand ischemia Troponin levels 2.2, 2.5, 2.4 Echocardiogram noted: severely dilated right ventricle, severely reduced function of the right ventricle Warper Fixer recommendations noted Accounting Officer recommendations noted Continue Lasix 20 mg twice daily Now weaned off HFNC to nasal oxygen at 6lpm Continue to wean down oxygen Continue sildenafil Atrial flutter Hx PAF as per records Rate controlled Transitioned to diltiazem CD 120mg this morning INR was supratherapeutic on admission INR still subtherapeutic today. Warfarin resumed 3 days ago Will get home dose of 7.5mg today Monitor INR Acute renal failure on CKD stage IV possible cardiorenal syndrome Creatinine 1.5 now 2.0--> 2.1--> 2.6--> 2.4-->2.25-->1.95 Continue to monitor while on Lasix Community Facilitator recommendations noted ESBL E. coli UTI Continue ertapenem day 6 today Complete by tomorrow Hypertension BP on the lower side Continue to hold amlodipine hx PE on Coumadin Supratherapeutic INR INR was 4.3 on admission. Warfarin was initially held Was resumed 3 days ago Still subtherapeutic Will get home dose of 7.5mg today Takes warfarin 3.75mg MWF and 7.5mg on other days PVD s/p surgery DM 2 On oral meds Well controlled as of recent outpatient hemoglobin A1c of 6.6, September 2019 A1c this admission 6.5 Hold oral meds Continue insulin sliding scale per protocol while inpatient Continue miralax Added dulcolax, senna for constipation DVT prophylaxis. Warfarin Full code Disposition lives at home Will be discharged home once medically stable Admission and Anticipated Discharge Date Admission Date: January 27, 2020 Subjective Patient seen and examined Denied chest pain, SOB, cough Denied dysuria, freq, urgency Reports constipation Denied nausea, vomiting, abd pain Successfully weaned off HFNC to nasal oxygen yesterday. Currently on 6L/min Physical Exam Constitutional: + well hydrated; no acute distress Eyes: PERRL, conjunctivae normal, anicteric sclerae Respiratory: normal respiratory effort; no respiratory distress On nasal oxygen 6lpm, mild basilar crackles Cardiovascular: Rate/Rhythm: + irregularly irregular S1 S2 Gastrointestinal (Abdomen): normal bowel sounds, soft, nontender, no hepatosplenomegaly Musculoskeletal: No pedal edema Neurologic: PERRL, EOMI, accommodation nl, no face palsy, no dysarthria Psychiatric: A+Ox3, euthymic affect Results & Data Results & Data ([facility]) Vital Signs (Past 12 Hours) Vital Signs Temp Pulse Pulse Resp BP Pulse Ox 02/04/20 07:34 36.5 C 93 H 16 96/54 L 93 02/04/20 04:00 36.8 C 91 H 20 117/77 90 02/04/20 01:40 91 02/04/20 01:31 90 02/04/20 01:30 87 L 02/04/20 00:17 37.0 C 93 H 18 108/72 88 L Laboratory Results Laboratory Results - last 24 hr 02/03/20 02/03/20 02/03/20 11:23 16:29 20:36 WBC RBC Hgb Hct MCV MCH MCHC RDW Std Deviation RDW Coeff of Bravo Plt Count MPV PT INR Sodium Potassium Chloride Carbon Dioxide Anion Gap BUN Creatinine Est Cr Clr Drug Dosing Est GFR ( Amer) Est GFR (Non-Af Amer) BUN/Creatinine Ratio Glucose POC Glucose 177 H 140 H 185 H Calcium 02/04/20 02/04/20 02/04/20 07:23 07:41 07:41 WBC 6.21 RBC 4.22 Hgb 12.5 Hct 39.0 MCV 92.4 MCH 29.6 MCHC 32.1 RDW Std Deviation 48.1 H RDW Coeff of Bravo 14.2 Plt Count 215 MPV 9.8 PT 14.7 H INR 1.4 H Sodium Potassium Chloride Carbon Dioxide Anion Gap BUN Creatinine Est Cr Clr Drug Dosing Est GFR ( Amer) Est GFR (Non-Af Amer) BUN/Creatinine Ratio Glucose POC Glucose 135 H Calcium 02/04/20 07:41 WBC RBC Hgb Hct MCV MCH MCHC RDW Std Deviation RDW Coeff of Bravo Plt Count MPV PT INR Sodium 141 Potassium 4.0 Chloride 107 Carbon Dioxide 29 Anion Gap 5.0 BUN 81 H Creatinine 1.87 H Est Cr Clr Drug Dosing 20.0 Est GFR ( Amer) 27.5 Est GFR (Non-Af Amer) 23.7 BUN/Creatinine Ratio 43.5 H Glucose 133 H POC Glucose Calcium 9.3
--- NOTE | 2020-02-04 12:11 | Cardiology Progress Note ---
Date of Service February 04, 2020 Assessment & Plan (1) Acute and chronic respiratory failure with hypoxia: Patient presented with mixed etiology deterioration complicated by atrial fibrillation flutter with rapid response. Oxygen demands are now improving heart rates under better control on current therapies patient continues slow diuresis on current diuretics. Suspect will be able to change to oral regimen in a.m. No changes in cardiac medical (2) Cor pulmonale, chronic: (3) Atrial flutter with rapid ventricular response: (4) Pulmonary hypertension: (5) UTI (urinary tract infection): (6) Acute kidney injury superimposed on chronic kidney disease: Admission and Anticipated Discharge Date Admission Date: January 27, 2020 Subjective Patient was seen and examined, chart, medications, telemetry reviewed. Patient remains in persistent atrial fibrillation flutter though rates under better control. Oxygen demands have diminished No fevers chills or cough. No bleeding issues. Review of Systems Review of Systems: All systems reviewed & are unremarkable except as noted in HPI & below Physical Exam Physical Exam: Temp Pulse Resp BP Pulse Ox 36.8 C 98 H 19 107/66 90 01/29/20 11:56 01/29/20 11:56 01/29/20 11:56 01/29/20 11:56 01/29/20 11:56 Constitutional: WD/WN, vitals as above + thin; no acute distress Respiratory: no respiratory distress, no labored breathing and no retractions Auscultation: + diminished lung sounds (Bilateral); no crackles, no rales, no rhonchi and no wheezes Cardiovascular: Rate/Rhythm: + irregularly irregular Heart Sounds: normal S1 and normal S2; no murmur Vessels: radial pulses present; no JVD Extremities: no edema Gastrointestinal (Abdomen): normal bowel sounds, soft, nontender, no hepatosplenomegaly Inspection/Auscultation: abdomen normal to inspection and normal bowel sounds; abdomen not distended Percussion/Palpation: abdomen soft; abdomen nontender, no guarding and abdomen not rigid Skin: Excoriation over bridge of nose with mild eschar Neurologic: PERRL, EOMI, accommodation nl, no face palsy, no dysarthria moves all extremities Motor/Sensory: no tremor Psychiatric: A+Ox3, euthymic affect Results & Data ([facility]) Vital Signs (Past 12 Hours) Vital Signs Temp Pulse Pulse Resp BP BP Pulse Ox 02/04/20 11:50 18 92 02/04/20 11:00 36.4 C L 95 H 20 105/65 96 02/04/20 07:34 36.5 C 93 H 16 96/54 L 93 02/04/20 04:00 36.8 C 91 H 20 117/77 90 02/04/20 01:40 91 02/04/20 01:31 90 02/04/20 01:30 87 L 02/04/20 00:17 37.0 C 93 H 18 108/72 88 L Laboratory Results Laboratory Results - last 24 hr 02/03/20 02/03/20 02/04/20 16:29 20:36 07:23 WBC RBC Hgb Hct MCV MCH MCHC RDW Std Deviation RDW Coeff of Bravo Plt Count MPV PT INR Sodium Potassium Chloride Carbon Dioxide Anion Gap BUN Creatinine Est Cr Clr Drug Dosing Est GFR ( Amer) Est GFR (Non-Af Amer) BUN/Creatinine Ratio Glucose POC Glucose 140 H 185 H 135 H Calcium 02/04/20 02/04/20 02/04/20 07:41 07:41 07:41 WBC 6.21 RBC 4.22 Hgb 12.5 Hct 39.0 MCV 92.4 MCH 29.6 MCHC 32.1 RDW Std Deviation 48.1 H RDW Coeff of Bravo 14.2 Plt Count 215 MPV 9.8 PT 14.7 H INR 1.4 H Sodium 141 Potassium 4.0 Chloride 107 Carbon Dioxide 29 Anion Gap 5.0 BUN 81 H Creatinine 1.87 H Est Cr Clr Drug Dosing 20.0 Est GFR ( Amer) 27.5 Est GFR (Non-Af Amer) 23.7 BUN/Creatinine Ratio 43.5 H Glucose 133 H POC Glucose Calcium 9.3 02/04/20 11:21 WBC RBC Hgb Hct MCV MCH MCHC RDW Std Deviation RDW Coeff of Bravo Plt Count MPV PT INR Sodium Potassium Chloride Carbon Dioxide Anion Gap BUN Creatinine Est Cr Clr Drug Dosing Est GFR ( Amer) Est GFR (Non-Af Amer) BUN/Creatinine Ratio Glucose POC Glucose 294 H Calcium
[2020-02-04] MEDS: ERTAPENEM SODIUM 500 MG in SODIUM CHLORIDE 0.9% 50 ML IV SCH (12:22)
--- NOTE | 2020-02-04 15:44 | Nephrology Progress Note ---
Date of Service February 04, 2020 Assessment & Plan (1) Acute kidney injury superimposed on chronic kidney disease: baseline 1.7 creat and plateau'd today at 1.9-2 from peak value this admission 2.6, up at that time from 2.1 on 01/29 -Continue lasix to 20 mg IV bid17 and follow -Continue K 40 mEq po bid STANDING >> LOW THRESHOLD TO MODIFY DOSE but remains appropriate -daily bmp (2) Respiratory failure, acute and chronic: on 02NC after several days on bipap or hi flow 02; cont to monitor; -Continue Lasix as above. -Titrate FiO2 to maintain sats above 90 Admission and Anticipated Discharge Date Admission Date: January 27, 2020 Subjective up in chair on w/o distress. appetite still borderline; denies new/worrisome voiding sx. Review of Systems Review of Systems: All systems reviewed & are unremarkable except as noted in HPI & below Physical Exam Constitutional: well developed and + frail appearing; no acute distress up in chair on 02 Eyes: EOM intact bilaterally ENMT: Ears: no external ear abnormality Nose: no external nose abnormality Mouth: + dry oral mucous membranes Neck: no nuchal rigidity Respiratory: normal respiratory effort and able to speak in complete sentences; expiratory phase not prolonged Auscultation: + diminished lung sounds and + crackles (L base) Cardiovascular: Rate/Rhythm: regular rhythm and + tachycardic Extremities: + edema (trace BLE) Gastrointestinal (Abdomen): Inspection/Auscultation: normal bowel sounds Percussion/Palpation: abdomen soft; abdomen nontender Musculoskeletal: Extremities: strength 5/5 throughout Skin: no rashes, warm and dry Neurologic: pearson, fluent speech, no tremor Psychiatric: Orientation: alert, oriented to person and oriented to place Affect: euthymic affect Insight: + limited insight Results & Data ([facility]) Vital Signs (Past 12 Hours) Vital Signs Temp Pulse Pulse Resp BP BP Pulse Ox 02/04/20 11:50 18 92 02/04/20 11:00 36.4 C L 95 H 20 105/65 96 02/04/20 07:34 36.5 C 93 H 16 96/54 L 93 02/04/20 04:00 36.8 C 91 H 20 117/77 90 Laboratory Results 02/04/20 07:41 02/04/20 07:41
[2020-02-04] MEDS: WARFARIN SOD 7.5 MG TAB PO SCH (16:15)
[2020-02-04] MEDS: ATORVASTATIN 10 MG TAB PO SCH (20:49)
[2020-02-05 07:47] LABS: INR 1.7 (0.9-1.1); Prothrombin Time 17.3 Seconds (9.0-12.0)
[2020-02-05 07:59] LABS: BUN Creatinine Ratio 44.4 (10-20); Calcium 8.7 mg/dl (8.5-10.1); Creatinine Clr Calc Pharmacy 20.4 ml/min; Est GFR (African American) 27.7; Est GFR (Non-African American) 23.9; Phosphorus 3.3 mg/dl (2.5-4.9); Potassium 4.8 mmol/L (3.5-5.1)
[2020-02-05] MEDS: INSULIN ASPART 100 UNITS/ML 3 ML PEN SC SCH ×4 (08:29→21:59)
[2020-02-05] MEDS: METOPROLOL TARTRATE 25 MG TAB PO SCH ×2 (08:31→21:25)
[2020-02-05] MEDS: POTASSIUM CHLORIDE CRTAB 20 MEQ TABCR PO SCH (08:31)
[2020-02-05] MEDS: dilTIAZem HCL 120 MG CAPCR PO SCH (08:32)
[2020-02-05] MEDS: ASPIRIN 81 MG ECTAB PO SCH (08:33)
[2020-02-05] MEDS: SILDENAFIL CITRATE 20 MG TABLET PO SCH ×2 (08:33→21:24)
[2020-02-05] MEDS: INSULIN GLARGINE SOLOSTAR 100 UNITS/ML 3 ML PEN SC SCH (08:33)
[2020-02-05] MEDS: SENNA 8.6 MG TAB PO SCH (08:33)
[2020-02-05] MEDS: allopurinoL 100 MG TAB PO SCH ×2 (08:34→21:24)
[2020-02-05] MEDS: FUROSEMIDE 20 MG in SYRINGE 0 ML IV SCH (08:44)
[2020-02-05] MEDS: POLYETHYLENE (MIRALAX) 17 GM PACK PO SCH (08:44)
--- NOTE | 2020-02-05 10:07 | Hospitalist Progress Note ---
Date of Service February 05, 2020 Assessment & Plan (1) Respiratory failure, acute and chronic: Acute on chronic hypoxic respiratory failure Acute exacerbation of chronic right ventricular failure Pulmonary hypertension Possible NSTEMI Type II demand ischemia Troponin levels 2.2, 2.5, 2.4 Echocardiogram noted: severely dilated right ventricle, severely reduced function of the right ventricle Commercial Kitchen Service Technician recommendations noted Chief Pharmacist recommendations noted Continue sildenafil Change from iv lasix 20mg bid to po 40mg BID17 Monitor I/O Continue to wean down oxygen Atrial flutter Hx PAF as per records Rate controlled Transitioned to diltiazem CD 120mg this morning INR was supratherapeutic on admission INR is still subtherapeutic but improving Monitor INR Acute renal failure on CKD stage IV possible cardiorenal syndrome Creatinine 1.5 now 2.0--> 2.1--> 2.6--> 2.4-->2.25-->1.95-->1.86 Continue to monitor while on Lasix Product Tester recommendations noted ESBL E. coli UTI Complete ertapenem today Hypertension BP on the lower side Continue to hold amlodipine hx PE on Coumadin Supratherapeutic INR INR was 4.3 on admission. Warfarin was initially held Was resumed 4 days ago Still subtherapeutic but improving. INR is 1.7 today Continue home dose Takes warfarin 3.75mg MWF and 7.5mg on other days PVD s/p surgery DM 2 On oral meds Well controlled as of recent outpatient hemoglobin A1c of 6.6, September 2019 A1c this admission 6.5 Hold oral meds Continue insulin sliding scale per protocol while inpatient Continue miralax Added dulcolax, senna for constipation DVT prophylaxis. Warfarin Full code Disposition lives at home Possible discharge in 1-2 days Admission and Anticipated Discharge Date Admission Date: January 27, 2020 Subjective Patient seen and examined. Has no new complaint except for some constipation However, patient had BM yesterday but stated it was small volume Required oxymask overnight due to desaturation but currently on 6l/min No chest pain. Denied cough or shortness of breath No abd pain, nausea, vomiting Physical Exam Constitutional: + well hydrated; no acute distress Eyes: PERRL, conjunctivae normal, anicteric sclerae Respiratory: normal respiratory effort; no respiratory distress Bibasilar crackles Cardiovascular: Rate/Rhythm: + irregularly irregular S1 S2 Gastrointestinal (Abdomen): normal bowel sounds, soft, nontender, no hepatosplenomegaly Musculoskeletal: +pedal edema Neurologic: PERRL, EOMI, accommodation nl, no face palsy, no dysarthria Psychiatric: A+Ox3, euthymic affect Results & Data Results & Data ([place]) Vital Signs (Past 12 Hours) Vital Signs Temp Pulse Resp BP BP Pulse Ox 02/05/20 08:00 36.3 C L 85 20 105/64 90 02/05/20 04:00 37 C 92 H 20 116/76 91 02/04/20 23:05 37 C 91 H 20 114/74 90 02/04/20 23:00 80 L Laboratory Results Laboratory Results - last 24 hr 02/04/20 02/04/20 02/04/20 11:21 16:42 20:18 PT INR Sodium Potassium Chloride Carbon Dioxide Anion Gap BUN Creatinine Est Cr Clr Drug Dosing Est GFR ( Amer) Est GFR (Non-Af Amer) BUN/Creatinine Ratio Glucose POC Glucose 294 H 156 H 94 Calcium Phosphorus Magnesium 02/05/20 02/05/20 02/05/20 07:25 07:25 07:43 PT 17.3 H INR 1.7 H Sodium 140 Potassium 4.8 D Chloride 107 Carbon Dioxide 30 Anion Gap 3.0 BUN 83 H Creatinine 1.86 H Est Cr Clr Drug Dosing 20.4 Est GFR ( Amer) 27.7 Est GFR (Non-Af Amer) 23.9 BUN/Creatinine Ratio 44.4 H Glucose 106 H POC Glucose 118 H Calcium 8.7 Phosphorus 3.3 Magnesium 2.0
--- NOTE | 2020-02-05 11:21 | Nephrology Progress Note ---
Date of Service February 05, 2020 Assessment & Plan (1) Acute kidney injury superimposed on chronic kidney disease: baseline 1.7 creat and plateau'd today at 1.9-2 from peak value this admission 2.6, up at that time from 2.1 on 01/29. -reasonable now to change lasix to 40 mg po bid17 and follow -lowered K dose to 20mEq daily, starting today; may well need higher dose but will monitor -daily bmp -follows w/ [facility], last seen 01/30. (2) Respiratory failure, acute and chronic: on 02NC after several days on bipap or hi flow 02; cont to monitor; on 4- 5L home 02 as OP -Continue Lasix as above - may be slightly more overloaded today; will monitor -Titrate FiO2 to maintain sats above 90 Admission and Anticipated Discharge Date Admission Date: January 27, 2020 Subjective seen on rounds at 0950 > up in chair no complaints of sob, worsening edema, worsening edema Review of Systems Review of Systems: All systems reviewed & are unremarkable except as noted in HPI & below Physical Exam Constitutional: well developed and + frail appearing; no acute distress up in chair on 02 Eyes: EOM intact bilaterally ENMT: Ears: no external ear abnormality Nose: no external nose abnormality Mouth: + dry oral mucous membranes Neck: no nuchal rigidity Respiratory: normal respiratory effort and able to speak in complete sentences; expiratory phase not prolonged Auscultation: + diminished lung sounds and + crackles (today bibasila) Cardiovascular: Rate/Rhythm: regular rhythm and + tachycardic Extremities: + edema (trace -1+ BLE) Gastrointestinal (Abdomen): Inspection/Auscultation: normal bowel sounds Percussion/Palpation: abdomen soft; abdomen nontender Musculoskeletal: Extremities: strength 5/5 throughout Skin: no rashes, warm and dry Neurologic: pearson, fluent speech, no tremor Psychiatric: Orientation: alert, oriented to person and oriented to place Affect: euthymic affect Insight: + limited insight Results & Data ([facility]) Vital Signs (Past 12 Hours) Vital Signs Temp Pulse Resp BP BP Pulse Ox 02/05/20 08:00 36.3 C L 85 20 105/64 90 02/05/20 04:00 37 C 92 H 20 116/76 91 Laboratory Results 02/04/20 07:41 02/05/20 07:25
[2020-02-05] MEDS: ERTAPENEM SODIUM 500 MG in SODIUM CHLORIDE 0.9% 50 ML IV SCH (11:53)
[2020-02-05] MEDS: WARFARIN SOD 7.5 MG TAB PO SCH (16:37)
[2020-02-05] MEDS: FUROSEMIDE 40 MG TAB PO SCH (17:21)
[2020-02-05] MEDS: ATORVASTATIN 10 MG TAB PO SCH (21:25)
[2020-02-06] MEDS: SILDENAFIL CITRATE 20 MG TABLET PO SCH (08:00)
[2020-02-06] MEDS: ASPIRIN 81 MG ECTAB PO SCH (08:00)
[2020-02-06] MEDS: allopurinoL 100 MG TAB PO SCH (08:00)
[2020-02-06] MEDS: METOPROLOL TARTRATE 25 MG TAB PO SCH (08:00)
[2020-02-06] MEDS: POTASSIUM CHLORIDE CRTAB 20 MEQ TABCR PO SCH (08:01)
[2020-02-06] MEDS: dilTIAZem HCL 120 MG CAPCR PO SCH (08:01)
[2020-02-06] MEDS: SENNA 8.6 MG TAB PO SCH (08:02)
[2020-02-06] MEDS: FUROSEMIDE 40 MG TAB PO SCH (08:02)
[2020-02-06] MEDS: POLYETHYLENE (MIRALAX) 17 GM PACK PO SCH (08:02)
[2020-02-06] MEDS: INSULIN GLARGINE SOLOSTAR 100 UNITS/ML 3 ML PEN SC SCH (08:04)
[2020-02-06] MEDS: INSULIN ASPART 100 UNITS/ML 3 ML PEN SC SCH ×2 (08:06→12:21)
[2020-02-06 08:11] LABS: INR 1.9 (0.9-1.1); Prothrombin Time 19.6 Seconds (9.0-12.0)
[2020-02-06 08:27] LABS: BUN Creatinine Ratio 50.8 (10-20); Calcium 9.2 mg/dl (8.5-10.1); Creatinine Clr Calc Pharmacy 25.4 ml/min; Est GFR (African American) 36.8; Est GFR (Non-African American) 31.8; Potassium 4.2 mmol/L (3.5-5.1)
--- NOTE | 2020-02-06 09:28 | Pharmacy Report ---
Pharmacy Glycemic Short Note 2 - Date of Service February 06, 2020 - Glycemic Short BSG Results (Last 24 hours): 02/05/20 02/05/20 02/05/20 11:40 16:01 20:51 Glucose POC Glucose 283 H 141 H 75 02/06/20 02/06/20 07:07 07:59 Glucose 82 POC Glucose 93 OUTPATIENT ANTIDIABETIC REGIMEN: * Metformin 500 mg PO BIDM * Glipizide 2.5 mg PO BID * HbA1c: 6.5% (01/27/20) ASSESSMENT: 02/06/20: * BSGs of 118, 283, 141, and 75 mg/dL yesterday * Patient received 33 units of insulin (9 units of basal and 24 units of prandial/correctional) * Continues on ertapenem 500 mg IV daily for ESBL E.coli UTI * RONY continues to resolve (SCr of 1.47 mg/dL this morning) * Fasting BSG of 93 mg/dL this morning - continue Lantus 02/01/20: * BH is an 85 year old female admitted on 01/27 for acute respiratory failure * This is acute on chronic secondary to pulmonary hypertension/decompensated heart failure * BSGs yesterday, 122, 290, 96, 75 mg/dL * Plan to loosen Novolog parameters given downward trend throughout the day * Fasting BSG of 80 mg/dL this morning - will plan to decrease Lantus today * Patient also found to have ESBL E.coli UTI - currently receiving ertapenem * Pre-lunch BSG of 290 mg/dL (of note: this was obtained ~1.5 hr after AM Novolog was given) PLAN FOR INPATIENT GLYCEMIC CONTROL: * Hold outpatient oral diabetes medications (metformin and glipizide). Utilizing SQ basal bolus insulin regimen for inpatient use. * Basal insulin - continue * Lantus 9 units SQ daily * Bolus insulin - continue * NovoLog per scale ACHS or Q6hrs while NPO * Goal Range: Low 110 mg/dL - High 160 mg/dL * Correction Factor: 30 mg/dL/unit * Nutritional / Prandial insulin per carb ratio of 1 unit per 11 grams CHO consumed * Tighten breakfast carb ratio to 1 unit per 8 grams CHO consumed * Please note that the plan above was derived based on current level of insulin resistance and hospital stress. These recommendations are appropriate for inpatient admission only. Plan of care upon discharge will need to be reassessed to avoid potential outpatient hypo/hyperglycemia. Thank you.
--- NOTE | 2020-02-06 10:41 | Discharge Summary ---
Date of Service February 06, 2020 Admission HPI Per Admitting Provider History obtained from patient, family, and records. Medical history significant for chronic respiratory failure secondary to pulmonary hypertension secondary to nocturnal hypoxemia on home O2, chronic diastolic heart failure EF of 65-69% (TTE 2017), PAF, HTN, PVD status post surgery, history PE on Coumadin, DM2 on oral meds, CRI (baseline creatinine 1.3) Last confinement November 2017 for respiratory failure secondary to possible aspiration. Last week, patient noted achy substernal chest heaviness without radiation and shortness of breath at home during exertion. No unusual cough symptoms. Chest discomfort relieved by nitroglycerin intake at home. Patient did not want to go to the ER for evaluation as per family. Worsening shortness of breath on exertion the next few days along with fluid retention as per patient. Minimal abdominal discomfort, patient worried about "silent" kidney stones. Denies OTC NSAID intake or dietary indiscretion. Patient seen at PCP's office yesterday. Blood pressure noted to be low, patient noted to be tachycardic but regular as per outpatient documentation. ER evaluation recommended by PCP due to concerns about possible heart failure. Chest x-ray showed congestion as per PCP note. Outpatient serum creatinine noted to be 2. Patient eventually heeded PCP's advice and family's urging to go to the ER to get evaluated. Patient noted to be in rapid A. fib, cardiac rate 150s at the highest upon arrival at the ER. IV Cardizem infusion initiated at the ER. Medical History as above Surgical History : Carotid endarterectomy, cystoscopy Family History : ESRD Personal/Social history : Non-smoker, no EtOH intake, lives by herself Admission Exam Per Admitting Provider GENERAL: Comfortable, pleasant, minimal respiratory distress SKIN: Normal color , warm HEENT: [place] palpebral conjunctivae, no ptosis, dry buccal mucosa, O2 mask in place NECK : Supple, no tenderness CHEST : Decreased breath sounds, occasional expiratory wheezes, no tenderness HEART : Irregular, tachycardic, no obvious murmurs ABDOMEN: Some distention, nontender EXTREMITIES : Minimal LE swelling, no LE tenderness, no other conspicuous deformities noted NEUROLOGIC : Coherent, no facial asymmetry, mild hearing impairment, no other gross focality Principal Diagnosis Acute on chronic hypoxic respiratory failure Acute exacerbation of chronic right ventricular failure Pulmonary hypertension Acute on chronic kidney disease ESBL E. coli Urinary Tract Infection Supratherapeutic INR Discharge Exam Constitutional + well hydrated; no acute distress Eyes PERRL, conjunctivae normal, anicteric sclerae ENMT external ear and nose normal, oropharynx normal On nasal cannula Respiratory normal respiratory effort; no respiratory distress Mild bibasilar crackles Cardiovascular Rate/Rhythm: + irregularly irregular S1 S2 Gastrointestinal (Abdomen) normal bowel sounds, soft, nontender, no hepatosplenomegaly Musculoskeletal Trace pedal edema Neurologic PERRL, EOMI, accommodation nl, no face palsy, no dysarthria Psychiatric A+Ox3, euthymic affect Discharge Data Allergies Allergy/AdvReac Type Severity Reaction Status Date / Time Sulfa (Sulfonamide Allergy Unknown Unknown Verified 01/27/20 21:43 Antibiotics) Consultations 01/27/20 22:26 ED Decision to Admit Stat 01/28/20 01:07 Consult Cardiology Routine Consult Nephrology Routine 01/28/20 11:27 Consult Pulmonology Routine Ordered Studies 01/27/20 23:50 CT abd pelvis wo con Urgent Lower chest: The heart is enlarged. There is a small pericardial effusion. There are small bilateral pleural effusions. There are dependent basilar opacities, likely atelectatic although an infectious/inflammatory processes could appear similar. There is a small hiatal hernia Liver: The unenhanced liver is normal in size, contour, and attenuation. There is no intrahepatic biliary ductal dilatation. Gallbladder: Cholelithiasis Spleen: Normal in size and attenuation. Pancreas: Unremarkable. Adrenal glands: There is mild bilateral adrenal gland thickening. Kidneys: There is bilateral renal atrophy. There is a 13 mm left renal cyst. No ureteral or bladder calculi are visualized. Bowel: There are no transition zones indicate bowel obstruction. There is colonic diverticulosis. There is no evidence of acute diverticulitis. There is mild nonspecific duodenal wall thickening. There is minimal cecal wall thickening. By history the patient is status post a prior appendectomy. Peritoneum: There is trace fluid within the paracolic gutters. There is no free intraperitoneal air. There is suspected anasarca. Vasculature: There is no evidence of abdominal aortic aneurysm. There are atherosclerotic arterial calcifications. Adenopathy: Para-aortic lymph nodes are the upper limits of normal in size. Pelvic viscera: There are no pathologic adnexal masses. There is mild presacral edema. This remain similar to the prior study. Skeletal structures: There is generalized body wall edema. IMPRESSION: 1. No evidence of bowel obstruction. No evidence of free air 2. Cholelithiasis 3. Diverticulosis. No evidence of acute diverticulitis 4. Nonspecific duodenal wall thickening, and borderline cecal wall thickening 5. Small bilateral pleural effusions and basilar opacity statistically atelectatic 6. Anasarca. Hospital Course (1) Respiratory failure, acute and chronic: Acute on chronic hypoxic respiratory failure Acute exacerbation of chronic right ventricular failure Pulmonary hypertension Possible NSTEMI Type II demand ischemia Troponin levels 2.2, 2.5, 2.4 Echocardiogram noted: severely dilated right ventricle, severely reduced function of the right ventricle Was evaluated by Psychologist Industrial Organizational and Peoplesoft Consultant while inpatient Continue sildenafil. Continued on 20mg BID, dose tolerated in the hospital Patient was on high flow nasal oxygen for many days. Got IV diuresis Was successfully weaned off high flow nasal cannula to nasal cannula to 5l/min to patient's baseline home O2 requirement of 4-5l/min Home lasix increased to 40mg BID17 Atrial flutter Hx PAF as per records Had rapid ventricular rate which was controlled with diltiazem with aid of Psychologist Industrial Organizational Was transitioned to diltiazem CD 120mg Started on metoprolol INR was supratherapeutic on admission Monitor INR Acute renal failure on CKD stage IV possible cardiorenal syndrome Creatinine 1.5 baseline On admission, Cr was 2.0--> 2.1--> 2.6--> 2.4-->2.25-->1.95-->1.86-->1.47 (to day) Continue to monitor while on Lasix Patient was comanaged with the Floor Inspector Metformin was discontinued Glipizide reduced to 2.5mg daily Avoid nephrotoxins Patient to follow up with Floor Inspector outpatient Floor Inspector recommendations noted Follow up BMP on 02/10/20 to monitor renal function and potassium level ESBL E. coli UTI Had ESBL E coli UTI Completed ertapenem inpatient Hypertension Controlled BP has been in 100-120/60s Amlodipine was discontinued hx PE on Coumadin Supratherapeutic INR INR was 4.3 on admission. Warfarin was initially held Was resumed once therapeutic INR got therapeutic but improving INR is 1.9 today Continue home dose Takes warfarin 3.75mg MWF and 7.5mg on other days Follow up anticoagulation clinic PVD s/p surgery DM 2 On oral meds Well controlled as of recent outpatient hemoglobin A1c of 6.6, September 2019 A1c this admission 6.5 Metformin discontinued due to renal function Glipizide reduced to 2.5mg daily per renal function Discussed with patient about new medications and changes to others CM arranged home health services Appt made for PCP, MTM, Floor Inspector Cardiology will contact patient for earlier appointment. Due to patient's multiple problems, high readmission risk Total Time Total Time Spent Total Time Spent (In Minutes): 60 Total Time Includes: Examination of the Patient, Discharge Planning, Medication Reconciliation and Communication With Other Providers Discharge Plan Discharge Items Patient Disposition: Home - Home Health Services Reason For Visit: RESP FAILURE Discharge Diagnosis: Acute on chronic hypoxic respiratory failure Acute exacerbation of chronic right ventricular failure Pulmonary hypertension Acute on chronic kidney disease ESBL E. coli Urinary Tract Infection Supratherapeutic INR Activity: Resume your previous activity Non-emergency contact: Primary Care Provider and Psychologist Industrial Organizational Call non-emergency contact if: you have any medication questions and your symptoms worsen Follow-up/Referrals: Peter Lester MD [Primary Care Provider] - 02/16/20 9:20 am (Date & Time 02/16/2020 9:20 AM Provider Peter Lester MD Department Family [facility], [place] ) Roxane Glass PA-C [Physician Bd Special Education Teacher] - (Date & Time 02/20/2020 10:00 AM Provider Roaxne Glass PA-C Department Nephrology, [place] ) Diet: Carb Consistent or DM2 and Heart Healthy Fluids: 1800ml (7 cups) Ambulatory Orders: Basic Metabolic Panel (Routine) Timeframe: 20200210 Location: Determined by Patient Ordered By: Delicia Sharma Attending Provider Instructions: Mrs Awad. You came to the hospital complaining of chest heaviness and shortness of breath. You were evaluated and treated for multiple conditions as listed above. You completed antibiotics for your urinary infections. Certain adjustments were made to your medications: Your lasix was changed to 40mg twice daily Please stop taking amlodipine You were started on new medication called diltiazem Your glipizide was reduced to 2.5mg one tablet once a day You were started on tablet potassium. Please do the blood test basic metabolic panel (BMP) next week to monitor your kidney and potassium levels You were also started on metoprolol Please take your sildenafil 20mg twice a day for now until follow up with your house wirer helper. Please stop taking metformin. Please take all medications as prescribed. It is very important that you follow up with your Primary Doctor, Psychologist Industrial Organizational and Nephrology (kidney doctor) Please continue to follow up with anticoagulation clinic for continued management of your warfarin. It was a pleasure taking care of you. Pending Studies at Discharge: No Stand-Alone Forms: My [facility] [employer], Smoking Cessation Medications and DC Order Prescriptions: New diltiazem HCl 120 mg Capsule,Extended Release 24hr 120 mg PO QAM 30 Days Qty: 30 RF: 0 metoprolol tartrate 25 mg Tablet 25 mg PO BID 30 Days Qty: 60 RF: 0 sennosides [Senokot] 8.6 mg Tablet 17.2 mg PO QAM 30 Days Qty: 60 RF: 0 potassium chloride [Klor-Con M20] 20 mEq Tablet,Er Particles/Crystals 20 meq PO DAILY 30 Days Qty: 30 RF: 0 Continued albuterol sulfate 90 mcg/actuation HFA aerosol inhaler 90 mcg inhalation .INHALE 2 PUFFS EVERY Qty: 1 RF: 0 (DME) Oxygen Home Liters Per Minute See Dose Instructions .ROUTE .MEDSUPPLY Qty: 1 RF: 0 albuterol sulfate 2.5 mg /3 mL (0.083 %) Solution For Nebulization 2.5 mg INHALATION Q4 PRN (Reason: Shortness Of Breath) RF: 0 atorvastatin 10 mg Tablet 10 mg PO QPM RF: 0 allopurinol 100 mg Tablet 100 mg PO BID RF: 0 acetaminophen [Tylenol Arthritis Pain] 650 mg Tablet Extended Release 650 mg PO BID PRN (Reason: Pain) RF: 0 nitroglycerin [Nitrostat] 0.4 mg Tablet, Sublingual 0.4 mg Sublingual DIRECTED PRN (Reason: Chest Pain) RF: 0 glucosamine-chondroitin [Osteo Bi-Flex] 250-200 mg Tablet 1 tab PO DAILY RF: 0 aspirin [Aspirin Low Dose] 81 mg Tablet,Delayed Release (Dr/Ec) 81 mg PO DAILY RF: 0 warfarin [Jantoven] 7.5 mg tablet 7.5 mg PO UD RF: 0 Changed furosemide 40 mg tablet 40 mg PO BID17 30 Days Qty: 60 RF: 0 glipizide 5 mg tablet 2.5 mg PO DAILY 30 Days Qty: 15 RF: 0 sildenafil (pulm.hypertension) 20 mg tablet 20 mg PO BID 30 Days Qty: 60 RF: 1 Discontinued amlodipine 2.5 mg tablet 7.5 mg PO QAM Qty: 90 RF: 5 metformin 500 mg Tablet 500 mg PO BID RF: 0 Discharge Orders: Discharge Order (Routine); Ordered 02/06/20 Ordered By: Delicia Allen/Other Patient Handouts: AFL/Afib, Managing Type 2 Diabetes, Taking Potassium, Understanding Atrial Fibrillation, Senna tablets or capsules, Metoprolol tablets, Diltiazem extended-release capsules or tablets Admission Data Admit Date/Time: 01/27/20 23:54 Attending Provider: Delicia Aviles I. Admit Provider: Favian Odom Primary Care Provider: Peter Lester Other Providers: Favian Odom ; Vinayak Perez ; Eros Oneill ; Jairo Dove ; Louie Mcguire ; Maximiliano Becker ; Lane Farias ; Ankita Dykes ; Praveena Irving ; Sal Adames ; Alka Trejo ; Chandu Bhandari ; Taylor Liu ; Roxane Glass ; Aamir Jolley ; Adi Wills ; Keesha Phipps ; Srinath Gregory ; [facility] Other Interventions: Discharge Summary Assessment (RN) Last Done: 02/06/20 13:14
[2020-02-06] MEDS ORDERED: INSULIN ASPART 100 UNITS/ML 3 ML PEN SC SCH (16:30)
--- NOTE | 2020-02-06 17:17 | Nephrology Progress Note ---
Date of Service February 06, 2020 Assessment & Plan (1) Acute kidney injury superimposed on chronic kidney disease: baseline 1.7 creat and plateau'd today at 1.9-2 from peak value this admission 2.6, up at that time from 2.1 on 01/29. -cont now and at d/c lasix to 40 mg po bid17 -cont lowered K at 20mEq daily; may well need higher dose but will monitor -bmp w/in a week fo d/c -follows w/ [facility], last seen 01/30 -- note she has f/u appt mid Feb, which is appropriate (2) Respiratory failure, acute and chronic: on 02NC after several days on bipap or hi flow 02; cont to monitor; on 4- 5L home 02 as OP -Continue Lasix as above - may be slightly more overloaded today; will monitor -Titrate FiO2 to maintain sats above 90 Admission and Anticipated Discharge Date Admission Date: January 27, 2020 Subjective seen on rounds at 0750; care coordinated w/ Dr Aviles about 0815. pt feels breathing at baseline; denies appetite problem, worse edema, new/worse voiding issues Review of Systems Review of Systems: All systems reviewed & are unremarkable except as noted in HPI & below Physical Exam Constitutional: well developed and + frail appearing; no acute distress Eyes: EOM intact bilaterally ENMT: Ears: no external ear abnormality Nose: no external nose abnormality Mouth: + dry oral mucous membranes Neck: no nuchal rigidity Respiratory: normal respiratory effort and able to speak in complete sentences; expiratory phase not prolonged Auscultation: + diminished lung sounds (raj R lung garcia) and + crackles (today bibasilar again) Cardiovascular: Rate/Rhythm: regular rhythm and + tachycardic Extremities: + edema (trace BLE) Gastrointestinal (Abdomen): Inspection/Auscultation: normal bowel sounds Percussion/Palpation: abdomen soft; abdomen nontender Musculoskeletal: Extremities: strength 5/5 throughout Skin: no rashes, warm and dry Psychiatric: Orientation: alert, oriented to person and oriented to place Affect: euthymic affect Insight: + limited insight Results & Data ([place]) Vital Signs (Past 12 Hours) Vital Signs Temp Pulse Pulse Resp BP BP Pulse Ox 02/06/20 13:14 36.3 C L 95 H 18 105/64 94 02/06/20 13:11 36.3 C L 94 H 18 109/72 94 02/06/20 11:29 36.3 C L 95 H 18 109/72 94 02/06/20 07:55 36.8 C 94 H 17 124/81 91 Laboratory Results 02/04/20 07:41 02/06/20 07:07
[2020-02-07] MEDS ORDERED: INSULIN ASPART 100 UNITS/ML 3 ML PEN SC SCH (07:30)
--- NOTE | 2020-02-18 07:47 | Coding Query ---
CODING QUERY To promote full compliance with coding requirements relating to patient care, provider participation is requested in all cases of braille coder uncertainty. Please assist us with the question(s) below: Coding Question(s): Patient admitted with acute/chronic right heart failure, acute/chronic respiratory failure. Cardiology progress note 01/27 documents NSTEMI due to CAD or supply/demand mismatch. Other progress notes document NSTEMI Type 2 Demand Ischemia. Seeking to clarify the Myocardial Infarction Please check below the diagnosis that was treated during this Inpatient Stay. Thanks for your help! LE Gordon [facility] Physician's Response: NSTEMI Myocardial Infarction Type 2 x____ Type 2 Demand Ischemia Other/ Please document : Principal Diagnosis: "that condition established after study, to be chiefly responsible for occasioning the admission of the patient to the hospital for care." Co-Existing Principal Diagnosis: "when two or more diagnoses equally meet the criteria for principal diagnosis as determined by the circumstances of admission, diagnostic work up, and/or therapy provided, and the Alphabetic Index, Tabular List, or another coding guideline does not provide sequencing direction, any one of the diagnoses may be sequenced first." "When the physician has documented what appears to be a current diagnosis in the body of the record, but has not included the diagnosis in the final diagnostic statement, the physician should be asked whether the diagnosis should be added." (Source Coding Clinic 2 QTR90. p3-4) ENRIQUE
== END 2020-02-06 13:40 | disposition home health service (06) | DRG 291 ==
LOC: ED 18:25 → 1E 23:54 → SUATTDRO 23:54 → 1E 01-28 01:12 → 2S 01-28 11:13